=== PATIENT | female | born 1960 | race Caucasian/White ===

== ENCOUNTER → 2017-10-16 12:39 | Outpatient (CLI) | payer MEDICARE, SELFPAY ==
[2017-10-16 13:11] LABS: Alanine Aminotransferase 34 IU/L (9-52); Albumin 4.7 g/dL (3.5-5.0); Albumin Globulin Ratio 1.5 (1.0-2.8); Alkaline Phosphatase 65 U/L (38-126); Aspartate Aminotransferase 27 IU/L (14-36); Bilirubin Total 0.9 mg/dL (0.2-1.3); Blood Urea Nitrogen 12 mg/dL (7-17); Calcium 9.5 mg/dL (8.4-10.2); Carbon Dioxide 27 mmol/L (22-32); Chloride 97 mmol/L (98-107); Estimated Glomerular Filt Rate > 60.0 mL/min (>60); Globulin 3.2 g/dL (1.7-4.1); Glucose 134 mg/dL (70-100); HEMOLYSIS < 15 (0-50); Potassium 3.8 mmol/L (3.4-5.1); Sodium 134 mmol/L (137-145); Total Protein 7.9 g/dL (6.3-8.2)
[2017-10-16 14:11] LABS: Thyroid Stimulating Hormone 2.46 uIU/mL (0.47-4.68)
== END ==
PROVIDERS: PCP Nurse Practitioner; Visit Provider Internal Medicine Cardiovascular Disease
DX: T46.2X5A Adverse effect of other antidysrhythmic drugs, initial encounter (principal); I49.8 Other specified cardiac arrhythmias
CPT/HCPCS: 36415; 80053; 84443

== ENCOUNTER 2018-04-11 13:38 | Observation (INO) | payer MEDICARE, SELFPAY ==
[2018-04-11 13:50] VITALS: BP 202/131; PULSE 72; RESP 18; TEMP 36.3; O2SAT 100; BMI 21.7
--- NOTE | 2018-04-11 13:54 | ED_ITS ---
HPI - General Adult General Chief complaint: Hypertension Stated complaint: HIGH BLOOD PRESSURE Time Seen by Provider: 04/11/18 13:53 Source: patient Mode of arrival: ambulatory Limitations: no limitations History of Present Illness HPI narrative: 57-year-old female with a known history of hypertension currently on amlodipine and metoprolol. She states she did take her medications this morning. She states she was sitting on her couch where she started to not feel very well. Had fairly vague symptoms although did describe a chest tightness. No shortness of breath. She states she went took her blood pressure in the top number was 240. She also states she has slight headache and then noticed she had some redness around her left eye. She states that her blood pressure does fluctuate. She does not know where she ?normally runs ?no lower extremity swelling. Related Data Home Medications Medication Instructions Recorded Confirmed ibuprofen 200 mg PO PRN #0 08/29/10 12/09/17 amiodarone 400 mg PO QDAY #0 10/27/16 12/09/17 propranolol 80 mg PO QDAY #0 10/27/16 12/09/17 metoprolol tartrate 25 mg tablet 25 mg PO BID 12/09/17 12/09/17 Allergies Allergy/AdvReac Type Severity Reaction Status Date / Time duloxetine [DULOXETINE] Allergy Mild RASH, Verified 04/11/18 13:50 INCREASED HEART RATE. Review of Systems Constitutional Reports fatigue, Denies fever(s), Denies frequent falls, Reports headache(s), Reports malaise and Denies weakness Eyes Comments: Redness around the left eye ENT Ears, Nose, Mouth, and Throat: Denies vertigo, Denies dizziness and Reports headache(s) Cardiovascular Reports chest pain, Denies diaphoresis, Denies syncope, Denies rapid heart rate , Denies edema, Denies irregular heart rhythm, Denies leg edema, Denies lightheadedness, Denies palpitations, Denies dyspnea and Denies slow heart rate Respiratory Denies cough, Denies dyspnea and Denies wheezing Gastrointestinal Gastrointestinal: Denies abdominal pain, Denies nausea and Denies vomiting Genitourinary Denies dysuria Musculoskeletal Denies myalgias and Denies arthralgias Integumentary/Breasts Denies lesions Neurologic Denies confusion, Denies vertigo, Denies dizziness, Denies syncope, Denies frequent falls, Reports headache(s) and Denies weakness Psychiatric Denies confusion Endocrine Reports fatigue and Denies palpitations Hematologic/Lymphatic Comments: Not on anticoagulation Allergic/Immunologic Denies wheezing PFSH Medical History Hypertension (Acute) Tachyarrhythmia (Acute) Surgical History History of implantable cardioverter-defibrillator (ICD) placement (Acute) Status post surgery (02/12/09) Status post surgery (09/02/10) Social History Smoking Status: Never smoker Exam Initial Vital Signs Initial Vital Signs: Vital Signs Temperature 97.4 F L 04/11/18 13:50 Pulse Rate 72 04/11/18 13:50 Respiratory Rate 18 04/11/18 13:50 Blood Pressure 202/131 H 04/11/18 13:50 Pulse Oximetry 100 04/11/18 13:50 Const General: cooperative, healthy appearing, comfortable, well developed, well groomed and No acute distress Orientation: alert, awake and oriented x3 Limitations: mental status not altered HENMT Head: normal to inspection and normocephalic Ears: hearing grossly normal bilaterally Nose: external nose normal Face and sinus: normal facial exam Mouth: oral mucosae normal Eyes Pupils: PERRL EOM: EOM intact bilaterally Other: Left-sided temporal subconjunctival hemorrhage Resp Effort & Inspection: normal respiratory effort Auscultation: clear to auscultation bilaterally Cardio Rate: regular rate Rhythm: regular rhythm Pulses: radial pulses present GI Inspection: non-distended Palpation: No firm and No tender Back/Spine/Pelvis Back: No CVA tenderness Skin Lesions: no lesions Rashes: no rashes Neuro General: alert, awake and oriented x3 Cranial Nerves: CN's II-XI intact bilaterally Cognition: normal cognition Speech: speech normal Gait: normal gait Motor: muscle tone normal throughout Sensory Exam: no sensory deficits noted Extrem General: normal to inspection, capillary refill normal and No edema Psych Appearance: grossly normal and well kempt Course Orders Ordered: ED Orders 04/11/18 14:09 CT head/brain wo con Stat XR chest 1V Stat EKG-12 Lead Stat 04/11/18 14:25 B Type Natriuretic Peptide Stat Basic Metabolic Panel Stat Complete Blood Count AUTO DIFF Stat Troponin I Stat 04/11/18 17:05 Troponin I Stat 04/11/18 18:38 Education, smoking cessation ONGOING 04/11/18 23:00 Troponin I Routine Acetaminophen (Tylenol) 650 mg PO Q6HR PRN PRN Reason: As Needed for Fever/Mild Pain Enoxaparin Sodium (Lovenox) 40 mg SUBCUT DAILY [facility] Sodium Chloride (Normal Saline 0.9%) 1,000 mls @ 70 mls/hr IV CONT [facility] Metoprolol Tartrate (Lopressor) 25 mg PO BID [facility] Metoprolol Tartrate (Lopressor) 5 mg IV Q6H PRN PRN Reason: SBP>180 AND/OR HR >110 Morphine Sulfate (Morphine) 2 mg IV Q4HR PRN PRN Reason: Pain, Moderate (4-6) Nitroglycerin (Nitrostat) 0.4 mg SL [id number] PRN PRN Reason: Chest Pain Ondansetron HCl (Zofran) 4 mg IV Q8HR PRN PRN Reason: Nausea And Vomiting Discontinued Medications Acetaminophen (Tylenol) 650 mg PO NOW ONE Stop: 04/11/18 14:08 Last Admin: 04/11/18 14:26 Dose: 650 mg Amiodarone HCl (Cordarone) 400 mg PO DAILY [facility] Aspirin (Aspirin Chew) 324 mg PO NOW ONE Stop: 04/11/18 17:56 Last Admin: 04/11/18 18:18 Dose: 324 mg Lorazepam (Ativan) 1 mg PO NOW ONE Stop: 04/11/18 17:56 Last Admin: 04/11/18 18:18 Dose: 1 mg Ondansetron HCl (Zofran) 4 mg IV NOW ONE Stop: 04/11/18 14:08 Last Admin: 04/11/18 14:26 Dose: 4 mg Vital Signs - 8 hr 04/11/18 13:50 04/11/18 15:30 04/11/18 16:30 Temperature 97.4 F L Pulse Rate 72 60 61 Respiratory Rate 18 21 19 Blood Pressure 202/131 H Blood Pressure [Right Arm] 132/95 H 146/91 H Pulse Oximetry 100 97 100 04/11/18 18:00 Temperature Pulse Rate 76 Respiratory Rate 16 Blood Pressure Blood Pressure [Right Arm] 182/111 H Pulse Oximetry 100 Medical Decision Making Lab Data Lab results reviewed: Yes I reviewed the patient's lab results. Result diagrams: 04/11/18 14:25 04/11/18 14:25 Lab Results 12/30/18 12/30/18 12/30/18 Range/Units 14:25 14:25 17:05 WBC 8.5 (4.5-11.0) X10^3/uL RBC 4.49 (4.0-5.2) X10^6/uL Hgb 14.7 (12.0-16.0) g/dL Hct 41.9 (36-46) % MCV 93.2 (80-100) fL MCH 32.7 (26-34) PG MCHC 35.1 (30-36) % RDW 13.4 (11.6-14.8) % Plt Count 276 (150-400) X10^3/uL Neut % (Auto) 70.6 (50-75) % Lymph % (Auto) 17.4 L (25-40) % [place] % (Auto) 7.3 (3-14) % Eos % (Auto) 3.3 (2-4) % Baso % (Auto) 1.4 (0-2) % Neut # (Auto) 6000 (2290-2697) /uL Sodium 135 L (137-145) mmol/L Potassium 3.8 (3.4-5.1) mmol/L Chloride 99 (98-107) mmol/L Carbon Dioxide 24 (22-32) mmol/L BUN 16 (7-17) mg/dL Creatinine 0.80 (0.52-1.04) mg/dL Estimated GFR > 60.0 (>60) mL/min BUN/Creatinine Ratio 20.0 (6-22) Glucose 98 (70-100) mg/dL Calcium 9.8 (8.4-10.2) mg/dL Troponin I < 0.012 0.019 (0.01-0.034) ng/mL B-Natriuretic Peptide < 100 (<100) Imaging Data Chest x-ray: Radiologist's impression: PROCEDURE: XR CHEST 1V INDICATIONS: CP and SOB TECHNIQUE: One view of the chest was acquired. COMPARISON: [facility], CHEST 2 VIEW, 07/07/2017, 9:10. [facility], CHEST 1 VIEW, 10/27/2016, 10:14. [facility], CHEST 1 VIEW, 09/02/2015, 14:41. [facility], CHEST 2 VIEW, 04/25/2015, 14:30. FINDINGS: Surgical changes and devices: Cardiac pacer device with lead projecting to the right atrium and right ventricle noted. Lungs and pleura: No pleural effusions or pneumothorax. Lungs are clear. Mediastinum: Mediastinal contours appear normal. Heart size is normal. Bones and chest wall: No suspicious bony lesions. Overlying soft tissues appear unremarkable. IMPRESSION: No acute cardiopulmonary disease. Dictated by: Abilio Abernathy M.D. on 04/11/2018 at 14:52 CT scan - head: Radiologist's impression: PROCEDURE: CT HEAD/BRAIN WO CON INDICATIONS: headache/ HTN/ nausea TECHNIQUE: Noncontrast 4.5 mm thick angled axial sections acquired from the foramen magnum to the vertex, with coronal and sagittal reformats. For radiation dose reduction, the following was used: automated exposure control, adjustment of mA and/or kV according to patient size. COMPARISON: [facility], CT, CT ANGIO CHEST PE, 08/12/2017, 19:34. [facility], CT, CT CHEST WITH CONTRAST, 08/01/2017, 22:12. [facility] , CT, C-SPINE WITHOUT CONTRAST, 09/19/2015, 7:51. [facility], CT, HEAD AND NECK ANGIO, 09/19/2015, 7:51. FINDINGS: Image quality: Excellent. CSF spaces: Basal cisterns are patent. No extra-axial fluid collections. Ventricles are normal in size and shape. Brain: No midline shift. No intracranial masses or hemorrhage. Curtis-white matter interface is normal. Calcified plaque of the intracranial vasculature noted. Skull and face: Calvarium and visualized facial bones are intact, without suspicious lesions. Sinuses: Visualized sinuses and mastoids are clear. IMPRESSION: No acute intracranial abnormality. ECG Data Attestation: I personally reviewed and interpreted this ECG as follows: Prior ECG tracings: not available for review Interpretation: Sinus rhythm Ventricular rate is 68 Normal axis Normal intervals Normal QRS No ST T wave changes MDM Narrative Medical decision making narrative: Patient does report an improvement of her symptoms after time here in the emergency department. Her blood pressure did improve. Her initial troponin was negative. The 2nd troponin was detectable however not positive. This is a slight trend in the upper direction. She has no ischemic changes on EKG. She was given an aspirin here in the ER. I have low suspicion for intracranial hemorrhage. Her head CT was negative. She has no neurologic deficits. She does have left-sided conjunctival hemorrhage. Unsure if this is related to the hypertension or unknown trauma to the left eye. I do have some concern given her chest discomfort and her hypertension and the fact that the repeat troponin was trending and upper direction despite not being positive. I feel that admission to the hospital for continued trending of troponins and further observation is warranted. I discussed the case with Dr. Ramirez who accepts the patient for admission. I did inform the patient about the admission. She expressed understanding and agreement with this plan. Discharge Plan Departure Patient Disposition: Admitted As Inpatient Clinical Impression: Hypertension, Chest pain, JORGE (subconjunctival hemorrhage) Admit Date/Time: 04/11/18 18:31 Admit Provider: Alfonso Hutchinson
--- NOTE | 2018-04-11 14:09 | DI.CT.S_ITS ---
PROCEDURE: CT HEAD/BRAIN WO CON INDICATIONS: headache/ HTN/ nausea TECHNIQUE: Noncontrast 4.5 mm thick angled axial sections acquired from the foramen magnum to the vertex, with coronal and sagittal reformats. For radiation dose reduction, the following was used: automated exposure control, adjustment of mA and/or kV according to patient size. COMPARISON: [facility], CT, CT ANGIO CHEST PE, 08/12/2017, 19:34. [facility], CT, CT CHEST WITH CONTRAST, 08/01/2017, 22:12. [facility], CT, C-SPINE WITHOUT CONTRAST, 09/19/2015, 7:51. [facility], CT, HEAD AND NECK ANGIO, 09/19/2015, 7:51. FINDINGS: Image quality: Excellent. CSF spaces: Basal cisterns are patent. No extra-axial fluid collections. Ventricles are normal in size and shape. Brain: No midline shift. No intracranial masses or hemorrhage. Curtis-white matter interface is normal. Calcified plaque of the intracranial vasculature noted. Skull and face: Calvarium and visualized facial bones are intact, without suspicious lesions. Sinuses: Visualized sinuses and mastoids are clear. IMPRESSION: No acute intracranial abnormality. Dictated by: Abilio Abernathy M.D. on 04/11/2018 at 14:47 Approved by: Abilio Abernathy M.D. on 04/11/2018 at 14:52
--- NOTE | 2018-04-11 14:09 | DI.RAD.S_ITS ---
PROCEDURE: XR CHEST 1V INDICATIONS: CP and SOB TECHNIQUE: One view of the chest was acquired. COMPARISON: [facility], CHEST 2 VIEW, 07/07/2017, 9:10. [facility], CHEST 1 VIEW, 10/27/2016, 10:14. [facility], CHEST 1 VIEW, 09/02/2015, 14:41. [facility], CHEST 2 VIEW, 04/25/2015, 14:30. FINDINGS: Surgical changes and devices: Cardiac pacer device with lead projecting to the right atrium and right ventricle noted. Lungs and pleura: No pleural effusions or pneumothorax. Lungs are clear. Mediastinum: Mediastinal contours appear normal. Heart size is normal. Bones and chest wall: No suspicious bony lesions. Overlying soft tissues appear unremarkable. IMPRESSION: No acute cardiopulmonary disease. Dictated by: Abilio Abernathy M.D. on 04/11/2018 at 14:52 Approved by: Abilio Abernathy M.D. on 04/11/2018 at 14:54
[2018-04-11] MEDS: ACETAMINOPHEN 325 MG TABLET 650 MG PO ×2 (14:26→20:01)
[2018-04-11] MEDS: ONDANSETRON 4 MG/2 ML INJ IV (14:26)
[2018-04-11 14:31] LABS: Add Manual Diff / Slide Review NO; Basophils Percent Auto 1.4 % (0-2); Eosinophils Percent Auto 3.3 % (2-4); Hematocrit 41.9 % (36-46); Hemoglobin 14.7 g/dL (12.0-16.0); Lymphocytes Percent Auto 17.4 % (25-40); Mean Corpuscular HGB Conc 35.1 % (30-36); Mean Corpuscular Hemoglobin 32.7 PG (26-34); Mean Corpuscular Volume 93.2 fL (80-100); Monocytes Percent Auto 7.3 % (3-14); Neutrophils Absolute Auto 6000 /uL (1500-7000); Neutrophils Percent Auto 70.6 % (50-75); Platelet Count 276 X10^3/uL (150-400); Red Blood Cell Count 4.49 X10^6/uL (4.0-5.2); Red Cell Distribution Width 13.4 % (11.6-14.8); White Blood Cell Count 8.5 X10^3/uL (4.5-11.0)
[2018-04-11 14:41] LABS: Blood Urea Nitrogen 16 mg/dL (7-17); Calcium 9.8 mg/dL (8.4-10.2); Carbon Dioxide 24 mmol/L (22-32); Chloride 99 mmol/L (98-107); Estimated Glomerular Filt Rate > 60.0 mL/min (>60); Glucose 98 mg/dL (70-100); HEMOLYSIS < 15 (0-50); Potassium 3.8 mmol/L (3.4-5.1); Sodium 135 mmol/L (137-145)
[2018-04-11 14:48] LABS: B Type Natriuretic Peptide < 100 (<100)
[2018-04-11 14:54] LABS: Troponin I < 0.012 ng/mL (0.01-0.034)
--- NOTE | 2018-04-11 14:55 | PC.NURSE ---
Pt noticed eye red and stated feeling crummy. checked bp and was elevated well into the 200s. BP continues to be elevated. Has had head ache and reports pain has increased into back of neck.
[2018-04-11 15:30] VITALS: BP 132/95; PULSE 60; RESP 21; O2SAT 97
[2018-04-11 16:30] VITALS: BP 146/91; PULSE 61; RESP 19; O2SAT 100
[2018-04-11 17:32] LABS: Troponin I 0.019 ng/mL (0.01-0.034)
[2018-04-11 18:00] VITALS: BP 182/111; PULSE 76; RESP 16; O2SAT 100
[2018-04-11] MEDS: ASPIRIN 81 MG TAB 324 MG PO (18:18)
[2018-04-11] MEDS: LORazepam 1 MG TABLET PO (18:18)
[2018-04-11 19:20] VITALS: BP 175/112; PULSE 66; RESP 18; TEMP 36.6; O2SAT 99
[2018-04-11 19:32] VITALS: BMI 21.7
[2018-04-11 19:48] VITALS: BP 175/112; PULSE 66; RESP 18; TEMP 36.6; O2SAT 98
[2018-04-11] MEDS: SODIUM CHLORIDE 0.9% 1,000 ML 70 ML IV (19:59)
[2018-04-11] MEDS: METOPROLOL IR 25 MG TABLET PO (22:10)
[2018-04-11] MEDS: ZOLPIDEM 5 MG TABLET PO (22:10)
[2018-04-11 23:36] LABS: Troponin I < 0.012 ng/mL (0.01-0.034)
[2018-04-12] VITALS: BP 101/61; PULSE 60; RESP 18; TEMP 36.5; O2SAT 95
[2018-04-12 00:45] VITALS: O2SAT 99
--- NOTE | 2018-04-12 01:16 | PC.NURSE ---
0050 Pt. tele showing VT in the monitor, ELECTRONIC TEST TECHNICIAN called reports SVT for almost a minute. Rechecked her B/P 126/92 & HR 68 & she's moving in bed. Pt. reports still having a GOMEZ, but my CP is not that bad. Ambulated to the BR & tolerated activity well. Voiding QS was not able to measure, she missed the hat. Will cont. POC & monitor.
[2018-04-12 05:55] VITALS: BP 94/59; PULSE 60; RESP 16; TEMP 36.4; O2SAT 95
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
[2018-04-12 06:28] VITALS: BP 106/67; PULSE 60
--- NOTE | 2018-04-12 06:44 | PC.NURSE ---
Hospitalist here & seen pt. PHYSICIANS ASSISTANT called tele had a runs of VT/SVT reported to Dr. Ramirez he stated she need to follow up with her Package Checker. Pt. denies any CP & other discomfort, Will report to day RN.
--- NOTE | 2018-04-12 06:52 | PM.DS.1 ---
History of Present Illness Chief complaint: HIGH BLOOD PRESSURE Narrative: This is a 57-year-old female with a past medical history significant for hypertension as well as cardiac arrhythmia. Patient presents to the hospital complaining of chest discomfort. She reported chest pain mostly located at the mid epigastric area. There was no radiation of the pain. There was no nausea or vomiting associated with the symptoms. No syncopal or presyncopal episode. No chest palpitation.. The chest pain was reported as being dull in nature. Nothing made it better or worse. She denies any orthopnea. No shortness of breath or dyspnea on exertion. She denied any dizziness or drowsiness. She does not understand why her blood pressure went high. In any case she stated that she has been compliant with her medications. She followed Dr. Jia jones as a director loss prevention. She has a defibrillator which was changed recently and appeared to be functioning well. She denies any recent weight loss or weight gain. No swelling to the lower extremities. She is not a smoker. She does not abuse alcohol or illicit drugs. She had no other complaints. Discharge Providers Date of admission: 04/11/18 18:31 Primary care physician: ERMELINDA Sanz Discharge provider: Alfonso Hutchinson DO Discharge Date: 04/12/18 Summary Discharge Diagnosis: CHEST PAIN. ATYPICAL IN NATURE. ACS RULED OUT ACCELERATED HYPERTENSION. RESOLVED; BACK TO BASELINE TACHYARRHYTHMIA PER HISTORY. AT BASELINE. PATIENT HAS A DEFIBRILLATOR. NO REPORT OF FIRING HYPONATREMIA. MILD. MONITOR FOR NOW. ADDITIONAL MANAGEMENT OUTPATIENT Hospital Course: THIS IS A VERY PLEASANT 57-YEAR-OLD FEMALE WITH A PAST MEDICAL HISTORY SIGNIFICANT FOR TACHYARRHYTHMIA. PATIENT HAD A DEFIBRILLATOR PLACED ABOUT 4 YEARS AGO WHICH WAS REPLACED THIS YEAR. PATIENT PRESENTED TO THE HOSPITAL COMPLAINING OF CHEST DISCOMFORT AND UNCONTROLLED BLOOD PRESSURE. THIS WAS DESPITE HAVING TAKEN HER HOME MEDICATION REPORTEDLY. PATIENT WAS RESTARTED ON HER HOME MEDICATION HERE. HER BLOOD PRESSURE IS BACK TO NORMAL AND APPEARED TO BE IN A LOW SIDE AT THIS POINT. HER TROPONIN WAS TRENDED AND REMAINED NEGATIVE. HER EKG DID NOT SHOW ANY SIGN OF ACUTE CORONARY SYNDROME. AT THIS TIME SHE WILL BE DISCHARGED TO HOME TO FOLLOW UP WITH HER SALES REPRESENTATIVE SUPERVISOR WHICH SHE SEES LOCALLY. ADDITIONAL MANAGEMENT WILL BE DEFERRED TO THE TEAM Status at Discharge Cognitive/behavioral status at discharge: DISCHARGED TO HOME IN STABLE CONDITION Functional status at discharge: independent ambulation Overall status at discharge: patient is back to baseline Time Spent with Patient Greater than 30 minutes Exam Vital Signs (past 8 hours): - 04/12/18 00:00 04/12/18 00:45 04/12/18 05:55 Temperature 97.7 F 97.5 F L Pulse Rate 60 60 Respiratory Rate 18 16 Blood Pressure 101/61 94/59 L Pulse Oximetry 95 99 95 04/12/18 06:28 Temperature Pulse Rate 60 Respiratory Rate Blood Pressure 106/67 Pulse Oximetry Oxygen Delivery Method Room Air Narrative Exam Narrative: NO ACUTE DISTRESS. PATIENT IS ALERT ORIENTED X3. VITAL SIGNS STABLE HEAD ATRAUMATIC NORMOCEPHALIC NECK : SUPPLE WITHOUT ADENOPATHY NO CAROTID BRUITS EYE: EOMI, PERRLA, NORMAL CONJUNCTIVA; NO JAUNDICE CHEST: REGULAR RATE. NO RUBS. PMI IS NON DISPLACED. NO MURMURS; NORMAL S1-S2 PULMONARY: CLEAR TO AUSCULTATION BILATERALLY. NO WHEEZING. NO RHONCHI. NO INCREASED DULLNESS TO PERCUSSION ABDOMEN: SOFT. NONTENDER. NONDISTENDED. BOWEL SOUNDS ARE PRESENT IN ALL 4 QUADRANTS. NO MASS. EXTREMITIES: NO EDEMA.. NO CYANOSIS CLUBBING NOTED. NEURO: CRANIAL NERVES 2-12 GROSSLY INTACT. NO FOCAL NEUROLOGICAL DEFICIT NOTED. MSK: NORMAL RANGE OF MOTION FOR AGE. NO JOINT EFFUSION. SKIN: NORMAL FOR ETHNICITY; NO ECCHYMOSIS. NO LESION. GOOD TURGOR.; NO RASHES : NORMAL EXTERNAL GENITALIA. PSYCH : APPROPRIATE MOOD AND AFFECT. ALERT AWAKE ORIENTED X3 Objective Labs Result Diagrams: 04/11/18 14:25 04/11/18 14:25 Labs: Laboratory Results - last 24 hr 04/11/18 04/11/18 04/11/18 14:25 14:25 17:05 WBC 8.5 RBC 4.49 Hgb 14.7 Hct 41.9 MCV 93.2 MCH 32.7 MCHC 35.1 RDW 13.4 Plt Count 276 Neut % (Auto) 70.6 Lymph % (Auto) 17.4 L [place] % (Auto) 7.3 Eos % (Auto) 3.3 Baso % (Auto) 1.4 Neut # (Auto) 6000 Sodium 135 L Potassium 3.8 Chloride 99 Carbon Dioxide 24 BUN 16 Creatinine 0.80 Estimated GFR > 60.0 BUN/Creatinine Ratio 20.0 Glucose 98 Calcium 9.8 Troponin I < 0.012 0.019 B-Natriuretic Peptide < 100 04/11/18 22:50 WBC RBC Hgb Hct MCV MCH MCHC RDW Plt Count Neut % (Auto) Lymph % (Auto) [place] % (Auto) Eos % (Auto) Baso % (Auto) Neut # (Auto) Sodium Potassium Chloride Carbon Dioxide BUN Creatinine Estimated GFR BUN/Creatinine Ratio Glucose Calcium Troponin I < 0.012 B-Natriuretic Peptide Discharge Plan Discharge Plan Patient Disposition: Home Discharge comment: DC HOME ACT SHIV CARDIAC DIET F/U WITH SALES REPRESENTATIVE SUPERVISOR 3-7 DAYS Discharge Med Rec/Prescriptions Prescriptions: New aspirin 81 mg Tablet,Delayed Release (Dr/Ec) 81 mg PO DAILY Qty: 30 RF: 0 nitroglycerin [Nitrostat] 0.4 mg Tablet, Sublingual 0.4 mg Sublingual [id number] PRN (Reason: Chest Pain) Qty: 20 RF: 0 omega-3 fatty acids [Fish Oil Concentrate] 1,000 mg capsule 1,000 mg PO DAILY Qty: 30 RF: 0 niacin 500 mg tablet 500 mg PO DAILY Qty: 30 RF: 0 Continue metoprolol tartrate 25 mg tablet 25 mg PO BID RF: 0 ibuprofen 200 MG tablet 200 mg PO PRN Qty: 0 RF: 0 amiodarone 200 MG tablet 400 mg PO QDAY Qty: 0 RF: 0 Provider Discharge Instructions Diet: Low-fat and Low-cholesterol Skin/Wound/Dressing Care Report to your healthcare provider any signs of infection, such as:: chills, fever, night sweats, increased pain, unusual drainage and unusual redness Discharge Data Primary Care Provider: Yaima Ace Attending Provider: Alfonso Hutchinson Admit Date/Time: 04/11/18 18:31
--- NOTE | 2018-04-12 06:55 | P.DS_ITS ---
History of Present Illness Chief complaint: HIGH BLOOD PRESSURE Narrative: This is a 57-year-old female with a past medical history significant for hypertension as well as cardiac arrhythmia. Patient presents to the hospital complaining of chest discomfort. She reported chest pain mostly located at the mid epigastric area. There was no radiation of the pain. There was no nausea or vomiting associated with the symptoms. No syncopal or presyncopal episode. No chest palpitation.. The chest pain was reported as being dull in nature. Nothing made it better or worse. She denies any orthopnea. No shortness of breath or dyspnea on exertion. She denied any dizziness or drowsiness. She does not understand why her blood pressure went high. In any case she stated that she has been compliant with her medications. She followed Dr. Jia jones as a search marketing coordinator. She has a defibrillator which was changed recently and appeared to be functioning well. She denies any recent weight loss or weight gain. No swelling to the lower extremities. She is not a smoker. She does not abuse alcohol or illicit drugs. She had no other complaints. Discharge Providers Date of admission: 04/11/18 18:31 Primary care physician: ERMELINDA Sanz Discharge provider: Alfonso Hutchinson DO Discharge Date: 04/12/18 Summary Discharge Diagnosis: CHEST PAIN. ATYPICAL IN NATURE. ACS RULED OUT ACCELERATED HYPERTENSION. RESOLVED; BACK TO BASELINE TACHYARRHYTHMIA PER HISTORY. AT BASELINE. PATIENT HAS A DEFIBRILLATOR. NO REPORT OF FIRING HYPONATREMIA. MILD. MONITOR FOR NOW. ADDITIONAL MANAGEMENT OUTPATIENT Hospital Course: THIS IS A VERY PLEASANT 57-YEAR-OLD FEMALE WITH A PAST MEDICAL HISTORY SIGNIFICANT FOR TACHYARRHYTHMIA. PATIENT HAD A DEFIBRILLATOR PLACED ABOUT 4 YEARS AGO WHICH WAS REPLACED THIS YEAR. PATIENT PRESENTED TO THE HOSPITAL COMPLAINING OF CHEST DISCOMFORT AND UNCONTROLLED BLOOD PRESSURE. THIS WAS DESPITE HAVING TAKEN HER HOME MEDICATION REPORTEDLY. PATIENT WAS RESTARTED ON HER HOME MEDICATION HERE. HER BLOOD PRESSURE IS BACK TO NORMAL AND APPEARED TO BE IN A LOW SIDE AT THIS POINT. HER TROPONIN WAS TRENDED AND REMAINED NEGATIVE. HER EKG DID NOT SHOW ANY SIGN OF ACUTE CORONARY SYNDROME. AT THIS TIME SHE WILL BE DISCHARGED TO HOME TO FOLLOW UP WITH HER EXHIBIT CARPENTER WHICH SHE SEES LOCALLY. ADDITIONAL MANAGEMENT WILL BE DEFERRED TO THE TEAM Status at Discharge Cognitive/behavioral status at discharge: DISCHARGED TO HOME IN STABLE CONDITION Functional status at discharge: independent ambulation Overall status at discharge: patient is back to baseline Time Spent with Patient Greater than 30 minutes Exam Vital Signs (past 8 hours): - 04/12/18 00:00 04/12/18 00:45 04/12/18 05:55 Temperature 97.7 F 97.5 F L Pulse Rate 60 60 Respiratory Rate 18 16 Blood Pressure 101/61 94/59 L Pulse Oximetry 95 99 95 04/12/18 06:28 Temperature Pulse Rate 60 Respiratory Rate Blood Pressure 106/67 Pulse Oximetry Oxygen Delivery Method Room Air Narrative Exam Narrative: NO ACUTE DISTRESS. PATIENT IS ALERT ORIENTED X3. VITAL SIGNS STABLE HEAD ATRAUMATIC NORMOCEPHALIC NECK : SUPPLE WITHOUT ADENOPATHY NO CAROTID BRUITS EYE: EOMI, PERRLA, NORMAL CONJUNCTIVA; NO JAUNDICE CHEST: REGULAR RATE. NO RUBS. PMI IS NON DISPLACED. NO MURMURS; NORMAL S1- S2 PULMONARY: CLEAR TO AUSCULTATION BILATERALLY. NO WHEEZING. NO RHONCHI. NO INCREASED DULLNESS TO PERCUSSION ABDOMEN: SOFT. NONTENDER. NONDISTENDED. BOWEL SOUNDS ARE PRESENT IN ALL 4 QUADRANTS. NO MASS. EXTREMITIES: NO EDEMA.. NO CYANOSIS CLUBBING NOTED. NEURO: CRANIAL NERVES 2-12 GROSSLY INTACT. NO FOCAL NEUROLOGICAL DEFICIT NOTED. MSK: NORMAL RANGE OF MOTION FOR AGE. NO JOINT EFFUSION. SKIN: NORMAL FOR ETHNICITY; NO ECCHYMOSIS. NO LESION. GOOD TURGOR.; NO RASHES : NORMAL EXTERNAL GENITALIA. PSYCH : APPROPRIATE MOOD AND AFFECT. ALERT AWAKE ORIENTED X3 Objective Labs Result Diagrams: 04/11/18 14:25 04/11/18 14:25 Labs: Laboratory Results - last 24 hr 04/11/18 04/11/18 04/11/18 14:25 14:25 17:05 WBC 8.5 RBC 4.49 Hgb 14.7 Hct 41.9 MCV 93.2 MCH 32.7 MCHC 35.1 RDW 13.4 Plt Count 276 Neut % (Auto) 70.6 Lymph % (Auto) 17.4 L [place] % (Auto) 7.3 Eos % (Auto) 3.3 Baso % (Auto) 1.4 Neut # (Auto) 6000 Sodium 135 L Potassium 3.8 Chloride 99 Carbon Dioxide 24 BUN 16 Creatinine 0.80 Estimated GFR > 60.0 BUN/Creatinine Ratio 20.0 Glucose 98 Calcium 9.8 Troponin I < 0.012 0.019 B-Natriuretic Peptide < 100 04/11/18 22:50 WBC RBC Hgb Hct MCV MCH MCHC RDW Plt Count Neut % (Auto) Lymph % (Auto) [place] % (Auto) Eos % (Auto) Baso % (Auto) Neut # (Auto) Sodium Potassium Chloride Carbon Dioxide BUN Creatinine Estimated GFR BUN/Creatinine Ratio Glucose Calcium Troponin I < 0.012 B-Natriuretic Peptide Discharge Plan Discharge Plan Patient Disposition: Home Discharge comment: DC HOME ACT SHIV CARDIAC DIET F/U WITH EXHIBIT CARPENTER 3-7 DAYS Discharge Med Rec/Prescriptions Prescriptions: New aspirin 81 mg Tablet,Delayed Release (Dr/Ec) 81 mg PO DAILY Qty: 30 RF: 0 nitroglycerin [Nitrostat] 0.4 mg Tablet, Sublingual 0.4 mg Sublingual [id number] PRN (Reason: Chest Pain) Qty: 20 RF: 0 omega-3 fatty acids [Fish Oil Concentrate] 1,000 mg capsule 1,000 mg PO DAILY Qty: 30 RF: 0 niacin 500 mg tablet 500 mg PO DAILY Qty: 30 RF: 0 Continue metoprolol tartrate 25 mg tablet 25 mg PO BID RF: 0 ibuprofen 200 MG tablet 200 mg PO PRN Qty: 0 RF: 0 amiodarone 200 MG tablet 400 mg PO QDAY Qty: 0 RF: 0 Provider Discharge Instructions Diet: Low-fat and Low-cholesterol Skin/Wound/Dressing Care Report to your healthcare provider any signs of infection, such as:: chills, fever, night sweats, increased pain, unusual drainage and unusual redness Discharge Data Primary Care Provider: Yaima Ace Attending Provider: Alfonso Hutchinson Admit Date/Time: 04/11/18 18:31
[2018-04-12] MEDS: SODIUM CHLORIDE 0.9% FLUSH 10 ML IV (07:33)
[2018-04-12 08:00] VITALS: BP 99/70; PULSE 60; RESP 18; TEMP 36.6; O2SAT 95
[2018-04-12 08:30] VITALS: O2SAT 99
[2018-04-12] MEDS: ASPIRIN EC 81 MG TABLET PO (08:30)
--- NOTE | 2018-04-12 09:17 | CM.DANOTE ---
DCP: Case received, EMR reviewed and met with patient. Introduced self and role. DCP template completed with information currently available. Patient is a 57 year old female who admitted yesterday afternoon to the care of the hospitalist team. PCP: Dr. Ace. Payer: confirmed: Medicare. Patient came to hospital for high blood pressure/HTN. Spoke to patient, she stated that her blood pressure was in the 200s over the 100a. Patient has history of cardiac dysrhythmias, and has defibulator implant. Stated that Dr. Zuniga is following her. Her current provider listed, Dr. Ace, is a manager of radiology, and she is currently looking for a provider. Patient is independent, has significant other, and lives here in [place]. P: DCP to continue to follow. Patient may be discharged home today. Will need to follow up with her armament repairer. Kasie Gamino RN/Ornamental Painter
--- NOTE | 2018-04-12 10:20 | PC.NURSE ---
Addendum entered by Miryam Henley R.N. 04/12/18 11:14: DC - Hep lock dc'd, tele dc'd, reviewed dc instructions, scripts provided, dressed and belongings gathered, including cell phone and mouse breeder, glasses, tsf to wc and internet technology manager escorted to her car as pt drove herself. Original Note: AM NOTE - pt is alert, no complaint sob or chest pain, no nausea, earlier headache resolved, hr 60, bp 99/70, 02 sat 99% ra, in and pt will dc home, spoke to him re pt metoprolol dose and it will remain same, pt may hold for low bp.
== END 2018-04-12 10:45 | disposition home or self-care (01) ==
LOC: ED 18:21 → AC 18:43
PROVIDERS: Admitting Provider Hospitalist; Emergency Provider Emergency Medicine; PCP Nurse Practitioner; Visit Provider Hospitalist
DX: I10 Essential (primary) hypertension (principal); R00.0 Tachycardia, unspecified; Z95.810 Presence of automatic (implantable) cardiac defibrillator; E87.1 Hypo-osmolality and hyponatremia; Z79.82 Long term (current) use of aspirin
CPT/HCPCS: 36415; 36591; 70450; 71045; 80048; 83880; 84484; 85025; 93005; 96374; 96376; 99283; 99285; G0378; J2405

== ENCOUNTER 2018-07-19 15:22 | Emergency (ER) | payer MEDICARE, SELFPAY ==
[2018-07-19 15:31] VITALS: PULSE 67; RESP 20; TEMP 36.8; O2SAT 100
--- NOTE | 2018-07-19 15:38 | ED_ITS ---
HPI - Wound/Laceration General Chief Complaint: Wound/Laceration Stated Complaint: RT LEG INJURY Time Seen by Provider: 07/19/18 15:24 Source: patient Mode of arrival: ambulatory Limitations: no limitations History of Present Illness HPI narrative: Patient is a 57-year-old female here for evaluation of an injury to her right stanford. She states that she slipped while getting out of her vehicle and landed on her right stanford on the side of her truck. Has able to ambulate afterwards. Is not on blood thinners but did have bleeding and a cut. Wrapped with a bandage and Cob[place] that she had at home prior to arrival. She is unsure when her last tetanus shot was. Related Data Home Medications Medication Instructions Recorded Confirmed ibuprofen 200 mg PO PRN #0 08/29/10 04/11/18 amiodarone 200 mg PO DAILY #0 10/27/16 07/19/18 metoprolol succinate 50 mg PO BID 07/19/18 Previous Rx's Medication Instructions Recorded aspirin 81 mg PO DAILY #30 tab 04/12/18 niacin 500 mg PO DAILY #30 tab 04/12/18 nitroglycerin [Nitrostat] 0.4 mg SUBLINGUAL [id number] PRN #20 04/12/18 tab omega-3 fatty acids [Fish Oil 1,000 mg PO DAILY #30 cap 04/12/18 Concentrate] Allergies Allergy/AdvReac Type Severity Reaction Status Date / Time duloxetine [DULOXETINE] Allergy Mild RASH, Verified 04/11/18 13:50 INCREASED HEART RATE. Review of Systems Musculoskeletal Comments: No knee or ankle pain Integumentary/Breasts Comments: Cut to the front of her right stanford Neurologic Denies behavioral changes Psychiatric Denies behavioral changes Hematologic/Lymphatic Denies easy bleeding and Denies easy bruising [facility] Medical History Hypertension (Acute) Tachyarrhythmia (Acute) Social History household members: significant other Smoking Status: Never smoker alcohol intake: current Exam Initial Vital Signs Initial Vital Signs: Vital Signs Temperature 98.3 F 07/19/18 15:31 Pulse Rate 67 07/19/18 15:31 Respiratory Rate 20 07/19/18 15:31 Pulse Oximetry 100 07/19/18 15:31 Const General: cooperative, comfortable, well developed, well groomed and No acute distress Orientation: alert and awake Skin Other: 1 cm laceration to the anterior portion of the right stanford that is actively bleeding. Neuro Sensory Exam: no sensory deficits noted Extrem Other: Right knee and right ankle unremarkable Psych Appearance: grossly normal and well kempt Procedures Laceration Repair Laceration 1: Site: lower extremity Side (If applicable): right Size (cm): 1 Description: linear Depth: simple, single layer Local Anesthetic: lidocaine 1% and with epi Amount of anesthesia used (mL): 6 Pre-repair: deep structures intact Skin layer closed with: nylon Size (cm): 3-0 Number of sutures: 3 Technique: simple, interrupted Course Orders Ordered: Discontinued Medications Diphtheria/Tetanus/Acell Pertussis (Adacel) 0.5 ml IM .ONCE ONE Stop: 07/19/18 15:43 Last Admin: 07/19/18 15:43 Dose: 0.5 ml Vital Signs - 8 hr 07/19/18 15:31 Temperature 98.3 F Pulse Rate 67 Respiratory Rate 20 Pulse Oximetry 100 MDM - Wound/Laceration MDM Narrative Medical decision making narrative: Neurovascularly intact. bleeding controlled with lidocaine with epi and pressure. Three stitches were placed. Her tetanus was updated. She was given care instructions. She was given return precautions. She expressed understanding and agreement with plan. Discharge Plan Departure Patient Disposition: Home Clinical Impression: Laceration Instructions: DI for Laceration Repair Activity Restrictions/Additional Instructions: Keep the bandage on for the next 24 hours. After that you can shower like normal. Use soap and water. Do not soak her leg. You can ice it. The stitches do need to be removed in 7-10 days. Her primary care doctor can do that. Return to the emergency department for any new or worsening symptoms Prescriptions: No Action ibuprofen 200 MG tablet 200 mg PO PRN Qty: 0 RF: 0 amiodarone 200 MG tablet 200 mg PO DAILY Qty: 0 RF: 0 aspirin 81 mg Tablet,Delayed Release (Dr/Ec) 81 mg PO DAILY Qty: 30 RF: 0 nitroglycerin [Nitrostat] 0.4 mg Tablet, Sublingual 0.4 mg Sublingual [id number] PRN (Reason: Chest Pain) Qty: 20 RF: 0 omega-3 fatty acids [Fish Oil Concentrate] 1,000 mg capsule 1,000 mg PO DAILY Qty: 30 RF: 0 niacin 500 mg tablet 500 mg PO DAILY Qty: 30 RF: 0 metoprolol succinate 50 mg tablet extended release 24 hr 50 mg PO BID RF: 0 Referrals: Yaima Ace ARNP [Primary Care Provider] -
[2018-07-19] MEDS: TET,DIPH,PERTUSS(ACELL),VAC/PF 0.5 ML SYRINGE IM (15:43)
[2018-07-19 16:20] VITALS: BP 163/106; PULSE 63; RESP 18; O2SAT 98
== END 2018-07-19 16:22 | disposition home or self-care (01) ==
PROVIDERS: Emergency Provider Emergency Medicine; PCP Nurse Practitioner
DX: S81.811A Laceration without foreign body, right lower leg, initial encounter (principal); W19.XXXA Unspecified fall, initial encounter; Z23 Encounter for immunization
CPT/HCPCS: 12001; 90471; 99283; 90715

== ENCOUNTER 2018-07-28 15:04 | Emergency (ER) | payer MEDICARE, SELFPAY ==
[2018-07-28 15:07] VITALS: BP 115/74; PULSE 63; RESP 20; TEMP 36.1; O2SAT 96; BMI 21.6
--- NOTE | 2018-07-28 15:07 | ED.WOUNDLAC ---
HPI - Wound/Laceration <Daniela Dwyer PA-C - Last Filed: 07/28/18 22:20> General Chief Complaint: Recheck/Abnormal Lab/Rx Stated Complaint: SUTURE REMOVAL Time Seen by Provider: 07/28/18 15:07 Source: patient Mode of arrival: ambulatory Limitations: no limitations History of Present Illness HPI narrative: This 57-year-old female comes to ED for suture removal. She was seen here 07/19 for contusions and laceration to the left calf. She has a large puppy who ran into her and scratched her. She states the area is still quite tender and still has a lot of bruising, but she feels like the wound has healed. She has not had any new drainage from the wound, no new fever or other new symptoms. Related Data Home Medications Medication Instructions Recorded Confirmed ibuprofen 200 mg PO PRN #0 08/29/10 04/11/18 amiodarone 200 mg PO DAILY #0 10/27/16 07/19/18 metoprolol succinate 50 mg PO BID 07/19/18 Previous Rx's Medication Instructions Recorded aspirin 81 mg PO DAILY #30 tab 04/12/18 niacin 500 mg PO DAILY #30 tab 04/12/18 nitroglycerin [Nitrostat] 0.4 mg SUBLINGUAL [id number] PRN #20 04/12/18 tab omega-3 fatty acids [Fish Oil 1,000 mg PO DAILY #30 cap 04/12/18 Concentrate] Allergies Allergy/AdvReac Type Severity Reaction Status Date / Time duloxetine [DULOXETINE] Allergy Mild RASH, Verified 04/11/18 13:50 INCREASED HEART RATE. Review of Systems <Daniela Dwyer PA-C - Last Filed: 07/28/18 22:20> Review of Systems ROS Unobtainable: All systems reviewed & are unremarkable except as noted in HPI and below PFSH <Daniela Dwyer PA-C - Last Filed: 07/28/18 22:20> Medical History Hypertension (Acute) Tachyarrhythmia (Acute) Surgical History History of implantable cardioverter-defibrillator (ICD) placement (Acute) Status post surgery (02/12/09) Status post surgery (09/02/10) Social History household members: significant other Smoking Status: Never smoker alcohol intake: current Social History household members: significant other Smoking Status: Never smoker alcohol intake: current Exam <Daniela Dwyer PA-C - Last Filed: 07/28/18 22:20> Narrative Exam Narrative: GENERAL: Well-appearing patient is sitting comfortably DERMATOLOGIC: Right stanford and anterior lower extremity there is extensive ecchymoses, 3 mid stanford sutures are clean, dry, and intact, partly healed over. Sutures removed. Tender to touch over the stanford and around the ecchymoses. Minimal erythema around the sutures, cool to touch Initial Vital Signs Initial Vital Signs: Vital Signs Temperature 97.0 F L 07/28/18 15:07 Pulse Rate 63 07/28/18 15:07 Respiratory Rate 20 07/28/18 15:07 Blood Pressure 115/74 07/28/18 15:07 Pulse Oximetry 96 07/28/18 15:07 <Tarah Johnson DO - Last Filed: 07/29/18 09:03> Initial Vital Signs Initial Vital Signs: Vital Signs Temperature 97.0 F L 07/28/18 15:07 Pulse Rate 63 07/28/18 15:07 Respiratory Rate 20 07/28/18 15:07 Blood Pressure 115/74 07/28/18 15:07 Pulse Oximetry 96 07/28/18 15:07 Course <Daniela Dwyer PA-C - Last Filed: 07/28/18 22:20> Vital Signs - 8 hr 07/28/18 15:07 Temperature 97.0 F L Pulse Rate 63 Respiratory Rate 20 Blood Pressure 115/74 Pulse Oximetry 96 <DO Chastity Harmon Last Filed: 07/29/18 09:03> Vital Signs - 8 hr 07/28/18 15:07 Temperature 97.0 F L Pulse Rate 63 Respiratory Rate 20 Blood Pressure 115/74 Pulse Oximetry 96 Discharge Plan Departure Patient Disposition: Home Clinical Impression: Encounter for removal of sutures Discharge Date/Time: 07/28/18 15:26 Interventions: ED Discharge Assessment Last Done: 07/28/18 15:25 Instructions: DI for Suture Removal Activity Restrictions/Additional Instructions: Your wound appears healed, and I think the swelling and tenderness around are due to the impact on the soft tissues and bone. You still have a lot of bruising. Please monitor for worsening redness, pain, draining pus, or fever, which may be signs of infection. Please return to the ED or walk-in clinic if you have any of these since you do not have a local primary care provider. Otherwise please keep the area covered and protected until feeling better since you have a rambunctious puppy! Good luck with [place]! Prescriptions: No Action ibuprofen 200 MG tablet 200 mg PO PRN Qty: 0 RF: 0 amiodarone 200 MG tablet 200 mg PO DAILY Qty: 0 RF: 0 aspirin 81 mg Tablet,Delayed Release (Dr/Ec) 81 mg PO DAILY Qty: 30 RF: 0 nitroglycerin [Nitrostat] 0.4 mg Tablet, Sublingual 0.4 mg Sublingual [id number] PRN (Reason: Chest Pain) Qty: 20 RF: 0 omega-3 fatty acids [Fish Oil Concentrate] 1,000 mg capsule 1,000 mg PO DAILY Qty: 30 RF: 0 niacin 500 mg tablet 500 mg PO DAILY Qty: 30 RF: 0 metoprolol succinate 50 mg tablet extended release 24 hr 50 mg PO BID RF: 0 <Tarah Johnson DO - Last Filed: 07/29/18 09:03> [facility] ED Attending Marta Attestation: I was immediately available in the department for consultation. Documentation has been reviewed. I agree with assessment and plan.
== END 2018-07-28 15:26 | disposition home or self-care (01) ==
PROVIDERS: Emergency Provider Internal Medicine; PCP Nurse Practitioner
DX: Z48.02 Encounter for removal of sutures (principal)
CPT/HCPCS: 99282

== ENCOUNTER → 2019-01-04 15:40 | Outpatient (CLI) | payer MEDICARE, SELFPAY ==
[2019-01-04 16:19] LABS: RBC Urine None Seen (0-5/HPF)
[2019-01-04 16:38] LABS: Appearance Urine UA CLEAR; Bilirubin Urine UA NEGATIVE (NEGATIVE); Color Urine UA YELLOW; Glucose Urine UA NEGATIVE (Negative); Ketones Urine UA NEGATIVE (NEGATIVE); Leukocyte Esterase Urine UA TRACE (NEGATIVE); Nitrite Urine UA NEGATIVE (Negative); Occult Blood Urine UA NEGATIVE (Negative); Protein Urine UA NEGATIVE (Negative); Urobilinogen Urine UA 0.2 E.U./dL (0.2)
[2019-01-04 16:59] LABS: Bacteria Urine Moderate (10-30); Culture Indicated Urine Cult Not Indicated; Squamous Epithelial Cell Urine 5-10 /HPF (0-5/HPF); WBC Urine 1-5/HPF (0-5/HPF)
== END ==
DX: R30.0 Dysuria (principal)
CPT/HCPCS: 81001

== ENCOUNTER 2019-03-15 12:53 | Day surgery (SDC) | payer MEDICARE, SELFPAY ==
[2019-03-14 09:33] VITALS: BMI 22.6
[2019-03-15] VITALS (10 sets, daily range): BP systolic 146–186; BP diastolic 76–113; PULSE 60–74; RESP 10–19; TEMP 36.1; O2SAT 93–100; BMI 22.8
--- NOTE | 2019-03-15 | PATH_ITS ---
[facility] Accession Number: [id number] . 01 Material submitted: . hemorrhoids - HEMORRHOIDS X2 . 01 Diagnosis: Hemorrhoids, Hemorroidectomy: External and internal hemorrhoidal tissues. Negative for dysplasia. [facility] 03/17/2019 1545 Local . 01 Electronically signed: . Natalia Jimenez MD, Pathologist NPI- [id number] . 01 Gross description: . Received in formalin, labeled hemorrhoids x2, are multiple pieces of sharma-brown and purple bulging skin (3.5 x 1.7 x 0.7 cm in aggregate). The resection margins are inked blue. Director [employer] serial sections submitted in cassette A1. ([id number]) /MRV 03/16/2019 1225 Local . 01 Pathologist provided ICD-10: K64.9 . 01 CPT . 319546 Performed at: [address] [facility] [address], [place], [place] [id number] MD David Gonzalez MD Phone: [phone]
[2019-03-15] MEDS: LACTATED RINGERS 1,000 ML 100 ML IV (13:30)
--- NOTE | 2019-03-15 15:16 | P.OP_ITS ---
Operative Date/Time/Diagnoses Date of procedure: 03/15/19 Time of procedure: 15:16 Pre-op diagnosis: Hemorrhoid Post-op diagnosis: same Procedure & Clinicians Same procedure as scheduled: Yes
--- NOTE | 2019-03-15 15:16 | PM.OP.1 ---
Operative Date/Time/Diagnoses Date of procedure: 03/15/19 Time of procedure: 15:16 Pre-op diagnosis: Hemorrhoid Post-op diagnosis: same Procedure & Clinicians Same procedure as scheduled: Yes
--- NOTE | 2019-03-15 15:25 | PM.PREOP ---
Pre-operative Note Interval Note History & Physical reviewed/Exam performed by Physician: Yes Changes to H&P: No
--- NOTE | 2019-03-15 15:26 | PM.PREOP ---
Pre-operative Note Interval Note History & Physical reviewed/Exam performed by Physician: Yes Changes to H&P: No
--- NOTE | 2019-03-15 15:51 | SUR.OPER ---
Prone on padded OR bed, head in foam head support, gel chest rolls, gel pad under knees, pillow under lower legs, toes free of pressure, arms secured on padded arm boards at <90 degrees abduction. Safety belt at chest. Tape to from buttocks to bed bilaterally.
[2019-03-15] MEDS: BUPIVACAINE 0.25% (PF) VIAL 30 ML INJ (15:57)
[2019-03-15] MEDS: DIBUCAINE 1% OINT 28 GM 1 APPLIC TOP (15:57)
[2019-03-15] MEDS: OXYCODONE/ACETAMINOPHEN 5/325 TABLET 1 TAB PO ×2 (16:46→17:34)
--- NOTE | 2019-03-15 17:03 | SUR.PHASEII ---
Gave po pain medication 2 to c/o of pain. Pt is hypertensive at 173/114. Preop BP:157/112.
--- NOTE | 2019-03-15 17:52 | SUR.PHASEII ---
Kaci pad placed, no drainage. Pt dressed and ready to go, pt left when ready and in stable condition.
--- NOTE | 2019-03-15 18:20 | PM.OP.1 ---
Operative Date/Time/Diagnoses Date of procedure: 03/15/19 Time of procedure: 18:20 Pre-op diagnosis: Hemorrhoids Post-op diagnosis: same Procedure & Clinicians Procedure: Excisional hemorrhoidectomy Same procedure as scheduled: Yes Indications: A 58-year-old woman with symptomatic grade 3 internal hemorrhoids who presents for elective excision. Surgeon: Marcelino Sandoval Click Yes if Unassisted: Yes Anesthesia Type: General Operative Notes Findings: Prolapsing right anterior and posterior hemorrhoid pedicles Specimen(s): other (Hemorrhoid) Estimated Blood Loss (mL): 20 Procedure in detail: The patient was brought to the operating room placed supine on the table. Bilateral lower extremity compression devices were applied. General anesthesia was induced and they were intubated with an LMA. They were then placed into lithotomy position. They were then prepped and draped in usual sterile fashion. Time-out was performed ensure the correct patient procedure necessary equipment within the operating room. Rectal block was performed by injecting 20 mL of 0.25% bupivacaine into the intersphincteric groove. A internal examination of the anal canal was made. The right anterior and right posterior hemorrhoidal pedicles freely prolapsed. They were grasped elevated and excised with electorcautery off the internal spincter. The mucosal defect was then closed with a running 3-0 Vicyrl suture. Hemostasis was checked. The specimens were passed off the field. Wound was irrigated with saline. Gelfoam was then placed into the anal anal. Sponge and instrument counts were correct at the end of the procedure. They emerged from anesthesia were extubated and transferred to the postoperative care unit in stable condition Complications: none Post-operative Condition: stable Disposition: same day surgery
== END 2019-03-15 17:53 | disposition home or self-care (01) ==
PROVIDERS: Visit Provider Surgery
PROC: (CPT 46930; principal; 2019-03-15 14:15)
DX: K64.2 Third degree hemorrhoids (principal); I10 Essential (primary) hypertension
CPT/HCPCS: 46930; J2250; J2704; J3010

== ENCOUNTER 2019-05-07 12:45 | Emergency (ER) | payer MEDICARE, SELFPAY ==
[2019-04-15 10:04] VITALS: BMI 21.7
[2019-05-07 12:59] VITALS: BP 212/124; PULSE 73; RESP 14; TEMP 36.2; O2SAT 99
--- NOTE | 2019-05-07 13:27 | DI.RAD.S_ITS ---
PROCEDURE: XR CHEST 1V INDICATIONS: CHEST PAIN TECHNIQUE: One view of the chest was acquired. COMPARISON: [facility], , XR CHEST 1V, 04/11/2018, 14:33. FINDINGS: Surgical changes and devices: Left-sided cardiac pacer/defibrillator is present. Lungs and pleura: Lungs are clear. No pleural effusions or pneumothorax. Mediastinum: Mediastinal contours appear normal. Heart size is normal. Bones and chest wall: No suspicious bony lesions. Overlying soft tissues appear unremarkable. IMPRESSION: Stable chest. No acute cardiopulmonary process is evident. Dictated by: Cristi Tillman M.D. on 05/07/2019 at 13:09 Approved by: Cristi Tillman M.D. on 05/07/2019 at 13:10
[2019-05-07 13:30] VITALS: BP 219/119; PULSE 77; RESP 15; O2SAT 98
[2019-05-07] MEDS: SODIUM CHLORIDE 0.9% 1,000 ML 150 ML IV (13:35)
[2019-05-07] MEDS: ONDANSETRON 4 MG/2 ML INJ IV (13:35)
[2019-05-07 13:37] LABS: Add Manual Diff / Slide Review NO; Basophils Absolute Auto 0 /uL (0-100); Basophils Percent Auto 0.9 % (0-2); Eosinophils Absolute Auto 100 /uL (0-450); Eosinophils Percent Auto 2.9 % (2-4); Hematocrit 42.9 % (36-46); Hemoglobin 15.2 g/dL (12.0-16.0); Lymphocytes Absolute Auto 1300 /uL (1100-4500); Lymphocytes Percent Auto 26.1 % (25-40); Mean Corpuscular HGB Conc 35.4 % (30-36); Mean Corpuscular Hemoglobin 33.1 PG (26-34); Mean Corpuscular Volume 93.4 fL (80-100); Monocytes Absolute Auto 400 /uL (0-900); Monocytes Percent Auto 8.4 % (3-14); Neutrophils Absolute Auto 3200 /uL (1500-7000); Neutrophils Percent Auto 61.7 % (50-75); Platelet Count 299 X10^3/uL (150-400); Red Cell Distribution Width 14.3 % (11.6-14.8); White Blood Cell Count 5.1 X10^3/uL (4.5-11.0)
[2019-05-07] MEDS: ASPIRIN 81 MG CHEW TAB 324 MG PO (13:38)
--- NOTE | 2019-05-07 13:39 | DI.CT.S_ITS ---
PROCEDURE: CT HEAD/BRAIN WO CON INDICATIONS: bp 140/120, headache TECHNIQUE: Noncontrast 4.5 mm thick angled axial sections acquired from the foramen magnum to the vertex, with coronal and sagittal reformats. For radiation dose reduction, the following was used: automated exposure control, adjustment of mA and/or kV according to patient size. COMPARISON: [facility], CT, CT HEAD/BRAIN WO CON, 04/11/2018, 14:20. FINDINGS: Image quality: Diagnostic. CSF spaces: Basal cisterns are patent. No extra-axial fluid collections. Ventricles are normal in size and shape. Brain: No midline shift. No intracranial masses or hemorrhage. Curtis-white matter interface is normal. Skull and face: Calvarium and visualized facial bones are intact, without suspicious lesions. Sinuses: A small amount of fluid appears to be present within the dependent aspect of the superior right maxillary sinus. Bony wall thickening may be present. There may be fluid within the left mastoid air cells. Otherwise, the imaged paranasal sinuses and right mastoid air cells are clear. IMPRESSION: 1. No acute intracranial hemorrhage. 2. 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 Dictated by: Cristi Tillman M.D. on 05/07/2019 at 13:03 Approved by: Cristi Tillman M.D. on 05/07/2019 at 13:05
[2019-05-07 13:43] LABS: Alanine Aminotransferase 19 IU/L (<35); Albumin 4.9 g/dL (3.5-5.0); Albumin Globulin Ratio 1.4 (1.0-2.8); Alkaline Phosphatase 80 U/L (38-126); Aspartate Aminotransferase 30 IU/L (14-36); BUN Creatinine Ratio 14.3 (6-22); Bilirubin Total 0.9 mg/dL (0.2-1.3); Blood Urea Nitrogen 10 mg/dL (7-17); Calcium 10.5 mg/dL (8.4-10.2); Carbon Dioxide 26 mmol/L (22-32); Chloride 95 mmol/L (98-107); Creatine Kinase 29 U/L (30-135); Estimated Glomerular Filt Rate > 60.0 mL/min (>60); Globulin 3.4 g/dL (1.7-4.1); Glucose 98 mg/dL (70-100); HEMOLYSIS 15 (0-50); Sodium 132 mmol/L (137-145); Total Protein 8.3 g/dL (6.3-8.2)
[2019-05-07 13:55] LABS: Troponin I < 0.012 ng/mL (0.01-0.034)
[2019-05-07 14:10] LABS: B Type Natriuretic Peptide < 100 (<100)
[2019-05-07 14:15] VITALS: BP 177/112; PULSE 64; RESP 15; O2SAT 98
[2019-05-07] MEDS: KETOROLAC 60 MG/2 ML VIAL 30 MG IV (14:37)
[2019-05-07 14:45] VITALS: BP 172/112; PULSE 64; RESP 17; O2SAT 98
[2019-05-07 15:10] VITALS: BP 165/100; PULSE 63; RESP 18; O2SAT 100
[2019-05-07] MEDS: METOCLOPRAMIDE 10 MG/2 ML INJ IV (16:05)
[2019-05-07] MEDS: diphenhydrAMINE 50 MG/ML VIAL 25 MG IV (16:05)
[2019-05-07 16:45] LABS: Creatine Kinase 29 U/L (30-135)
[2019-05-07 16:57] LABS: Troponin I 0.018 ng/mL (0.01-0.034)
[2019-05-07 17:15] VITALS: BP 139/95; PULSE 61; RESP 11; O2SAT 99
--- NOTE | 2019-05-07 20:19 | ED_ITS ---
HPI - General Adult <Khushboo Hough SPEEDER TENDER-BC - Last Filed: 05/07/19 20:30> General Chief complaint: Hypertension Stated complaint: High BP/ severe headache Time Seen by Provider: 05/07/19 13:25 Source: patient and family Mode of arrival: Ambulatory Limitations: no limitations History of Present Illness HPI narrative: The patient is a 58-year-old female nonsmoker with history of hypertension, tachycardia with pacer ICD placement who presents with a chief complaint of hypertension and headache. She states she has been feeling unwell for the past day, is not sure if the hypertension is causing the headache or the headache is causing the hypertension. She has not taken anything at home to feel better. She states her blood pressure was of some nausea, a tightness around her ribs, denies any thunderclap sensation. Related Data Home Medications Medication Instructions Recorded Confirmed ibuprofen 200 mg PO PRN PRN #0 08/29/10 04/18/19 amiodarone 200 mg PO DAILY #0 10/27/16 04/18/19 metoprolol succinate 75 mg PO BID 07/19/18 04/18/19 alprazolam 0.5 mg PO TID PRN 03/14/19 04/18/19 Previous Rx's Medication Instructions Recorded aspirin 81 mg PO DAILY #30 tab 04/12/18 nitrofurantoin 1 cap PO .COMPLEX #30 cap 02/01/19 monohydrate/macrocrystals 100 mg capsule acetaminophen [Tylenol] 650 mg PO QID PRN #60 cap 03/15/19 docusate sodium [Colace] 100 mg PO BID #30 cap 03/15/19 oxycodone 5 mg PO Q6H PRN #60 tab 03/15/19 hydrocodone 7.5 mg-acetaminophen 1 tab PO Q4-6H PRN #30 tab 03/16/19 325 mg tablet hydrocodone-acetaminophen [Vicodin 1 tab PO Q4-6H PRN #30 tab 03/16/19 ES] ondansetron 4 mg PO Q6H PRN #30 tab 03/16/19 ondansetron 8 mg disintegrating 8 mg PO Q8H PRN #10 tab 03/18/19 tablet Allergies Allergy/AdvReac Type Severity Reaction Status Date / Time duloxetine [DULOXETINE] Allergy Mild RASH, Verified 04/18/19 15:01 INCREASED HEART RATE. Review of Systems <ABDOUL Huerta - Last Filed: 05/07/19 20:30> Review of Systems Narrative: GENERAL: Denies chills, fatigue, malaise, fever, sweats. HEENT: Denies sinus pain, ear pain, sore throat, difficulty swallowing, dizziness. RESPIRATORY: Denies dyspnea, cough, wheezing, hemoptysis, sputum. CARDIOVASCULAR: See HPI GASTROINTESTINAL: Denies nausea, vomiting, abdominal pain, diarrhea, constipation, melena. : Denies dysuria, frequency, incontinence, hematuria, urinary retention. MUSCULOSKELETAL: denies weakness, joint pain, or bony pain SKIN: Denies rash, skin lesions, or other NEUROLOGIC: See HPI PSYCHIATRIC: No concerning psychosocial issues. 12 point review of systems is negative except for those stated above Patient History <ABDOUL Huerta - Last Filed: 05/07/19 20:30> Social History household members: significant other Smoking Status: Never smoker alcohol intake: current Smoking Status: Never smoker alcohol intake frequency: holidays/special occasions only Substance Use Type: does not use Exam <ABDOUL Huerta - Last Filed: 05/07/19 20:30> Narrative Exam Narrative: GENERAL: This is a well-nourished, well-developed patient, appears uncomfortable HEAD: Atraumatic. Normocephalic. No temporal or scalp tenderness. EYES: Pupils equal round and reactive. Extraocular motions intact. No scleral icterus. No injection or drainage. ENT: Nose without bleeding, purulent drainage or septal hematoma. Throat without erythema, tonsillar hypertrophy or exudate. Uvula midline. Airway patent. NECK: Trachea midline. No JVD or lymphadenopathy. Supple, nontender, no meningeal signs. CARDIOVASCULAR: Regular rate and rhythm RESPIRATORY: Clear to auscultation. Breath sounds equal bilaterally. No wheezes, rales, or rhonchi. No cough. No increased respiratory effort. No accessory muscle use. GASTROINTESTINAL: Abdomen soft, non-tender, nondistended. No hepato- splenomegaly, or palpable masses. No guarding. EXTREMITIES: No clubbing, cyanosis, or edema. No joint tenderness, effusion, or edema noted. BACK: Nontender without deformity or crepitance. No flank tenderness. NEURO: AOx3. Stable gait. Interactive. No gross cranial nerve deficit. Using all extremities equally. SKIN: No rash or erythema on visible skin Initial Vital Signs Initial Vital Signs: Vital Signs Temperature 97.2 F L 05/07/19 12:59 Pulse Rate 73 05/07/19 12:59 Respiratory Rate 14 05/07/19 12:59 Blood Pressure 212/124 H 05/07/19 12:59 Pulse Oximetry 99 05/07/19 12:59 <Tarah Johnson DO - Last Filed: 05/08/19 08:01> Initial Vital Signs Initial Vital Signs: Vital Signs Temperature 97.2 F L 05/07/19 12:59 Pulse Rate 73 05/07/19 12:59 Respiratory Rate 14 05/07/19 12:59 Blood Pressure 212/124 H 05/07/19 12:59 Pulse Oximetry 99 05/07/19 12:59 Scores <ABDOUL Huerta - Last Filed: 05/07/19 20:30> GCS Bella coma scale eye opening: Spontaneous Bella coma scale verbal response: Orientated [place] coma scale motor response: Obey commands Palmetto coma scale total score: 15 Course <ABDOUL Huerta - Last Filed: 05/07/19 20:30> Orders Ordered: Discontinued Medications Aspirin (Aspirin Chew) 324 mg PO NOW ONE Stop: 05/07/19 13:27 Last Admin: 05/07/19 13:38 Dose: 324 mg Documented by: BEKA Diphenhydramine HCl (Benadryl) 25 mg IV NOW ONE Stop: 05/07/19 15:28 Last Admin: 05/07/19 16:05 Dose: 25 mg Documented by: BEKA Sodium Chloride (Normal Saline 0.9%) 1,000 mls @ 150 mls/hr IV CONT JORGE Last Infusion: 05/07/19 17:17 Dose: 0 mls/hr Documented by: Admin: 05/07/19 13:35 Dose: 150 mls/hr Documented by: BEKA Ketorolac Tromethamine (Toradol) 30 mg IV NOW ONE Stop: 05/07/19 14:29 Last Admin: 05/07/19 14:37 Dose: 30 mg Documented by: BEKA Metoclopramide HCl (Reglan) 10 mg IV NOW ONE Stop: 05/07/19 15:28 Last Admin: 05/07/19 16:05 Dose: 10 mg Documented by: BEKA Ondansetron HCl (Zofran) 4 mg IV NOW ONE Stop: 05/07/19 13:27 Last Admin: 05/07/19 13:35 Dose: 4 mg Documented by: BEKA Vital Signs Vital signs: Vital Signs - 8 hr 05/07/19 12:59 05/07/19 13:30 05/07/19 14:15 Temperature 97.2 F L Pulse Rate 73 77 64 Respiratory Rate 14 15 15 Blood Pressure 212/124 H Blood Pressure [Left Arm] 219/119 H 177/112 H Pulse Oximetry 99 98 98 05/07/19 14:45 05/07/19 15:10 05/07/19 17:15 Temperature Pulse Rate 64 63 61 Respiratory Rate 17 18 11 L Blood Pressure Blood Pressure [Left Arm] 172/112 H 165/100 H 139/95 H Pulse Oximetry 98 100 99 <Tarah Johnson, - Last Filed: 05/08/19 08:01> Orders Ordered: Discontinued Medications Aspirin (Aspirin Chew) 324 mg PO NOW ONE Stop: 05/07/19 13:27 Last Admin: 05/07/19 13:38 Dose: 324 mg Documented by: BEKA Diphenhydramine HCl (Benadryl) 25 mg IV NOW ONE Stop: 05/07/19 15:28 Last Admin: 05/07/19 16:05 Dose: 25 mg Documented by: BEKA Sodium Chloride (Normal Saline 0.9%) 1,000 mls @ 150 mls/hr IV CONT JORGE Last Infusion: 05/07/19 17:17 Dose: 0 mls/hr Documented by: Admin: 05/07/19 13:35 Dose: 150 mls/hr Documented by: BEKA Ketorolac Tromethamine (Toradol) 30 mg IV NOW ONE Stop: 05/07/19 14:29 Last Admin: 05/07/19 14:37 Dose: 30 mg Documented by: BEKA Metoclopramide HCl (Reglan) 10 mg IV NOW ONE Stop: 05/07/19 15:28 Last Admin: 05/07/19 16:05 Dose: 10 mg Documented by: BEKA Ondansetron HCl (Zofran) 4 mg IV NOW ONE Stop: 05/07/19 13:27 Last Admin: 05/07/19 13:35 Dose: 4 mg Documented by: BEKA Vital Signs Vital signs: Vital Signs - 8 hr 05/07/19 12:59 05/07/19 13:30 05/07/19 14:15 Temperature 97.2 F L Pulse Rate 73 77 64 Respiratory Rate 14 15 15 Blood Pressure 212/124 H Blood Pressure [Left Arm] 219/119 H 177/112 H Pulse Oximetry 99 98 98 05/07/19 14:45 05/07/19 15:10 05/07/19 17:15 Temperature Pulse Rate 64 63 61 Respiratory Rate 17 18 11 L Blood Pressure Blood Pressure [Left Arm] 172/112 H 165/100 H 139/95 H Pulse Oximetry 98 100 99 Medical Decision Making <AHMET HuertaP-BC - Last Filed: 05/07/19 20:30> Lab Data Result diagrams: 05/07/19 13:15 05/07/19 13:15 Labs: Lab Results 05/07/19 05/07/19 05/07/19 Range/Units 13:15 13:15 13:15 WBC 5.1 (4.5-11.0) X10^3/uL RBC 4.60 (4.0-5.2) X10^6/uL Hgb 15.2 (12.0-16.0) g/dL Hct 42.9 (36-46) % MCV 93.4 (80-100) fL MCH 33.1 (26-34) PG MCHC 35.4 (30-36) % RDW 14.3 (11.6-14.8) % Plt Count 299 (150-400) X10^3/uL Neut % (Auto) 61.7 (50-75) % Lymph % (Auto) 26.1 (25-40) % Lyman % (Auto) 8.4 (3-14) % Eos % (Auto) 2.9 (2-4) % Baso % (Auto) 0.9 (0-2) % Neut # (Auto) 3200 (0938-9073) /uL Lymph # (Auto) 1300 (6065-9879) /uL Lyman # (Auto) 400 (0-900) /uL Eos # (Auto) 100 (0-450) /uL Baso # (Auto) 0 (0-100) /uL Sodium 132 L (137-145) mmol/L Potassium 4.0 (3.4-5.1) mmol/L Chloride 95 L (98-107) mmol/L Carbon Dioxide 26 (22-32) mmol/L BUN 10 (7-17) mg/dL Creatinine 0.70 (0.52-1.04) mg/dL Estimated GFR > 60.0 (>60) mL/min BUN/Creatinine Ratio 14.3 (6-22) Glucose 98 (70-100) mg/dL Calcium 10.5 H (8.4-10.2) mg/dL Magnesium 2.0 (1.6-2.3) mg/dL Total Bilirubin 0.9 (0.2-1.3) mg/dL AST 30 (14-36) IU/L ALT 19 (<35) IU/L Alkaline Phosphatase 80 (38-126) U/L Total Creatine Kinase 29 L (30-135) U/L CK-MB (CK-2) TNP CK-MB (CK-2) Rel Index TNP Troponin I < 0.012 (0.01-0.034) ng/mL B-Natriuretic Peptide (<100) Total Protein 8.3 H (6.3-8.2) g/dL Albumin 4.9 (3.5-5.0) g/dL Globulin 3.4 (1.7-4.1) g/dL Albumin/Globulin Ratio 1.4 (1.0-2.8) 05/07/19 05/07/19 Range/Units 13:31 16:28 WBC (4.5-11.0) X10^3/uL RBC (4.0-5.2) X10^6/uL Hgb (12.0-16.0) g/dL Hct (36-46) % MCV (80-100) fL MCH (26-34) PG MCHC (30-36) % RDW (11.6-14.8) % Plt Count (150-400) X10^3/uL Neut % (Auto) (50-75) % Lymph % (Auto) (25-40) % Lyman % (Auto) (3-14) % Eos % (Auto) (2-4) % Baso % (Auto) (0-2) % Neut # (Auto) (0624-1389) /uL Lymph # (Auto) (5891-9209) /uL Lyman # (Auto) (0-900) /uL Eos # (Auto) (0-450) /uL Baso # (Auto) (0-100) /uL Sodium (137-145) mmol/L Potassium (3.4-5.1) mmol/L Chloride (98-107) mmol/L Carbon Dioxide (22-32) mmol/L BUN (7-17) mg/dL Creatinine (0.52-1.04) mg/dL Estimated GFR (>60) mL/min BUN/Creatinine Ratio (6-22) Glucose (70-100) mg/dL Calcium (8.4-10.2) mg/dL Magnesium (1.6-2.3) mg/dL Total Bilirubin (0.2-1.3) mg/dL AST (14-36) IU/L ALT (<35) IU/L Alkaline Phosphatase (38-126) U/L Total Creatine Kinase 29 L (30-135) U/L CK-MB (CK-2) TNP CK-MB (CK-2) Rel Index TNP Troponin I 0.018 (0.01-0.034) ng/mL B-Natriuretic Peptide < 100 (<100) Total Protein (6.3-8.2) g/dL Albumin (3.5-5.0) g/dL Globulin (1.7-4.1) g/dL Albumin/Globulin Ratio (1.0-2.8) Urine Dip Bedside Urine Glucose Negative Bedside Urine Bilirubin - Negative Bedside Urine Ketone - Negative Urine Specific Gilbert 1.010 Bedside Urine Occult Blood - Negative Bedside Urine pH 8.0 Bedside Urine Protein - Negative Bedside Urine Urobilinogen - Negative Bedside Urine Nitrite - Negative Bedside Urine Leukocytes - Negative Esterase Point of care testing: Urine Dip Bedside Urine Glucose Negative Bedside Urine Bilirubin - Negative Bedside Urine Ketone - Negative Urine Specific Gilbert 1.010 Bedside Urine Occult Blood - Negative Bedside Urine pH 8.0 Bedside Urine Protein - Negative Bedside Urine Urobilinogen - Negative Bedside Urine Nitrite - Negative Bedside Urine Leukocytes - Negative Esterase Imaging Data CT scan - head: Radiologist's Impression: [facility] [place] [id number] Scan Report Signed Patient: Faustina Aragon AMR#: [id number] : 1960Acct:[id number] Age/Sex: 58 / FDate of Service: 05/07/19 Loc: ED Accession Number: [id number] Procedure: CT head/brain wo con Ordering Provider: Khushboo HoughP-BC PROCEDURE: CT HEAD/BRAIN WO CON INDICATIONS: bp 140/120, headache TECHNIQUE: Noncontrast 4.5 mm thick angled axial sections acquired from the foramen magnum to the vertex, with coronal and sagittal reformats. For radiation dose reduction, the following was used: automated exposure control, adjustment of mA and/or kV according to patient size. COMPARISON: [facility], CT, CT HEAD/BRAIN WO CON, 04/11/2018, 14:20. FINDINGS: Image quality: Diagnostic. CSF spaces: Basal cisterns are patent. No extra-axial fluid collections. Ventricles are normal in size and shape. Brain: No midline shift. No intracranial masses or hemorrhage. Curtis-white matter interface is normal. Skull and face: Calvarium and visualized facial bones are intact, without suspicious lesions. Sinuses: A small amount of fluid appears to be present within the dependent aspect of the superior right maxillary sinus. Bony wall thickening may be present. There may be fluid within the left mastoid air cells. Otherwise, the imaged paranasal sinuses and right mastoid air cells are clear. IMPRESSION: 1. No acute intracranial hemorrhage. 2. 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 Dictated by: Cristi Tillman M.D. on 05/07/2019 at 13:03 Approved by: Cristi Tillman M.D. on 05/07/2019 at 13:05 Chest x-ray: Radiologist's Impression: [address] [place] [id number] XRay Report Signed Patient: Faustina Aragon AMR#: [id number] : 1960Acct:[id number] Age/Sex: 58 / FDate of Service: 05/07/19 Loc: ED Accession Number: [id number] Procedure: XR chest 1V Ordering Provider: Khushboo HoughP-BC PROCEDURE: XR CHEST 1V INDICATIONS: CHEST PAIN TECHNIQUE: One view of the chest was acquired. COMPARISON: [facility], CR, XR CHEST 1V, 04/11/2018, 14:33. FINDINGS: Surgical changes and devices: Left-sided cardiac pacer/defibrillator is present. Lungs and pleura: Lungs are clear. No pleural effusions or pneumothorax. Mediastinum: Mediastinal contours appear normal. Heart size is normal. Bones and chest wall: No suspicious bony lesions. Overlying soft tissues appear unremarkable. IMPRESSION: Stable chest. No acute cardiopulmonary process is evident. Dictated by: Cristi Tillman M.D. on 05/07/2019 at 13:09 Approved by: Cristi Tillman M.D. on 05/07/2019 at 13:10 ECG Data Attestation: I personally reviewed and interpreted this ECG as follows: Interpretation: Sinus rhythm. Ventricular 87. No ectopy noted. P.r. interval 186. QRS duration 98. Viewed by Dr. Johnson MDM Narrative Medical decision making narrative: The patient is a 58-year-old female who presents hypertensive with a headache. Her blood pressures above 220/120. Given her significant hypertension and headache, CT was taken to rule out any acute bleeds. Basic cardiac labs were done as the patient was concerned about chest tightness. Her blood pressure resolved while in the emergency department without direct blood pressure intervention and she felt much better. We elected to treat her headache with migraine cocktail, and she felt much better and ready to go home. Given her significant comorbidities, we did elect to obtain a 3 hour troponin which also resulted negative. Discussed at length patient course and plan with Dr. Johnson given patient complexity and presentation. BNP is negative as well. The patient felt much better and her blood pressure reduced to 139/95. I offered to try to arrange for observation admission, the patient declined. She would much rather go home. I also offered to contact her PCP or regulation supervisor and the patient declines stating she wanted to go home and eat steak. I encouraged a light diet. Discussed at length strict return precautions of chest pain, shortness of breath, concern of heart attack or stroke. Encourage PCP follow-up in the next few days. Patient has no questions or concerns upon discharge and states understanding return precautions as well as follow-up care. <Tarah Johnson, DO - Last Filed: 05/08/19 08:01> Lab Data Lab results reviewed: Yes I reviewed the patient's lab results. Labs: Lab Results 05/07/19 05/07/19 05/07/19 Range/Units 13:15 13:15 13:15 WBC 5.1 (4.5-11.0) X10^3/uL RBC 4.60 (4.0-5.2) X10^6/uL Hgb 15.2 (12.0-16.0) g/dL Hct 42.9 (36-46) % MCV 93.4 (80-100) fL MCH 33.1 (26-34) PG MCHC 35.4 (30-36) % RDW 14.3 (11.6-14.8) % Plt Count 299 (150-400) X10^3/uL Neut % (Auto) 61.7 (50-75) % Lymph % (Auto) 26.1 (25-40) % Lyman % (Auto) 8.4 (3-14) % Eos % (Auto) 2.9 (2-4) % Baso % (Auto) 0.9 (0-2) % Neut # (Auto) 3200 (2594-7856) /uL Lymph # (Auto) 1300 (4569-3148) /uL Lyman # (Auto) 400 (0-900) /uL Eos # (Auto) 100 (0-450) /uL Baso # (Auto) 0 (0-100) /uL Sodium 132 L (137-145) mmol/L Potassium 4.0 (3.4-5.1) mmol/L Chloride 95 L (98-107) mmol/L Carbon Dioxide 26 (22-32) mmol/L BUN 10 (7-17) mg/dL Creatinine 0.70 (0.52-1.04) mg/dL Estimated GFR > 60.0 (>60) mL/min BUN/Creatinine Ratio 14.3 (6-22) Glucose 98 (70-100) mg/dL Calcium 10.5 H (8.4-10.2) mg/dL Magnesium 2.0 (1.6-2.3) mg/dL Total Bilirubin 0.9 (0.2-1.3) mg/dL AST 30 (14-36) IU/L ALT 19 (<35) IU/L Alkaline Phosphatase 80 (38-126) U/L Total Creatine Kinase 29 L (30-135) U/L CK-MB (CK-2) TNP CK-MB (CK-2) Rel Index TNP Troponin I < 0.012 (0.01-0.034) ng/mL B-Natriuretic Peptide (<100) Total Protein 8.3 H (6.3-8.2) g/dL Albumin 4.9 (3.5-5.0) g/dL Globulin 3.4 (1.7-4.1) g/dL Albumin/Globulin Ratio 1.4 (1.0-2.8) 05/07/19 05/07/19 Range/Units 13:31 16:28 WBC (4.5-11.0) X10^3/uL RBC (4.0-5.2) X10^6/uL Hgb (12.0-16.0) g/dL Hct (36-46) % MCV (80-100) fL MCH (26-34) PG MCHC (30-36) % RDW (11.6-14.8) % Plt Count (150-400) X10^3/uL Neut % (Auto) (50-75) % Lymph % (Auto) (25-40) % Lyman % (Auto) (3-14) % Eos % (Auto) (2-4) % Baso % (Auto) (0-2) % Neut # (Auto) (8320-2673) /uL Lymph # (Auto) (2159-4360) /uL Lyman # (Auto) (0-900) /uL Eos # (Auto) (0-450) /uL Baso # (Auto) (0-100) /uL Sodium (137-145) mmol/L Potassium (3.4-5.1) mmol/L Chloride (98-107) mmol/L Carbon Dioxide (22-32) mmol/L BUN (7-17) mg/dL Creatinine (0.52-1.04) mg/dL Estimated GFR (>60) mL/min BUN/Creatinine Ratio (6-22) Glucose (70-100) mg/dL Calcium (8.4-10.2) mg/dL Magnesium (1.6-2.3) mg/dL Total Bilirubin (0.2-1.3) mg/dL AST (14-36) IU/L ALT (<35) IU/L Alkaline Phosphatase (38-126) U/L Total Creatine Kinase 29 L (30-135) U/L CK-MB (CK-2) TNP CK-MB (CK-2) Rel Index TNP Troponin I 0.018 (0.01-0.034) ng/mL B-Natriuretic Peptide < 100 (<100) Total Protein (6.3-8.2) g/dL Albumin (3.5-5.0) g/dL Globulin (1.7-4.1) g/dL Albumin/Globulin Ratio (1.0-2.8) Urine Dip Bedside Urine Glucose Negative Bedside Urine Bilirubin - Negative Bedside Urine Ketone - Negative Urine Specific Gilbert 1.010 Bedside Urine Occult Blood - Negative Bedside Urine pH 8.0 Bedside Urine Protein - Negative Bedside Urine Urobilinogen - Negative Bedside Urine Nitrite - Negative Bedside Urine Leukocytes - Negative Esterase Point of care testing: Urine Dip Bedside Urine Glucose Negative Bedside Urine Bilirubin - Negative Bedside Urine Ketone - Negative Urine Specific Gilbert 1.010 Bedside Urine Occult Blood - Negative Bedside Urine pH 8.0 Bedside Urine Protein - Negative Bedside Urine Urobilinogen - Negative Bedside Urine Nitrite - Negative Bedside Urine Leukocytes - Negative Esterase ECG Data Attestation: I personally reviewed and interpreted this ECG as follows: Prior ECG tracings: available for review Interpretation: Normal sinus rhythm rate 87 p.r. interval 186 QRS [address] elevation depression or T-wave inversion similar to previous EKG Discharge Plan Departure Patient Disposition: Home Clinical Impression: Hypertension Qualifiers: Hypertension type: unspecified Qualified Code(s): I10 - Essential (primary) hypertension Headache Qualifiers: Headache type: unspecified Headache chronicity pattern: acute headache Intractability: not intractable Qualified Code(s): R51 - Headache Discharge Date/Time: 05/07/19 17:26 Instructions: CT Scan of the Head, DI for High Blood Pressure, DI for Headache Activity Restrictions/Additional Instructions: Thank you for trusting us with your care today Today you had blood work, head CT, chest x-ray and everything came back within normal limits. Your blood pressure came down as we treated your headache. Please follow-up with primary care provider as well as your regulation supervisor. Please come back to the emergency department for any acute concerns such as chest pain, shortness of breath, concern of heart attack or stroke Prescriptions: No Action ibuprofen 200 MG tablet 200 mg PO PRN PRN (Reason: Pain) Qty: 0 RF: 0 amiodarone 200 MG tablet 200 mg PO DAILY Qty: 0 RF: 0 nitrofurantoin monohyd/m-cryst [Macrobid] 100 mg capsule 1 cap PO .COMPLEX Qty: 30 RF: 1 hydrocodone-acetaminophen 7.5-325 mg tablet 1 tab PO Q4-6H PRN (Reason: painful procedure) Qty: 30 RF: 0 ondansetron 8 mg tablet,disintegrating 8 mg PO Q8H PRN (Reason: nausea and vomiting) Qty: 10 RF: 0 aspirin 81 mg Tablet,Delayed Release (Dr/Ec) 81 mg PO DAILY Qty: 30 RF: 0 metoprolol succinate 50 mg tablet extended release 24 hr 75 mg PO BID RF: 0 alprazolam 0.5 mg Tablet 0.5 mg PO TID PRN (Reason: Anxiety) RF: 0 docusate sodium [Colace] 100 mg capsule 100 mg PO BID Qty: 30 RF: 0 oxycodone 5 mg tablet 5 mg PO Q6H PRN (Reason: pain) Qty: 60 RF: 0 acetaminophen [Tylenol] 325 mg capsule 650 mg PO QID PRN (Reason: pain) Qty: 60 RF: 0 ondansetron 4 mg tablet,disintegrating 4 mg PO Q6H PRN (Reason: nausea and vomiting) Qty: 30 RF: 0 hydrocodone-acetaminophen [Vicodin ES] 7.5-300 mg tablet 1 tab PO Q4-6H PRN (Reason: pain) Qty: 30 RF: 0 Referrals: [facility] [Outside]
== END 2019-05-07 17:26 | disposition home or self-care (01) ==
PROVIDERS: Emergency Provider Nurse Practitioner Family
DX: I10 Essential (primary) hypertension (principal); R51 Headache; R07.9 Chest pain, unspecified
CPT/HCPCS: 36415; 70450; 71045; 80053; 81003; 82550; 83735; 83880; 84484; 85025; 93005; 93010; 96361; 96374; 96375; 99285; J1200; J1885; J2405; J2765

== ENCOUNTER → 2019-06-14 14:50 | Outpatient (CLI) | payer MEDICARE, SELFPAY ==
[2019-04-15 10:04] VITALS: BMI 21.7
[2019-06-14 15:24] LABS: Appearance Urine UA SL CLOUDY; Bilirubin Urine UA NEGATIVE (NEGATIVE); Color Urine UA YELLOW; Glucose Urine UA NEGATIVE (Negative); Ketones Urine UA NEGATIVE (NEGATIVE); Leukocyte Esterase Urine UA TRACE (NEGATIVE); Nitrite Urine UA NEGATIVE (Negative); Occult Blood Urine UA NEGATIVE (Negative); Protein Urine UA NEGATIVE (Negative); Urobilinogen Urine UA 0.2 E.U./dL (0.2)
[2019-06-14 15:34] LABS: Bacteria Urine Few (2-10); Culture Indicated Urine Specimen Cultured; RBC Urine 0-1/HPF (0-5/HPF); Squamous Epithelial Cell Urine 1-5 /HPF (0-5/HPF); Transitional Epi Cells Urine 1-5/HPF (0-5/HPF); WBC Urine 5-10/HPF (0-5/HPF)
[2019-06-14 15:39] LABS: Alanine Aminotransferase 17 IU/L (<35); Albumin 4.3 g/dL (3.5-5.0); Albumin Globulin Ratio 1.5 (1.0-2.8); Alkaline Phosphatase 64 U/L (38-126); Aspartate Aminotransferase 22 IU/L (14-36); BUN Creatinine Ratio 17.1 (6-22); Bilirubin Total 0.4 mg/dL (0.2-1.3); Blood Urea Nitrogen 12 mg/dL (7-17); Calcium 9.3 mg/dL (8.4-10.2); Carbon Dioxide 29 mmol/L (22-32); Chloride 99 mmol/L (98-107); Estimated Glomerular Filt Rate > 60.0 mL/min (>60); Globulin 2.9 g/dL (1.7-4.1); Glucose 119 mg/dL (70-100); HEMOLYSIS < 15 (0-50); Potassium 4.1 mmol/L (3.4-5.1); Sodium 135 mmol/L (137-145); Total Protein 7.2 g/dL (6.3-8.2)
[2019-06-14 16:10] LABS: Thyroid Stimulating Hormone 3.04 uIU/mL (0.47-4.68)
== END ==
DX: Z79.899 Other long term (current) drug therapy (principal); R39.9 Unspecified symptoms and signs involving the genitourinary system
CPT/HCPCS: 36415; 80053; 81001; 84443; 87077; 87086; 87186

== ENCOUNTER → 2019-09-06 13:59 | Outpatient (CLI) | payer MEDICARE, SELFPAY ==
[2019-04-15 10:04] VITALS: BMI 21.7
[2019-09-06 14:03] LABS: RBC Urine None Seen (0-5/HPF)
[2019-09-06 14:42] LABS: Appearance Urine UA CLEAR; Bilirubin Urine UA NEGATIVE (NEGATIVE); Color Urine UA YELLOW; Glucose Urine UA NEGATIVE (Negative); Ketones Urine UA NEGATIVE (NEGATIVE); Leukocyte Esterase Urine UA 1+ (NEGATIVE); Nitrite Urine UA NEGATIVE (Negative); Occult Blood Urine UA NEGATIVE (Negative); Protein Urine UA NEGATIVE (Negative); Urobilinogen Urine UA 0.2 E.U./dL (0.2)
[2019-09-06 15:01] LABS: Bacteria Urine Few (2-10); Squamous Epithelial Cell Urine 1-5 /HPF (0-5/HPF); WBC Urine 1-5/HPF (0-5/HPF); pH Urine UA 6.5 (4.5-8.0)
[2019-09-06 15:02] LABS: Culture Indicated Urine Specimen Cultured
== END ==
DX: R39.9 Unspecified symptoms and signs involving the genitourinary system (principal)
CPT/HCPCS: 81001; 87086

== ENCOUNTER → 2020-03-05 14:59 | Outpatient (CLI) | payer MEDICARE, SELFPAY ==
[2019-04-15 10:04] VITALS: BMI 21.7
[2020-03-05 15:39] LABS: COVID19 -Nasal RAPID POSITIVE (Negative)
== END ==
PROVIDERS: Visit Provider Physician Assistant
DX: U07.1 COVID-19 (principal)
CPT/HCPCS: 87635

== ENCOUNTER → 2021-07-30 07:57 | Outpatient (CLI) | payer MEDICARE, SELFPAY ==
[2019-04-15 10:04] VITALS: BMI 21.7
[2021-07-30 10:14] LABS: Alanine Aminotransferase 18 IU/L (<35); Albumin 4.2 g/dL (3.5-5.0); Albumin Globulin Ratio 1.5 (1.0-2.8); Alkaline Phosphatase 57 U/L (38-126); Aspartate Aminotransferase 22 IU/L (14-36); BUN Creatinine Ratio 20.2 (6-22); Bilirubin Total 0.6 mg/dL (0.2-1.3); Blood Urea Nitrogen 17 mg/dL (7-17); Calcium 9.5 mg/dL (8.4-10.2); Carbon Dioxide 29 mmol/L (22-32); Chloride 104 mmol/L (98-107); Cholesterol 247 mg/dL (140-199); Estimated Glomerular Filt Rate > 60 mL/min (>60); Globulin 2.8 g/dL (1.7-4.1); Glucose 86 mg/dL (80-110); HDL Cholesterol 61 mg/dL (40-60); HEMOLYSIS < 15 (0-50); LDL Cholesterol Calculated 172 mg/dL (<100); Potassium 4.2 mmol/L (3.4-5.1); Sodium 139 mmol/L (137-145); Triglycerides 69 mg/dL (35-150)
[2021-07-30 10:37] LABS: Free T4, Direct Thyroxine 1.05 ng/dL (0.78-2.19)
[2021-07-30 10:51] LABS: Thyroid Stimulating Hormone 15.2 uIU/mL (0.47-4.68)
== END ==
PROVIDERS: Referring Provider Nurse Practitioner Acute Care; Visit Provider Nurse Practitioner Acute Care
DX: Z79.899 Other long term (current) drug therapy (principal)
CPT/HCPCS: 36415; 80053; 80061; 84439; 84443

== ENCOUNTER → 2021-09-30 10:28 | Outpatient (CLI) | payer MEDICARE, SELFPAY ==
[2019-04-15 10:04] VITALS: BMI 21.7
[2021-09-30 12:19] LABS: COVID19 -Nasal RAPID Negative (Negative)
== END ==
PROVIDERS: PCP Nurse Practitioner; Visit Provider Surgery
DX: Z20.822 Contact with and (suspected) exposure to COVID-19 (principal); Z01.812 Encounter for preprocedural laboratory examination
CPT/HCPCS: 87635; C9803

== ENCOUNTER 2021-10-01 11:02 | Day surgery (SDC) | payer MEDICARE, SELFPAY ==
[2019-04-15 10:04] VITALS: BMI 21.7
[2021-10-01 11:23] VITALS: BP 146/94; PULSE 66; RESP 16; TEMP 36.4; O2SAT 98; BMI 22.7
[2021-10-01] MEDS: LACTATED RINGERS 1,000 ML 200 ML IV (11:38)
--- NOTE | 2021-10-01 11:57 | PM.HP.1 ---
History of Present Illness History of Present Illness Date Patient Seen: 10/01/21 Time Patient Seen: 11:57 Chief complaint: Screening Colonoscopy Narrative: The patient presents for colorectal screening. Previous colonoscopy 10 years ago No personal or family history of colon cancer. On further history denies any recent gastrointestinal symptoms. No nausea, vomiting, abdominal pain, loss of appetite, unexplained weight loss, change in bowel habits, diarrhea, constipation, melena, hematochezia, or bright red blood per rectum. Patient History Medical History (Updated 09/01/21 @ 20:04 by Tia Vail) ADHD Alcohol abuse Allergies Arthritis Basal cell carcinoma Bronchitis Cardiac arrhythmia Carpal tunnel syndrome Chest pain syndrome Chronic back pain Chronic headaches Depression H/O hypertensive crisis Hearing loss Herniated disc Hypertension Hypothyroidism Idiopathic ventricular tachycardia Loss of smell Migraine PTSD (post-traumatic stress disorder) Recurrent sinusitis Skin cancer Spinal stenosis Tachyarrhythmia UTI (urinary tract infection) Surgical History (Updated 09/01/21 @ 20:04 by Tia Vail) Anesthesia H/O laparoscopy H/O: hysterectomy History of bilateral carpal tunnel release History of hysteroscopy History of implantable cardioverter-defibrillator (ICD) placement Hx of arthroscopy of right knee (07/04/15) Status post surgery (02/12/09) Status post surgery (09/02/10) Family & Social History Family History (Updated 09/01/21 @ 20:05 by Tia Vail) Grandfather Stroke Grandmother Dementia Social History: household members significant other Tobacco & Substance use: Smoking Status Never smoker alcohol intake current alcohol intake frequency holiday/special occasion Substance Use Type does not use Meds Home Medications and Allergies Home Medications Medication Instructions Recorded Confirmed Type aspirin 81 mg tablet,delayed 81 mg PO DAILY #30 tabs 04/12/18 03/05/20 Rx release alprazolam 0.5 mg tablet 0.5 mg PO TID PRN Anxiety 08/21/21 10/01/21 History amiodarone 200 mg tablet 100 mg PO DAILY #0 tabs 08/21/21 08/21/21 History metoprolol succinate 50 mg 75 mg PO DAILY #120 tabs 08/21/21 08/21/21 Rx tablet,extended release 24 hr sumatriptan succinate 25 mg tablet See Rx Instructions PO .COMPLEX #9 08/21/21 10/01/21 Rx tabs Allergies Allergy/AdvReac Type Severity Reaction Status Date / Time duloxetine [DULOXETINE] Allergy Mild RASH, Verified 10/01/21 11:13 INCREASED HEART RATE. Exam Vital Signs (past 8 hours): - 10/01/21 11:23 Temperature 97.6 F Pulse Rate 66 Respiratory Rate 16 Blood Pressure 146/94 H Pulse Oximetry 98 Oxygen Delivery Method Room Air Oxygen Delivery Method Room Air Narrative Exam Narrative: General adult woman alert oriented no acute distress Chest nonlabored respiration Extremities warm well perfused Assessment & Plan Assessment & Plan narrative: The patient requires colorectal screening and colonoscopy is recommended. Technical details were discussed. Risks, benefits, alternatives explained. Risks including but not limited to myocardial infarction, aspiration, bleeding, pain, missed lesion, incomplete examination, need for further radiographic studies, colonic perforation, and need for major abdominal surgery were discussed. All questions were answered to their satisfaction, and they are in agreement with this plan. Time Spent With Patient Critical Care time: I spent a total of [] minutes of critical care time on this patient's care today; this time is exclusive of procedural time.
[2021-10-01] MEDS: MIDAZOLAM 5 MG/5 ML VIAL IV (12:03)
[2021-10-01] MEDS: fentaNYL 250 MCG/5 ML INJ 125 MCG IV (12:03)
--- NOTE | 2021-10-01 12:20 | P.OP.COLON_ITS ---
Operative Date/Time/Diagnoses Date of procedure: 10/01/21 Time of procedure: 12:20 Pre-op diagnosis: SCREENING Post-op diagnosis: same Procedure & Clinicians Study performed: Colonoscopy Same procedure as scheduled: Yes Indications: Screening Surgeon: Marcelino Sandoval Procedure Notes Procedure in detail: Medications: Conscious sedation using 5mg IV midazolam and 125mcg IV of fentanyl The history and physical was performed/updated and the patient is ASA class is 2. The procedure was discussed in detail with the patient. Potential risks complications including infection, bleeding, missed diagnosis, perforation, need for surgery, and were explained. Their questions were answered and informed consent was obtained. Patient was brought to the procedure room and placed standard monitoring equipment. The patient's vital signs were monitored continuously throughout the entire procedure. Prior to starting time-out was performed. The patient was placed in the left lateral recumbent position. Procedural sedation was adminis tered. Examination began with a thorough inspection of the perianal area there was no evidence of fissures, fistulae, external hemorrhoids or cutaneous malignancy. The colonoscopy scope was then placed into the anal canal and was advanced to the cecum, which was identified by the ileocecal valve, the appendiceal orifice and the confluence of the taenia. The scope was then slowly withdrawn examining colon thoroughly in all directions, irrigating it of any residual stool. FINDINGS 1. Normal healthy colon. No masses or polyps 2. Diverticulosis mild The patient tolerated the procedure well. They will be discharged once criteria are met. The prep was of good/excellent quality. The withdrawl time was 6 minutes. The sedation time was 16 minutes. Specimen(s): none sent Complications: none Impression: Normal colonoscopy Post-procedure Recommendations: Colonoscopy in 10 years and High fiber diet Disposition: same day surgery
[2021-10-01 12:23] VITALS: BP 102/63; PULSE 61; RESP 12; TEMP 36.3; O2SAT 98
[2021-10-01 12:28] VITALS: BP 97/61; PULSE 61; RESP 14; TEMP 36.3; O2SAT 98
[2021-10-01 12:33] VITALS: BP 104/68; PULSE 66; RESP 16; TEMP 37; O2SAT 100
[2021-10-01 12:38] VITALS: BP 109/71; PULSE 63; RESP 17; TEMP 36.6; O2SAT 99
[2021-10-01 13:15] VITALS: BP 114/83; PULSE 60; RESP 16; TEMP 36.1; O2SAT 100
== END 2021-10-01 13:19 | disposition home or self-care (01) ==
PROVIDERS: PCP Nurse Practitioner; Referring Provider Surgery; Visit Provider Surgery
PROC: 0DJD8ZZ Inspection of Lower Intestinal Tract, Via Natural or Artificial Opening Endoscopic (ICD-10-PCS; CPT 45378; principal; 2021-10-01 12:15)
DX: Z12.11 Encounter for screening for malignant neoplasm of colon (principal); K57.30 Diverticulosis of large intestine without perforation or abscess without bleeding; I10 Essential (primary) hypertension; F43.10 Post-traumatic stress disorder, unspecified
CPT/HCPCS: G0121; 99152; J2250; J3010

== ENCOUNTER → 2021-11-20 12:01 | Outpatient (CLI) | payer MEDICARE, SELFPAY ==
[2019-04-15 10:04] VITALS: BMI 21.7
[2021-11-20 15:33] LABS: Free T3, Triiodothyronine Free 3.03 pg/mL (2.77-5.27); Free T4, Direct Thyroxine 1.05 ng/dL (0.78-2.19)
[2021-11-20 15:47] LABS: Thyroid Stimulating Hormone 3.58 uIU/mL (0.47-4.68)
[2021-11-20 17:30] LABS: Creatinine Urine Random 28.2 mg/dL
[2021-11-20 17:39] LABS: Microalbumin Urine Random < 0.6 mg/dL (0-1.6)
[2021-11-21 05:12] LABS: Thyroid Peroxidase Antibodies <8 IU/mL (0-34)
[2021-11-21 21:48] LABS: Hep C Virus Ab w/Reflex Quant NEGATIVE s/c (NEGATIVE)
== END ==
PROVIDERS: PCP Nurse Practitioner; Referring Provider Nurse Practitioner; Visit Provider Nurse Practitioner
DX: E06.3 Autoimmune thyroiditis (principal); R79.89 Other specified abnormal findings of blood chemistry; Z11.59 Encounter for screening for other viral diseases; I10 Essential (primary) hypertension
CPT/HCPCS: 36415; 82043; 82570; 84439; 84443; 84481; 86376; 86803

== ENCOUNTER → 2021-11-28 08:34 | Outpatient (CLI) | payer MEDICARE, SELFPAY ==
[2019-04-15 10:04] VITALS: BMI 21.7
[2021-11-28 09:41] LABS: COVID19 -Nasal RAPID Negative (Negative)
== END ==
PROVIDERS: PCP Nurse Practitioner; Referring Provider Internal Medicine; Visit Provider Internal Medicine
DX: Z20.822 Contact with and (suspected) exposure to COVID-19 (principal)
CPT/HCPCS: 87635; C9803

== ENCOUNTER → 2022-04-29 14:53 | Outpatient (CLI) | payer MEDICARE, SELFPAY ==
[2019-04-15 10:04] VITALS: BMI 21.7
[2022-04-29 16:58] LABS: Appearance Urine UA CLEAR; Bilirubin Urine UA NEGATIVE (NEGATIVE); Color Urine UA YELLOW; Glucose Urine UA NEGATIVE (Negative); Ketones Urine UA NEGATIVE (NEGATIVE); Leukocyte Esterase Urine UA TRACE (NEGATIVE); Nitrite Urine UA NEGATIVE (Negative); Occult Blood Urine UA NEGATIVE (Negative); Protein Urine UA NEGATIVE (Negative); Specific Gravity Urine UA <=1.005 (1.000-1.035); Urobilinogen Urine UA 0.2 E.U./dL (0.2)
[2022-04-29 17:00] LABS: pH Urine UA 6.5 (4.5-8.0)
[2022-04-29 17:15] LABS: Bacteria Urine None Seen; Culture Indicated Urine Cult Not Indicated; RBC Urine None Seen (0-5/HPF); Squamous Epithelial Cell Urine 0-1 /HPF (0-5/HPF); WBC Urine 0-1/HPF (0-5/HPF)
== END ==
PROVIDERS: PCP Nurse Practitioner; Referring Provider Nurse Practitioner; Visit Provider Nurse Practitioner
DX: R30.0 Dysuria (principal)
CPT/HCPCS: 81001

== ENCOUNTER → 2022-04-30 11:26 | Outpatient (CLI) | payer MEDICARE, SELFPAY ==
[2019-04-15 10:04] VITALS: BMI 21.7
== END ==
PROVIDERS: PCP Nurse Practitioner; Visit Provider Family Medicine
DX: R30.0 Dysuria (principal)
CPT/HCPCS: 87077; 87086; 87186

== ENCOUNTER 2022-05-07 13:14 | Emergency (ER) | payer MEDICARE, SELFPAY ==
[2019-04-15 10:04] VITALS: BMI 21.7
[2022-05-07 13:18] VITALS: BP 212/124; PULSE 62; RESP 15; TEMP 35.6; O2SAT 100; BMI 21.9
--- NOTE | 2022-05-07 13:23 | DI.RAD.S_ITS ---
PROCEDURE: XR CHEST 1V INDICATIONS: chest pain TECHNIQUE: One view of the chest was acquired. COMPARISON: [facility], , XR CHEST 1V, 05/07/2019, 13:37. FINDINGS: Surgical changes and devices: Left chest wall pacemaker leads are in the region of right atrium and right ventricle. Lungs and pleura: Lungs are clear. No pleural effusions or pneumothorax. Mediastinum: Mediastinal contours appear normal. Heart size is normal. Bones and chest wall: No suspicious bony lesions. Overlying soft tissues appear unremarkable. IMPRESSION: No acute cardiopulmonary pathology. Dictated by: Navarro Cintron M.D. on 05/07/2022 at 14:13 Approved by: Navarro Cintron M.D. on 05/07/2022 at 14:19
[2022-05-07 13:45] LABS: Add Manual Diff / Slide Review NO; Basophils Absolute Auto 100 /uL (0-100); Eosinophils Absolute Auto 300 /uL (0-450); Eosinophils Percent Auto 4.3 % (2-4); Hematocrit 41.9 % (36-46); Hemoglobin 14.4 g/dL (12.0-16.0); Lymphocytes Absolute Auto 2000 /uL (1100-4500); Lymphocytes Percent Auto 31.8 % (25-40); Mean Corpuscular HGB Conc 34.4 % (30-36); Mean Corpuscular Hemoglobin 31.1 PG (26-34); Mean Corpuscular Volume 90.2 fL (80-100); Monocytes Absolute Auto 500 /uL (0-900); Monocytes Percent Auto 8.5 % (3-14); Neutrophils Absolute Auto 3400 /uL (1500-7000); Neutrophils Percent Auto 54.4 % (50-75); Platelet Count 275 X10^3/uL (150-400); Red Blood Cell Count 4.64 X10^6/uL (4.0-5.2); Red Cell Distribution Width 13.2 % (11.6-14.8); White Blood Cell Count 6.2 X10^3/uL (4.5-11.0)
[2022-05-07 13:52] LABS: INR 1.1 (0.9-1.3); Prothrombin Time 12.1 SECONDS (10.1-12.7)
[2022-05-07 13:55] LABS: PTT Partial Thromboplastin Tim 32 SECONDS (26-36)
[2022-05-07 13:57] LABS: Alanine Aminotransferase 17 IU/L (<35); Albumin 4.5 g/dL (3.5-5.0); Albumin Globulin Ratio 1.4 (1.0-2.8); Alkaline Phosphatase 64 U/L (38-126); Aspartate Aminotransferase 22 IU/L (14-36); BUN Creatinine Ratio 20.6 (6-22); Bilirubin Total 0.8 mg/dL (0.2-1.3); Blood Urea Nitrogen 14 mg/dL (7-17); Calcium 9.2 mg/dL (8.4-10.2); Carbon Dioxide 27 mmol/L (22-32); Chloride 99 mmol/L (98-107); Creatine Kinase 32 U/L (30-135); Estimated Glomerular Filt Rate > 60 mL/min (>60); Globulin 3.3 g/dL (1.7-4.1); Glucose 102 mg/dL (80-110); HEMOLYSIS < 15 (0-50); Lipase 102 U/L (23-300); Potassium 3.5 mmol/L (3.4-5.1); Sodium 134 mmol/L (137-145); Total Protein 7.8 g/dL (6.3-8.2)
[2022-05-07 14:07] LABS: Troponin I < 0.012 ng/mL (0.01-0.034)
--- NOTE | 2022-05-07 14:18 | DI.CT.S_ITS ---
PROCEDURE: CT HEAD/BRAIN WO CON INDICATIONS: Headache TECHNIQUE: Noncontrast 4.5 mm thick angled axial sections acquired from the foramen magnum to the vertex, with coronal and sagittal reformats. For radiation dose reduction, the following was used: automated exposure control, adjustment of mA and/or kV according to patient size. COMPARISON: [facility], CT, CT HEAD/BRAIN WO CON, 05/07/2019, 13:46. FINDINGS: Image quality: Good CSF spaces: Basal cisterns are patent. Lateral ventricles are symmetric. Xanthogranulomas of the choroid plexuses. Volume: Generally maintained. Brain: No intracranial hemorrhage. Curtis-white differentiation is grossly maintained. Craniofacial structures: Partial opacification and hypoplasia of the left mastoid air cells as before. IMPRESSION: No acute intracranial abnormality. Partial opacification and hypoplasia of the left mastoid air cells, as before. Dictated by: Rocky Eid M.D. on 05/07/2022 at 14:44 Approved by: Rocky Eid M.D. on 05/07/2022 at 14:47
--- NOTE | 2022-05-07 14:20 | ED.GENADULT ---
HPI - General Adult General Chief complaint: Hypertension Stated complaint: Hypertension 184/115, Headache Time Seen by Provider: 05/07/22 14:06 Source: patient Mode of arrival: Ambulatory History of Present Illness HPI narrative: Patient here for high blood pressure and headache. Onset this morning when she awoke with mild headache that is diffuse in pressure. Through the course of day and has elevated. She went to her dental appointment but blood pressure was too high for any procedures and was sent here for re-evaluation. Denies any nausea or vomiting vision changes no chest pain no palpitations no numbness tingling or weakness no syncope. Patient was seen here exactly 3 years ago May 07, 2019. For the same complaint. Headache and high blood pressure. Patient denies any changes in her health or routine or medications or diet. No new stressors in life. Pain is diffuse and retro-orbital. Pressure 8/10. Fast exam is negative. Related Data Home Medications Medication Instructions Recorded Confirmed amiodarone 200 mg tablet 100 mg PO DAILY #0 tabs 11/20/21 05/21/22 Previous Rx's Medication Instructions Recorded aspirin 81 mg tablet,delayed 81 mg PO DAILY #30 tabs 04/12/18 release metoprolol succinate 50 mg 75 mg PO DAILY #120 tabs 08/21/21 tablet,extended release 24 hr sumatriptan succinate 50 mg tablet See Rx Instructions PO .COMPLEX 11/20/21 #20 tabs estradiol 0.01% (0.1 mg/gram) 0.5 appful vaginal DAILY vaginal 04/30/22 vaginal cream (Estrace) dryness #42.5 grams alprazolam 0.5 mg tablet 0.5 mg PO TID PRN Anxiety #10 tabs 05/21/22 lisinopril 5 mg tablet 5 mg PO DAILY #90 tabs 05/21/22 Allergies Allergy/AdvReac Type Severity Reaction Status Date / Time duloxetine [DULOXETINE] Allergy Mild RASH, Verified 05/21/22 10:44 INCREASED HEART RATE. Review of Systems Review of Systems Narrative: GENERAL: negative chills, fatigue, malaise, fever, sweats. HEENT: negative sinus pain, ear pain, sore throat RESPIRATORY: negative dyspnea, cough CARDIOVASCULAR: negative chest pain, palpitations GASTROINTESTINAL: negative nausea, vomiting, abdominal pain : negative dysuria, frequency, hematuria MUSCULOSKELETAL: negative muscle or bony pain SKIN: negative rash, skin lesions NEUROLOGIC: negative weakness, numbness, positive headache/dizziness ROS Unobtainable: All systems reviewed & are unremarkable except as noted in HPI and below Patient History Medical History ADHD Alcohol abuse Allergies Arthritis Basal cell carcinoma Bronchitis Cardiac arrhythmia Carpal tunnel syndrome Chest pain syndrome Chronic back pain Chronic headaches Depression Elevated TSH H/O hypertensive crisis Hearing loss Herniated disc Hypertension Hypertension Idiopathic ventricular tachycardia Loss of smell Migraine PTSD (post-traumatic stress disorder) Recurrent sinusitis Skin cancer Spinal stenosis Tachyarrhythmia UTI (urinary tract infection) Surgical History Anesthesia H/O laparoscopy H/O: hysterectomy History of bilateral carpal tunnel release History of hysteroscopy History of implantable cardioverter-defibrillator (ICD) placement Hx of arthroscopy of right knee (07/04/15) Status post surgery (02/12/09) Status post surgery (09/02/10) Family History Grandfather Stroke Grandmother Dementia Social History household members: significant other Smoking Status: Never smoker alcohol intake: current Smoking Status: Never smoker alcohol intake frequency: holidays/special occasions only Substance Use Type: does not use Exam Narrative Exam Narrative: GENERAL: in no distress, not toxic not dyspneic HEAD: Normocephalic. EYES: Pupils equal round, no photophobia no papilledema ENT: Mucous membranes moist. NECK: Trachea midline. Active range of motion, no meningeal signs CARDIOVASCULAR: Regular rate and rhythm without murmurs RESPIRATORY: Clear to auscultation. Breath sounds equal bilaterally. No wheezes, rales, or rhonchi. GASTROINTESTINAL: Abdomen soft, non-tender EXTREMITIES: No gross deformities. BACK: No flank tenderness. NEURO: AOx4. Clear speech no facial droop light touch intact bilateral face and hands with strong equal pi/senior research associate. Fast exam is negative SKIN: Warm and dry PSYCH: Not anxious, is cooperative Initial Vital Signs Initial Vital Signs: Vital Signs Temperature 96.0 F L 05/07/22 13:18 Pulse Rate 62 05/07/22 13:18 Respiratory Rate 15 05/07/22 13:18 Blood Pressure 212/124 H 05/07/22 13:18 Pulse Oximetry 100 05/07/22 13:18 Oxygen Delivery Method 05/07/22 13:18 Course Orders Ordered: Discontinued Medications Diphenhydramine HCl (Diphenhydramine 50 Mg/Ml Vial) 12.5 mg IV NOW ONE Stop: 05/07/22 14:20 Last Admin: 05/07/22 14:34 Dose: 12.5 mg Documented By: ESA Ketorolac Tromethamine (Ketorolac 30 Mg/Ml Vial) 15 mg IV NOW ONE Stop: 05/07/22 16:40 Last Admin: 05/07/22 16:51 Dose: 15 mg Documented By: ESA Metoclopramide HCl (Metoclopramide 10 Mg/2 Ml Inj) 10 mg IV NOW ONE Stop: 05/07/22 14:20 Last Admin: 05/07/22 14:34 Dose: 10 mg Documented By: ESA Vital Signs Vital signs: Vital Signs - 8 hr 05/07/22 13:18 05/07/22 14:23 05/07/22 14:34 Temperature 96.0 F L 98 F Pulse Rate 62 60 60 Respiratory Rate 15 18 18 Blood Pressure 212/124 H 196/116 H 184/110 H Pulse Oximetry 100 100 Oxygen Delivery Method Room Air 05/07/22 15:00 05/07/22 15:30 Temperature Pulse Rate 62 60 Respiratory Rate Blood Pressure 149/91 H 139/82 Pulse Oximetry 99 96 Oxygen Delivery Method Room Air Room Air Medical Decision Making Medical Records Medical records narrative: Patient here for high blood pressure and headache. Onset this morning when she awoke with mild headache that is diffuse in pressure. Through the course of day and has elevated. She went to her dental appointment but blood pressure was too high for any procedures and was sent here for re-evaluation. Denies any nausea or vomiting vision changes no chest pain no palpitations no numbness tingling or weakness no syncope. Patient was seen here exactly 3 years ago May 07, 2019. For the same complaint. Headache and high blood pressure. Patient denies any changes in her health or routine or medications or diet. No new stressors in life. Pain is diffuse and retro-orbital. Pressure 8/10. Fast exam is negative. After exam and history, CBC CMP head CT EKG troponin have been ordered. Review of last visit here 3 years ago will order Reglan and Benadryl to start for headache cocktail. [facility] CC: Headache/high blood pressure Complicating co-morbidities: Hypertension Data collected from: Patient Medical records reviewed: Visit here May 07, 2023 high blood pressure and headache. Patient was discharged home. Head headache cocktail medication and felt much better and blood pressure improved Differential considered: Includes but not limited to subarachnoid bleed/hypertensive urgency/migraine headache/stroke Exam documented above, pertinent findings include: No meningeal signs. Fast exam is negative Lab Test results independently reviewed as above. Pertinent findings: CBC without leukocytosis, CMP is normal except for sodium of 134, troponin normal Independently reviewed EKG as above Imaging studies independently reviewed: Consultations: Treatments: Re-evaluations: Discussion: Diagnosis: Lab Data 05/07/22 13:28 05/07/22 13:28 Labs: Lab Results 05/07/22 05/07/22 05/07/22 Range/Units 13:28 13:28 13:28 WBC 6.2 (4.5-11.0) X10^3/uL RBC 4.64 (4.0-5.2) X10^6/uL Hgb 14.4 (12.0-16.0) g/dL Hct 41.9 (36-46) % MCV 90.2 (80-100) fL MCH 31.1 (26-34) PG MCHC 34.4 (30-36) % RDW 13.2 (11.6-14.8) % Plt Count 275 (150-400) X10^3/uL Neut % (Auto) 54.4 (50-75) % Lymph % (Auto) 31.8 (25-40) % [place]quois % (Auto) 8.5 (3-14) % Eos % (Auto) 4.3 H (2-4) % Baso % (Auto) 1.0 (0-2) % Neut # (Auto) 3400 (6680-4370) /uL Lymph # (Auto) 2000 (1866-9149) /uL [place]ois # (Auto) 500 (0-900) /uL Eos # (Auto) 300 (0-450) /uL Baso # (Auto) 100 (0-100) /uL PT 12.1 (10.1-12.7) SECONDS INR 1.1 (0.9-1.3) APTT 32 (26-36) SECONDS Sodium 134 L (137-145) mmol/L Potassium 3.5 (3.4-5.1) mmol/L Chloride 99 (98-107) mmol/L Carbon Dioxide 27 (22-32) mmol/L BUN 14 (7-17) mg/dL Creatinine 0.68 (0.52-1.04) mg/dL Estimated GFR > 60 (>60) mL/min BUN/Creatinine Ratio 20.6 (6-22) Glucose 102 (80-110) mg/dL Calcium 9.2 (8.4-10.2) mg/dL Magnesium 2.0 (1.6-2.3) mg/dL Total Bilirubin 0.8 (0.2-1.3) mg/dL AST 22 (14-36) IU/L ALT 17 (<35) IU/L Alkaline Phosphatase 64 (38-126) U/L Total Creatine Kinase 32 (30-135) U/L CK-MB (CK-2) TNP CK-MB (CK-2) Rel Index TNP Troponin I < 0.012 (0.01-0.034) ng/mL Total Protein 7.8 (6.3-8.2) g/dL Albumin 4.5 (3.5-5.0) g/dL Globulin 3.3 (1.7-4.1) g/dL Albumin/Globulin Ratio 1.4 (1.0-2.8) Lipase 102 (23-300) U/L Imaging Data Chest x-ray: Radiologist's Impression: [address] [address] XRay Report Signed Patient: Faustina Aragon MR#: [id number] : 1960 Acct:[id number] Age/Sex: 61 / F Date of Service: 05/07/22 Loc: ED Accession Number: [id number] ?? Procedure: XR chest 1V Ordering Provider: Dwayne Hughes MD PROCEDURE:? XR CHEST 1V ? INDICATIONS:? chest pain ? TECHNIQUE:? One view of the chest was acquired.? ? COMPARISON:? [facility], , XR CHEST 1V, 05/07/2019, 13:37. ? FINDINGS:? ? Surgical changes and devices:? Left chest wall pacemaker leads are in the region of right atrium and right ventricle. ? Lungs and pleura:? Lungs are clear.? No pleural effusions or pneumothorax.? ? Mediastinum:? Mediastinal contours appear normal.? Heart size is normal.? ? Bones and chest wall:? No suspicious bony lesions.? Overlying soft tissues appear unremarkable.? ? IMPRESSION:? No acute cardiopulmonary pathology. ? ? Dictated by: Navarro Cintron M.D. on 05/07/2022 at 14:13 ? ? Approved by: Navarro Cintron M.D. on 05/07/2022 at 14:19 ? CT scan - head: Radiologist's Impression: [address] [address] [address] Scan Report Signed Patient: Faustina Aragon MR#: [id number] : 1960 Acct:[id number] Age/Sex: 61 / F Date of Service: 05/07/22 Loc: ED Accession Number: [id number] ?? Procedure: CT head/brain wo con Ordering Provider: Dwayne Hughes MD PROCEDURE:? CT HEAD/BRAIN WO CON ? INDICATIONS:? Headache ? TECHNIQUE:? Noncontrast 4.5 mm thick angled axial sections acquired from the foramen magnum to the vertex, with coronal and sagittal reformats.? For radiation dose reduction, the following was used:? automated exposure control, adjustment of mA and/or kV according to patient size.? ? COMPARISON:? [facility], CT, CT HEAD/BRAIN WO CON, 05/07/2019, 13:46. ? FINDINGS:? Image quality:? Good ? CSF spaces: Basal cisterns are patent. Lateral ventricles are symmetric. Xanthogranulomas of the choroid plexuses. Volume: Generally maintained. ? Brain: No intracranial hemorrhage. Curtis-white differentiation is grossly maintained. ? Craniofacial structures:? Partial opacification and hypoplasia of the left mastoid air cells as before. ? IMPRESSION:? No acute intracranial abnormality.? Partial opacification and hypoplasia of the left mastoid air cells, as before.? ? ? Dictated by: Rocky Eid M.D. on 05/07/2022 at 14:44 ? ? Approved by: Rocky Eid M.D. on 05/07/2022 at 14:47 ? ECG Data Interpretation: Sinus rhythm rate [address] elevation or depression MDM Narrative Medical decision making narrative: Patient here for high blood pressure and headache. Onset this morning when she awoke with mild headache that is diffuse in pressure. Through the course of day and has elevated. She went to her dental appointment but blood pressure was too high for any procedures and was sent here for re-evaluation. Denies any nausea or vomiting vision changes no chest pain no palpitations no numbness tingling or weakness no syncope. Patient was seen here exactly 3 years ago May 07, 2019. For the same complaint. Headache and high blood pressure. Patient denies any changes in her health or routine or medications or diet. No new stressors in life. Pain is diffuse and retro-orbital. Pressure 8/10. Fast exam is negative. After exam and evaluation. CT head CBC CMP troponin EKG, chest x-ray have been ordered, Toradol Benadryl Reglan ordered as well MDM CC: Headache/high blood pressure Complicating co-morbidities: History of high blood pressure. Data collected from: Patient Medical records reviewed: Medical records reviewed from visit exactly 3 years ago from today for same complaint and treatment plan and results Differential considered: Includes but not limited to hypertensive urgency/migraine headache/intracranial bleed/stroke Exam documented above, pertinent findings include: No neuro deficits. Lab Test results independently reviewed as above. Pertinent findings: CBC without leukocytosis. CMP normal except for sodium 134 Independently reviewed EKG as above Imaging studies independently reviewed: CT head without contrast no acute process. Chest x-ray no acute process Consultations: None indicated at this time Treatments: Toradol Benadryl Reglan Re-evaluations: 128/83, blood pressure has improved periods 6:00 p.m.. Patient states feels much better after Toradol as well as Benadryl and Reglan. Headache nearly gone. She feels much more comfortable and desires discharge home. Return precautions reviewed with her. Discussion: Appropriate for discharge home. Exam and laboratory studies and imaging are reassuring. Patient seen for the same complaint 3 years ago to the day. Same medication regimen used in with good results. Patient understands will need follow up with primary care for blood pressure measurement as well as possible development of migraine headaches and maintenance medications. Not toxic or discharge. She desires discharge home. No lumbar puncture indicated. Patient symptoms resolved with conservative treatment. Diagnosis: Headache/hypertension Discharge Plan Departure Patient Disposition: Home Clinical Impression: Headache, Hypertension Instructions: DI for High Blood Pressure, DI for Headache Activity Restrictions/Additional Instructions: Please see family doctor this week for re-evaluation of your blood pressure and headache. Return if worsening questions or concerns. Please do continue your home medications. You may need Neurology referral regarding possible developing migraine headaches. May need maintenance medications for migraines. Prescriptions: No Action estradiol [Estrace] 0.01 % (0.1 mg/gram) cream 0.5 appful vaginal DAILY Qty: 42.5 11RF Rx Instructions: for 14 days, then 2-3 times per week as needed. lisinopril 5 mg tablet 5 mg PO DAILY Qty: 90 3RF Rx Instructions: Take 1 tab at bedtime daily for HTN, goal of bp under 140/90 consistently alprazolam 0.5 mg tablet 0.5 mg PO TID PRN (Reason: Anxiety) Qty: 10 1RF Rx Instructions: as needed for travel metoprolol succinate 50 mg tablet extended release 24 hr 75 mg PO DAILY Qty: 120 3RF amiodarone 200 mg tablet 100 mg PO DAILY Qty: 0 Rx Instructions: Per Dr. Zuniga sumatriptan succinate 50 mg tablet See Rx Instructions PO .COMPLEX Qty: 20 4RF Rx Instructions: take 1 tab at onset of headache; if no relief may repeat 1 tab after at least 2 hrs; max = 4 tabs/24 hr PO aspirin 81 mg Tablet,Delayed Release (/Ec) 81 mg PO DAILY Qty: 30 0RF Referrals: Andree Wood ARNP [Primary Care Provider] - Stand Alone Forms: Patient Portal/API
[2022-05-07 14:23] VITALS: BP 196/116; PULSE 60; RESP 18; O2SAT 100
[2022-05-07 14:34] VITALS: BP 184/110; PULSE 60; RESP 18; TEMP 36.6
[2022-05-07] MEDS: diphenhydrAMINE 50 MG/ML VIAL 12.5 MG IV (14:34)
[2022-05-07] MEDS: METOCLOPRAMIDE 10 MG/2 ML INJ IV (14:34)
[2022-05-07 15:00] VITALS: BP 149/91; PULSE 62; O2SAT 99
[2022-05-07 15:30] VITALS: BP 139/82; PULSE 60; O2SAT 96
[2022-05-07] MEDS: KETOROLAC 30 MG/ML VIAL 15 MG IV (16:51)
[2022-05-07 18:27] VITALS: BP 128/83; PULSE 60; RESP 16; O2SAT 97
== END 2022-05-07 18:27 | disposition home or self-care (01) ==
PROVIDERS: Emergency Provider Emergency Medicine; PCP Nurse Practitioner
DX: R51.9 Headache, unspecified (principal); I10 Essential (primary) hypertension
CPT/HCPCS: 36415; 70450; 71045; 80053; 82550; 83690; 83735; 84484; 85025; 85610; 85730; 93005; 96374; 96375; 99284; J1200; J1885; J2765

== ENCOUNTER → 2022-10-01 14:26 | Outpatient (CLI) | payer MEDICARE, SELFPAY ==
[2019-04-15 10:04] VITALS: BMI 21.7
--- NOTE | 2022-10-01 14:27 | DI.MG.S_ITS ---
BILATERAL DIGITAL SCREENING MAMMOGRAM 3D/2D WITH CAD: 10/01/2022 CLINICAL: Routine screening. Family history of breast cancer. Comparison is made to exams dated: 01/12/2014 mammogram and 11/25/2012 mammogram - [facility]. There are scattered areas of fibroglandular density in both breasts (category b / 25%-50% glandular tissue). Current study was also evaluated with a Computer Aided Detection (CAD) system. There are benign vascular calcifications in both breasts. No significant masses, calcifications, or other findings are seen in either breast. There has been no significant interval change. IMPRESSION: BENIGN There is no mammographic evidence of malignancy. A 1 year screening mammogram is recommended. Based on the Tyrer Cuzick model (a risk assessment model) the patient's lifetime risk is 5.2% and her 10 year risk is 2.3%. According to the ACR, ACS, and NCCN guidelines, an annual breast MRI exam along with mammogram is recommended if the patient's lifetime risk is 20% or greater. This exam was interpreted at Station ID: [id number]. NOTE: For mammograms, a report in lay terms will be sent to the patient. Approximately 15% of breast malignancies will not be visualized mammographically. In the management of a palpable breast mass, a negative mammogram must not discourage biopsy of a clinically suspicious lesion. Electronically Signed By: Shadi mills/jacob:10/01/2022 16:47:36 letter sent: Normal Exam ACR BI-RADS Category 2: Benign Finding(s) [id number]
== END ==
PROVIDERS: Family Provider Nurse Practitioner; PCP Nurse Practitioner; Referring Provider Nurse Practitioner; Visit Provider Nurse Practitioner
DX: Z12.31 Encounter for screening mammogram for malignant neoplasm of breast (principal); Z80.3 Family history of malignant neoplasm of breast
CPT/HCPCS: 77063; 77067

== ENCOUNTER 2022-11-07 13:02 | Outpatient (RCR) | payer MEDICARE, SELFPAY ==
[2019-04-15 10:04] VITALS: BMI 21.7
--- NOTE | 2022-11-07 15:41 | PT.OIE ---
Current Diagnoses Other specified disorders of muscle (11/07/22) Mixed incontinence (11/07/22) Pelvic and perineal pain (11/07/22) Lower abdominal pain, unspecified (11/07/22) Past Medical History (Last Reviewed 09/15/22 @ 11:52 by ERMELINDA Chowdary) ADHD Alcohol abuse Allergies Arthritis Basal cell carcinoma Bronchitis Cardiac arrhythmia Carpal tunnel syndrome Chest pain syndrome Chronic back pain Chronic headaches Depression Elevated TSH H/O hypertensive crisis Hearing loss Herniated disc Hypertension Hypertension Idiopathic ventricular tachycardia Loss of smell Migraine PTSD (post-traumatic stress disorder) Recurrent sinusitis Skin cancer Spinal stenosis Tachyarrhythmia UTI (urinary tract infection) Past Surgical History (Last Reviewed 09/15/22 @ 11:52 by ERMELINDA Chowdary) Anesthesia H/O laparoscopy H/O: hysterectomy History of bilateral carpal tunnel release History of hysteroscopy History of implantable cardioverter-defibrillator (ICD) placement Hx of arthroscopy of right knee (07/04/15) Status post surgery (02/12/09) Status post surgery (09/02/10) Visit Care Team Role Provider Type ERMELINDA Chowdary Attending Provider Advanced Billing And Quality Technician Family Provider Primary Care Provider Referring Provider Specialty: [facility] Address: [address] [place] [address], [facility] Email: [email or web address] Physical Therapy Initial Evaluation PT-OP-A Visit Information Start: 10/23/22 17:51 Freq: Status: Active Protocol: Document 11/07/22 13:19 LRN (Rec: 11/07/22 15:10 DAMIR [id number]) Out-Patient Physical Therapy Visit Information Visit Information Visit Type Initial Evaluation Visit Start Time 13:19 Visit Stop Time 13:17 Total Visit Minutes 68 Visit Number 1 Evaluation Information Evaluation Date 11/07/22 Precautions Precautions Pacemaker w/defibrilator - 8 yrs ago, spinal stenosis of C/ S, depression, controlled HBP by meds, arthritis. PT-OP-B Current Condition Start: 10/23/22 17:51 Freq: Status: Active Protocol: Document 11/07/22 13:19 LRN (Rec: 11/07/22 15:10 DAMIR [id number]) Current Condition History of Current Condition Onset Date 1995 Current Complaints Urinary urgency and History of Current Condition Pt states she gets a lot of bladder infections and ever since her twins were born (now age 25) she has had urinary leakage and urgency and it has been progressively worsening. Leaks with transfers sitting to standing, with squatting and any kind of up/down motion (ex-running). Leakage with coughing, laughing or sneezing . Wears a few pads daily ( period pantiliners). States she has had UTI symptoms for a couple years, but for the last few months she hasn't had the symptoms of stinging of urethra (stinging feeling like she had to go and with urination), but hasn't had the sensation for the past 2 months and doesn't recall of any change in her life/daily routine. Developmental History Developmental History 6 pregnancies and 7 children with twins as last pregancy ( 1979 - 1995), vaginal births with tearing on 1 ( ). Partial hysterectomy through vagina. Treatment Goals Patient/Caregiver Goals Pt goals: Not have so many bladder, UTI' s Be able to run without leakage Decrease need to go to bathroom (getting up 3-4x per night) to 1x/night. Placement on a HEP. Personal Factors Other Personal Factors That May Effect 6 , 7 Parity (last Therapy/Recovery with twins), Pacemaker w/defibrilator, longstanding history of bladder and urinary tract infections. PT-OP-C Subjective Start: 10/23/22 17:51 Freq: Status: Active Protocol: Document 11/07/22 13:19 LRN (Rec: 11/07/22 15:10 LRN [id number]) Patient Questionnaires Pelvic Pain and Urgency/Frequency Patient Symptom Scale Pelvic Pain Score 14 PT-OP-I Pelvic Floor Start: 10/23/22 17:51 Freq: Status: Active Protocol: Document 11/07/22 13:19 LRN (Rec: 11/07/22 15:34 LRN [id number]) Pelvic Floor Assessment Urine Urinary Symptoms Dribbling After Urination, Falling Out Feeling/Heavy Leakage Cause Cough,Exercise,Sneeze,Urge Other Leakage Causes Transfers sit to stand. Leaks Per Day unknown Voiding Frequency Every 1-2 hours Nocturia 3-4x Pads Used In 24 Hours 3 Urine Pad Type Panty Liner Bowel Bowel Symptoms Uncontrolled Flatulence Pelvic Clock Pelvic Clock 12-3 Tenderness Pelvic Clock 3-6 Tenderness Pelvic Clock 6-9 Tenderness Pelvic Clock 9-12 Tenderness Prolapse Cystocele Grade 2 Rectocele Grade 1 Prolapse Comments Drop of Uterus felt with cough . Perineal Descent Bearing Present Contraction Ability Manual Muscle Testing Left 2 Manual Muscle Testing Right 2 Manual Muscle Testing Anterior 0 Manual Muscle Testing Posterior 3 Muscle Endurance (Seconds) 8 Number of Quick Contractions In 10 6 Seconds Comments Pelvic Floor Comments Tenderness in lower abdomen, external PF and 2-11 of PF Clock PT-OP-J Posture/Palpation/Skin Start: 10/23/22 17:51 Freq: Status: Active Protocol: Document 11/07/22 13:19 LRN (Rec: 11/07/22 15:10 LRN [id number]) Posture Evaluation Position Standing Head/C-Spine Posture Neutral Position Comments Posture Comments Normal with slight elevation or L iliac crest. PT-OP-K Range of Motion Start: 10/23/22 17:51 Freq: Status: Active Protocol: Document 11/07/22 13:19 LRN (Rec: 11/07/22 15:10 LRN [id number]) Lumbar Spine Range of Motion Lumbar Spine Active Degrees Testing Position Standing Flexion 95 Extension 25 Rotation Left 55 Rotation Right 55 Lateral Flexion Left 17 Lateral Flexion Right 15 Comments Trunk AROM: Flexion is 95 deg ?s with 55 deg?s hip flexion, Trunk extension is 25 deg?s with 20 deg?s hip extension. Hip Goniometric Range of Motion Hip Right Passive Testing Position Supine Internal Rotation 20 External Rotation 60 Left Passive Testing Position Supine Internal Rotation 20 External Rotation 70 PT-OP-M Strength Start: 10/23/22 17:51 Freq: Status: Active Protocol: Document 11/07/22 13:19 LRN (Rec: 11/07/22 15:10 LRN [id number]) Trunk Strength Trunk Manual Muscle Testing Core Stabilization Pt able to mostly stabilize the core with MMT of hips ( mild weakness with L trunk rot ). Hip Strength Hip Manual Muscle Testing Right Extension (S1) 3 Fair Internal Rotation 4- Good- Comments Strength is 5/5 except as indicated above. Left Flexion (L2) 3+ Fair+ Extension (S1) 3 Fair External Rotation 4+ Good+ Internal Rotation 3 Fair Comments Strength is 5/5 except as indicated above. PT-OP-Q Treatments Start: 10/23/22 17:51 Freq: Status: Active Protocol: Document 11/07/22 13:19 LRN (Rec: 11/07/22 15:10 LRN [id number]) Therapeutic Exercises Sitting Exercises LE roll in/outs Sitting Exercise Name LE roll in/outs training for HEP Side bilateral Reps/Minutes 3' Self-Care/Home Management Treatment Education Patient Education Home Exercise Program Other Education Discussed at length results of evaluation and educated pt in PF/abdominal pain relation to PF/abdominal tightness and discussed at length goals. Discussed plan of care (POC) with pt agreeable to goals and POC. Activities Self-Care/Home Management Activities I/S pt in HEP: Kegels while doing roll in/outs, 10 sec holds with 20 sec rest. PT-OP-T Assessment and Plan Start: 10/23/22 17:51 Freq: Status: Active Protocol: Document 11/07/22 13:19 LRN (Rec: 11/07/22 15:10 LR [id number]) Physical Therapy Assessment Rehab Potential Rehabilitation Potential Excellent Evaluation Complexity Number of Personal Factors/Comorbidities 1-2 Number of Body Systems Impaired 4 or More Clinical Presentation at Evaluation Evolving Impairments Impairments Pain,ROM,Soft Tissue Mobility, Transfers Goals Four Impairment Increased nighttime voiding frequency. Impairment Voiding 4-5 times per day and 3 times at night. Nursing Home Goal (LTG) Decrease need to go to bathroom (getting up 3-4x per night) to 1x/night. LTG Duration 02/05/23 Three Impairment Decreased PF strength (stress incontinence) Impairment Pt has urinary leakage with walking, running, coughing, sneezing, laughing. Short Term Goal (STG) Pt will be able to perform a PF contraction in the absence of abdominal/gluteal muscles. STG Duration 3 weeks (11/28/22) Nursing Home Goal (LTG) Improve PF strength to 3/5 to be able to walk without leakage, cough, sneeze or laugh without leakage and be educated in program to work towards run without leakage. LTG Duration 02/05/23 Two Impairment Urge incontinence Impairment 6x/year has bladder & UTI's. Short Term Goal (STG) Pt will be educated in Urinary delay technique. STG Duration 1 week (11/14/22) Nursing Home Goal (LTG) Decrease bladder, UTI's infection symptom with no infections during PT PF rehab or Eliminate urinary leakage with a strong urge. LTG Duration 02/05/23 One Impairment Pt lacks an independent self care HEP. Short Term Goal (STG) Pt educated in proper transfers to lessen core abdominal pressure. STG Duration 2 weeks (11/21/22) Farm Adviser Goal (LTG) Pt will be independent in a self care HEP for PF strengthening. Assessment Summary Assessment Pt is a 62 yo female who presents with mixed urinary incontinence, prolapse of urterus, bladder and mildly rectum. Her PUF score indicates possible interstitial cystitis with PF pain of lower abdomen, external and internal PF tissue tenderness. She is limited in use of modalities for PF awareness training due to pacemaker implant. It is expected due to her comorbidities that her PF rehabilitation may require longer therapy time. The pt will benefit from skilled physical therapy to work towards achieving the above stated goals. Physical Therapy Plan Frequency and Duration Frequency of Treatment 1x/Week Duration of treatment (weeks) 12 Plan of Care Start Date 11/07/22 Plan of Care End Date 02/05/23 Therapeutic Interventions Therapeutic Interventions Home Exercise Program,Joint Mobilizations,Manual Therapy, Self-Care/Home Management,Soft Tissue Mobilization, Therapeutic Activities, Therapeutic Exercises Modalities Biofeedback,Electric Stimulation Next Visit Focus/Plan Next Note Type Treatment Note Next Visit Plan Issue bladder diary, Discuss foods, and water intake after bladder diary review. Pt education in bladder retraining with urge deference technique, proper Kegel without use of substitute muscles, reduction of intra- abdominal pressure, proper deep breathing, and proper breathing with transfers and body mechanics. Ther Ex of PF/hip (ext, IR, L ER) strengthening, improve hip (IR, R hip ER) mobility, Improve abdominal soft tissue (uterus, bladder) mobility and Sacral balancing. POC: Pt education, Manual therapy. Biofeedback with vaginal sensor. Therapeutic Exercises, Therapeutic Activities, Neuromuscular Reeducation.
--- NOTE | 2022-11-07 15:42 | PT.OPPOC ---
Physical, Occupational & Speech Therapy At Current Diagnoses Other specified disorders of muscle (11/07/22) Mixed incontinence (11/07/22) Pelvic and perineal pain (11/07/22) Lower abdominal pain, unspecified (11/07/22) Visit Care Team Role Provider Type ERMELINDA Chowdary Attending Provider Advanced Junior Art Director Family Provider Primary Care Provider Referring Provider Specialty: Family Practice Address: [address] [place] [address], [facility] Email: [email or web address] Plan Of Care PT-OP-T Assessment and Plan Start: 10/23/22 17:51 Freq: Status: Active Protocol: Document 11/07/22 13:19 LRN (Rec: 11/07/22 15:10 LRN [id number]) Physical Therapy Assessment Rehab Potential Rehabilitation Potential Excellent Evaluation Complexity Number of Personal Factors/Comorbidities 1-2 Number of Body Systems Impaired 4 or More Clinical Presentation at Evaluation Evolving Impairments Impairments Pain,ROM,Soft Tissue Mobility, Transfers Goals Four Impairment Increased nighttime voiding frequency. Impairment Voiding 4-5 times per day and 3 times at night. Clearance Cutter Goal (LTG) Decrease need to go to bathroom (getting up 3-4x per night) to 1x/night. LTG Duration 02/05/23 Three Impairment Decreased PF strength (stress incontinence) Impairment Pt has urinary leakage with walking, running, coughing, sneezing, laughing. Short Term Goal (STG) Pt will be able to perform a PF contraction in the absence of abdominal/gluteal muscles. STG Duration 3 weeks (11/28/22) [facility] Goal (LTG) Improve PF strength to 3/5 to be able to walk without leakage, cough, sneeze or laugh without leakage and be educated in program to work towards run without leakage. LTG Duration 02/05/23 Two Impairment Urge incontinence Impairment 6x/year has bladder & UTI's. Short Term Goal (STG) Pt will be educated in Urinary delay technique. STG Duration 1 week (11/14/22) [facility] Goal (LTG) Decrease bladder, UTI's infection symptom with no infections during PT PF rehab or Eliminate urinary leakage with a strong urge. LTG Duration 02/05/23 One Impairment Pt lacks an independent self care HEP. Short Term Goal (STG) Pt educated in proper transfers to lessen core abdominal pressure. STG Duration 2 weeks (11/21/22) Clearance Cutter Goal (LTG) Pt will be independent in a self care HEP for PF strengthening. Assessment Summary Assessment Pt is a 62 yo female who presents with mixed urinary incontinence, prolapse of urterus, bladder and mildly rectum. Her PUF score indicates possible interstitial cystitis with PF pain of lower abdomen, external and internal PF tissue tenderness. She is limited in use of modalities for PF awareness training due to pacemaker implant. It is expected due to her comorbidities that her PF rehabilitation may require longer therapy time. The pt will benefit from skilled physical therapy to work towards achieving the above stated goals. Physical Therapy Plan Frequency and Duration Frequency of Treatment 1x/Week Duration of treatment (weeks) 12 Plan of Care Start Date 11/07/22 Plan of Care End Date 02/05/23 Therapeutic Interventions Therapeutic Interventions Home Exercise Program,Joint Mobilizations,Manual Therapy, Self-Care/Home Management,Soft Tissue Mobilization, Therapeutic Activities, Therapeutic Exercises Modalities Biofeedback,Electric Stimulation Next Visit Focus/Plan Next Note Type Treatment Note Next Visit Plan Issue bladder diary, Discuss foods, and water intake after bladder diary review. Pt education in bladder retraining with urge deference technique, proper Kegel without use of substitute muscles, reduction of intra- abdominal pressure, proper deep breathing, and proper breathing with transfers and body mechanics. Ther Ex of PF/hip (ext, IR, L ER) strengthening, improve hip (IR, R hip ER) mobility, Improve abdominal soft tissue (uterus, bladder) mobility and Sacral balancing. POC: Pt education, Manual therapy. Biofeedback with vaginal sensor. Therapeutic Exercises, Therapeutic Activities, Neuromuscular Reeducation. Plan of Care Dates Plan of Care Start Date 11/07/22 Plan of Care End Date 02/05/23 Electronically Signed by: Belkis Rowan, PT 11/07/22 8855 If you are in agreement with this Plan of Care, please return a signed and dated copy. I have reviewed this Plan of Care and certify that the skilled therapy services above are required to meet the patient?s needs. Physician Signature Date Printed Name and Credentials Clinical Instructor Signature Printed Name and Credentials
--- NOTE | 2023-01-06 10:25 | PT.OPDS ---
Current Diagnoses Other specified disorders of muscle (11/07/22) Mixed incontinence (11/07/22) Pelvic and perineal pain (11/07/22) Lower abdominal pain, unspecified (11/07/22) Visit Care Team Role Provider Type ERMELINDA Chowdary Attending Provider Advanced Operational Meteorologist Family Provider Primary Care Provider Referring Provider Specialty: [facility] Practice Address: [address] [place] [address], [facility] Email: [email or web address] Visit Number Visit Number 1 Discharge Summary PT-OP-B Current Condition Start: 10/23/22 17:51 Freq: Status: Active Protocol: Document 11/07/22 13:19 LRN (Rec: 11/07/22 15:10 LRN [id number]) Current Condition History of Current Condition Onset Date 1995 Current Complaints Urinary urgency and History of Current Condition Pt states she gets a lot of bladder infections and ever since her twins were born (now age 25) she has had urinary leakage and urgency and it has been progressively worsening. Leaks with transfers sitting to standing, with squatting and any kind of up/down motion (ex-running). Leakage with coughing, laughing or sneezing . Wears a few pads daily ( period pantiliners). States she has had UTI symptoms for a couple years, but for the last few months she hasn't had the symptoms of stinging of urethra (stinging feeling like she had to go and with urination), but hasn't had the sensation for the past 2 months and doesn't recall of any change in her life/daily routine. Developmental History Developmental History 6 pregnancies and 7 children with twins as last pregancy ( 1979 - 1995), vaginal births with tearing on 1 ( ). Partial hysterectomy through vagina. Treatment Goals Patient/Caregiver Goals Pt goals: Not have so many bladder, UTI' s Be able to run without leakage Decrease need to go to bathroom (getting up 3-4x per night) to 1x/night. Placement on a HEP. Personal Factors Other Personal Factors That May Effect 6 , 7 Parity (last Therapy/Recovery with twins), Pacemaker w/defibrilator, longstanding history of bladder and urinary tract infections. PT-OP-C Subjective Start: 10/23/22 17:51 Freq: Status: Active Protocol: Document 11/07/22 13:19 LRN (Rec: 11/07/22 15:10 LRN [id number]) Patient Questionnaires Pelvic Pain and Urgency/Frequency Patient Symptom Scale Pelvic Pain Score 14 PT-OP-I Pelvic Floor Start: 10/23/22 17:51 Freq: Status: Active Protocol: Document 11/07/22 13:19 LRN (Rec: 11/07/22 15:34 LRN [id number]) Pelvic Floor Assessment Urine Urinary Symptoms Dribbling After Urination, Falling Out Feeling/Heavy Leakage Cause Cough,Exercise,Sneeze,Urge Other Leakage Causes Transfers sit to stand. Leaks Per Day unknown Voiding Frequency Every 1-2 hours Nocturia 3-4x Pads Used In 24 Hours 3 Urine Pad Type Panty Liner Bowel Bowel Symptoms Uncontrolled Flatulence Pelvic Clock Pelvic Clock 12-3 Tenderness Pelvic Clock 3-6 Tenderness Pelvic Clock 6-9 Tenderness Pelvic Clock 9-12 Tenderness Prolapse Cystocele Grade 2 Rectocele Grade 1 Prolapse Comments Drop of Uterus felt with cough . Perineal Descent Bearing Present Contraction Ability Manual Muscle Testing Left 2 Manual Muscle Testing Right 2 Manual Muscle Testing Anterior 0 Manual Muscle Testing Posterior 3 Muscle Endurance (Seconds) 8 Number of Quick Contractions In 10 6 Seconds Comments Pelvic Floor Comments Tenderness in lower abdomen, external PF and 2-11 of PF Clock PT-OP-J Posture/Palpation/Skin Start: 10/23/22 17:51 Freq: Status: Active Protocol: Document 11/07/22 13:19 LRN (Rec: 11/07/22 15:10 LRN [id number]) Posture Evaluation Position Standing Head/C-Spine Posture Neutral Position Comments Posture Comments Normal with slight elevation or L iliac crest. PT-OP-K Range of Motion Start: 10/23/22 17:51 Freq: Status: Active Protocol: Document 11/07/22 13:19 LRN (Rec: 11/07/22 15:10 LRN [id number]) Lumbar Spine Range of Motion Lumbar Spine Active Degrees Testing Position Standing Flexion 95 Extension 25 Rotation Left 55 Rotation Right 55 Lateral Flexion Left 17 Lateral Flexion Right 15 Comments Trunk AROM: Flexion is 95 deg ?s with 55 deg?s hip flexion, Trunk extension is 25 deg?s with 20 deg?s hip extension. Hip Goniometric Range of Motion Hip Right Passive Testing Position Supine Internal Rotation 20 External Rotation 60 Left Passive Testing Position Supine Internal Rotation 20 External Rotation 70 PT-OP-M Strength Start: 10/23/22 17:51 Freq: Status: Active Protocol: Document 11/07/22 13:19 LRN (Rec: 11/07/22 15:10 LRN [id number]) Trunk Strength Trunk Manual Muscle Testing Core Stabilization Pt able to mostly stabilize the core with MMT of hips ( mild weakness with L trunk rot ). Hip Strength Hip Manual Muscle Testing Right Extension (S1) 3 Fair Internal Rotation 4- Good- Comments Strength is 5/5 except as indicated above. Left Flexion (L2) 3+ Fair+ Extension (S1) 3 Fair External Rotation 4+ Good+ Internal Rotation 3 Fair Comments Strength is 5/5 except as indicated above. PT-OP-T Assessment and Plan Start: 10/23/22 17:51 Freq: Status: Active Protocol: Document 01/06/23 10:22 LRN (Rec: 01/06/23 10:23 LRN [id number]) Physical Therapy Assessment Goals Four Impairment Increased nighttime voiding frequency. Impairment Voiding 4-5 times per day and 3 times at night. Winterizer Goal (LTG) Decrease need to go to bathroom (getting up 3-4x per night) to 1x/night. LTG Duration 02/05/23 Three Impairment Decreased PF strength (stress incontinence) Impairment Pt has urinary leakage with walking, running, coughing, sneezing, laughing. Short Term Goal (STG) Pt will be able to perform a PF contraction in the absence of abdominal/gluteal muscles. STG Duration 3 weeks (11/28/22) Winterizer Goal (LTG) Improve PF strength to 3/5 to be able to walk without leakage, cough, sneeze or laugh without leakage and be educated in program to work towards run without leakage. LTG Duration 02/05/23 Two Impairment Urge incontinence Impairment 6x/year has bladder & UTI's. Short Term Goal (STG) Pt will be educated in Urinary delay technique. STG Duration 1 week (11/14/22) Winterizer Goal (LTG) Decrease bladder, UTI's infection symptom with no infections during PT PF rehab or Eliminate urinary leakage with a strong urge. LTG Duration 02/05/23 One Impairment Pt lacks an independent self care HEP. Short Term Goal (STG) Pt educated in proper transfers to lessen core abdominal pressure. STG Duration 2 weeks (11/21/22) Winterizer Goal (LTG) Pt will be independent in a self care HEP for PF strengthening. Assessment Summary Assessment Pt was seen for her initial evaluation on 11/07/22 and cancelled her 2 appointment made. The pt's plan of care has ; therefore the pt will need a new referral if pelvic floor rehab is needed. Physical Therapy Plan Discharge Physical Therapy Discharge Reasons No Longer Attending PT Discharge Comments Thank you for your referral.
== END 2023-01-09 14:03 ==
LOC: PHYS 13:02
PROVIDERS: Family Provider Nurse Practitioner; PCP Nurse Practitioner; Referring Provider Nurse Practitioner; Visit Provider Nurse Practitioner
DX: M62.89 Other specified disorders of muscle (principal); N39.46 Mixed incontinence; R10.2 Pelvic and perineal pain; R10.30 Lower abdominal pain, unspecified
CPT/HCPCS: 97162; 97535

== ENCOUNTER → 2023-02-02 14:30 | Outpatient (CLI) | payer MEDICARE, SELFPAY ==
[2019-04-15 10:04] VITALS: BMI 21.7
--- NOTE | 2023-02-02 14:31 | DI.RAD.S_ITS ---
PROCEDURE: XR CHEST 2V INDICATIONS: Cough TECHNIQUE: 2 views of the chest were acquired. COMPARISON: [facility], , XR CHEST 1V, 05/07/2022, 13:39. FINDINGS: Surgical changes and devices: A cardiac pacemaker is seen with pulse generator in the left chest. Lungs and pleura: Lungs are clear. No pleural effusions or pneumothorax. Mediastinum: Mediastinal contours are normal. Heart size is normal. Bones and chest wall: No suspicious bony abnormalities. Soft tissues appear unremarkable. IMPRESSION: No acute cardiopulmonary abnormality is seen. Approved by: Samuel Batista M.D. on 02/02/2023 at 16:09
== END ==
LOC: RAD 14:31
PROVIDERS: Family Provider Nurse Practitioner; PCP Nurse Practitioner; Referring Provider Nurse Practitioner Family; Visit Provider Nurse Practitioner Family
DX: R05.9 Cough, unspecified (principal)
CPT/HCPCS: 71046

== ENCOUNTER 2023-03-25 15:19 | Emergency (ER) | payer MEDICARE, SELFPAY ==
[2019-04-15 10:04] VITALS: BMI 21.7
[2023-03-25] VITALS (8 sets, daily range): BP systolic 166–201; BP diastolic 85–122; PULSE 60–65; RESP 13–25; TEMP 37.1; O2SAT 100; BMI 21.7
[2023-03-25 17:29] LABS: INR 1.1 (0.9-1.3); Prothrombin Time 12.3 SECONDS (9.4-12.5)
[2023-03-25 17:32] LABS: PTT Partial Thromboplastin Tim 32 SECONDS (25.1-36.5)
[2023-03-25 17:34] LABS: Alanine Aminotransferase 21 IU/L (<35); Albumin 4.9 g/dL (3.5-5.0); Albumin Globulin Ratio 1.4 (1.0-2.8); Alkaline Phosphatase 71 U/L (38-126); Aspartate Aminotransferase 26 IU/L (14-36); BUN Creatinine Ratio 19.4 (6-22); Bilirubin Total 1.3 mg/dL (0.2-1.3); Blood Urea Nitrogen 12 mg/dL (7-17); Calcium 10.5 mg/dL (8.4-10.2); Carbon Dioxide 25 mmol/L (22-32); Chloride 96 mmol/L (98-107); Creatine Kinase 52 U/L (30-135); Estimated Glomerular Filt Rate > 60 mL/min (>60); Globulin 3.6 g/dL (1.7-4.1); Glucose 99 mg/dL (80-110); HEMOLYSIS < 15 (0-50); Lipase 62 U/L (23-300); Potassium 3.7 mmol/L (3.4-5.1); Sodium 131 mmol/L (137-145); Total Protein 8.5 g/dL (6.3-8.2)
[2023-03-25 17:40] LABS: Add Manual Diff / Slide Review NO; Basophils Absolute Auto 100 /uL (0-100); Basophils Percent Auto 0.8 % (0-2); Eosinophils Absolute Auto 200 /uL (0-450); Eosinophils Percent Auto 2.8 % (2-4); Hematocrit 41.7 % (36-46); Hemoglobin 14.6 g/dL (12.0-16.0); Lymphocytes Absolute Auto 1900 /uL (1100-4500); Lymphocytes Percent Auto 28.9 % (25-40); Mean Corpuscular Hemoglobin 31.7 PG (26-34); Mean Corpuscular Volume 90.3 fL (80-100); Monocytes Absolute Auto 600 /uL (0-900); Monocytes Percent Auto 8.6 % (3-14); Neutrophils Absolute Auto 3900 /uL (1500-7000); Neutrophils Percent Auto 58.9 % (50-75); Platelet Count 320 X10^3/uL (150-400); Red Blood Cell Count 4.62 X10^6/uL (4.0-5.2); Red Cell Distribution Width 13.9 % (11.6-14.8); White Blood Cell Count 6.6 X10^3/uL (4.5-11.0)
[2023-03-25 17:45] LABS: Troponin I 0.019 ng/mL (0.01-0.034)
== END 2023-03-25 18:54 | disposition left against medical advice (07) ==
PROVIDERS: Emergency Provider Emergency Medicine; Family Provider Nurse Practitioner; PCP Nurse Practitioner
DX: I10 Essential (primary) hypertension (principal); Z53.21 Procedure and treatment not carried out due to patient leaving prior to being seen by health care provider
CPT/HCPCS: 36415; 80053; 82550; 83690; 83735; 84484; 85025; 85610; 85730; 93005; 93010; 99283

== ENCOUNTER → 2023-04-14 14:41 | Outpatient (CLI) | payer MEDICARE, SELFPAY ==
[2019-04-15 10:04] VITALS: BMI 21.7
--- NOTE | 2023-04-14 14:43 | DI.RAD.S_ITS ---
PROCEDURE: XR CHEST 2V INDICATIONS: cough TECHNIQUE: 2 views of the chest were acquired. COMPARISON: [facility], CR, XR CHEST 2V, 02/02/2023, 14:47. [facility], CR, XR CHEST 1V, 05/07/2022, 13:39. FINDINGS: Surgical changes and devices: Left chest wall generator with cardiac leads. Lungs and pleura: Lungs are clear. No pleural effusions or pneumothorax. Mediastinum: Mediastinal contours are normal. Heart size is normal. Bones and chest wall: No suspicious bony abnormalities. Soft tissues appear unremarkable. IMPRESSION: No acute cardiopulmonary abnormality is seen. Dictated by: Ismael Giron M.D. on 04/14/2023 at 17:07 Approved by: Ismael Giron M.D. on 04/14/2023 at 17:07
== END ==
PROVIDERS: Family Provider Nurse Practitioner; PCP Nurse Practitioner; Referring Provider Nurse Practitioner; Visit Provider Nurse Practitioner
DX: R05.9 Cough, unspecified (principal)
CPT/HCPCS: 71046

== ENCOUNTER → 2023-07-13 10:56 | Outpatient (CLI) | payer MEDICARE, SELFPAY ==
[2019-04-15 10:04] VITALS: BMI 21.7
[2023-07-13 12:57] LABS: Appearance Urine UA CLEAR; Bilirubin Urine UA NEGATIVE (NEGATIVE); Color Urine UA YELLOW; Glucose Urine UA NEGATIVE (Negative); Ketones Urine UA NEGATIVE (NEGATIVE); Leukocyte Esterase Urine UA 2+ (NEGATIVE); Nitrite Urine UA NEGATIVE (Negative); Occult Blood Urine UA NEGATIVE (Negative); Protein Urine UA NEGATIVE (Negative); Urobilinogen Urine UA 0.2 E.U./dL (0.2)
[2023-07-13 13:10] LABS: Bacteria Urine None Seen; Culture Indicated Urine Specimen Cultured; RBC Urine 0-1/HPF (0-5/HPF); Squamous Epithelial Cell Urine None Seen (0-5/HPF); Urine Volume 10mL (spun); WBC Urine 1-5/HPF (0-5/HPF)
== END ==
PROVIDERS: Family Provider Nurse Practitioner; PCP Nurse Practitioner; Visit Provider Nurse Practitioner
DX: R30.0 Dysuria (principal); R82.998 Other abnormal findings in urine
CPT/HCPCS: 81003; 81015; 87086

== ENCOUNTER → 2023-07-13 11:38 | Outpatient (CLI) | payer MEDICARE, SELFPAY ==
[2019-04-15 10:04] VITALS: BMI 21.7
--- NOTE | 2023-07-13 11:40 | DI.RAD.S_ITS ---
PROCEDURE: XR KNEE LT 3V INDICATIONS: medial knee pain x3 weeks TECHNIQUE: 3 views of the knee were acquired. COMPARISON: [facility], , KNEE 3V RIGHT, 02/26/2015, 13:51. [facility], , KNEE 3V LEFT, 08/18/2008, 7:36. FINDINGS: Bones: No fractures or dislocations. No suspicious bony lesions. Soft tissues: No suprapatellar joint effusion. No radiographically evident soft tissue swelling. IMPRESSION: No acute bony abnormality or significant effusion. Dictated by: Yung Sousa M.D. on 07/13/2023 at 13:35 Approved by: Yung Sousa M.D. on 07/13/2023 at 13:36
[2023-07-13 13:27] LABS: Alanine Aminotransferase 17 IU/L (<35); Albumin 4.2 g/dL (3.5-5.0); Albumin Globulin Ratio 1.4 (1.0-2.8); Alkaline Phosphatase 64 U/L (38-126); Aspartate Aminotransferase 22 IU/L (14-36); BUN Creatinine Ratio 18.3 (6-22); Bilirubin Total 0.5 mg/dL (0.2-1.3); Blood Urea Nitrogen 11 mg/dL (7-17); Calcium 9.8 mg/dL (8.4-10.2); Carbon Dioxide 27 mmol/L (22-32); Chloride 100 mmol/L (98-107); Estimated Glomerular Filt Rate > 60 mL/min (>60); Glucose 88 mg/dL (80-110); HEMOLYSIS < 15 (0-50); Potassium 4.7 mmol/L (3.4-5.1); Sodium 133 mmol/L (137-145); Total Protein 7.2 g/dL (6.3-8.2)
[2023-07-15 15:17] LABS: Alpha 1 Globulin 0.2 g/dL (0.0-0.4); Alpha 2 Globulin 0.6 g/dL (0.4-1.0); Beta 1 Globulin 0.9 g/dL (0.7-1.3); Gamma Globulin 1.2 g/dL (0.4-1.8); Protein, Total 6.9 g/dL (6.0-8.5)
== END ==
PROVIDERS: Family Provider Nurse Practitioner; PCP Nurse Practitioner; Referring Provider Nurse Practitioner; Visit Provider Nurse Practitioner
DX: M25.562 Pain in left knee (principal); E83.52 Hypercalcemia; R77.8 Other specified abnormalities of plasma proteins; E87.1 Hypo-osmolality and hyponatremia; R30.0 Dysuria; R82.998 Other abnormal findings in urine
CPT/HCPCS: 36415; 73562; 80053; 81003; 81015; 82330; 82397; 84155; 84165; 87086; 87147

== ENCOUNTER → 2023-08-04 13:03 | Outpatient (CLI) | payer MEDICARE, SELFPAY ==
[2019-04-15 10:04] VITALS: BMI 21.7
[2023-08-04 13:28] LABS: Appearance Urine UA CLEAR; Bilirubin Urine UA NEGATIVE (NEGATIVE); Color Urine UA YELLOW; Glucose Urine UA NEGATIVE (Negative); Ketones Urine UA NEGATIVE (NEGATIVE); Leukocyte Esterase Urine UA 1+ (NEGATIVE); Nitrite Urine UA NEGATIVE (Negative); Occult Blood Urine UA NEGATIVE (Negative); Protein Urine UA NEGATIVE (Negative); Specific Gravity Urine UA <=1.005 (1.000-1.035); Urobilinogen Urine UA 0.2 E.U./dL (0.2)
[2023-08-04 13:29] LABS: pH Urine UA 5.5 (4.5-8.0)
[2023-08-04 13:30] LABS: Urine Volume 10mL (spun)
[2023-08-04 13:33] LABS: Bacteria Urine None Seen; Culture Indicated Urine Specimen Cultured; RBC Urine None Seen (0-5/HPF); Squamous Epithelial Cell Urine None Seen (0-5/HPF); WBC Urine 0-1/HPF (0-5/HPF)
== END ==
PROVIDERS: Family Provider Nurse Practitioner; PCP Nurse Practitioner; Referring Provider Nurse Practitioner; Visit Provider Nurse Practitioner
DX: N39.0 Urinary tract infection, site not specified (principal); R30.0 Dysuria
CPT/HCPCS: 81001; 87086

== ENCOUNTER → 2023-08-07 10:59 | Outpatient (CLI) | payer MEDICARE, SELFPAY ==
[2019-04-15 10:04] VITALS: BMI 21.7
[2023-08-07 12:43] LABS: Appearance Urine UA CLEAR; Bilirubin Urine UA NEGATIVE (NEGATIVE); Color Urine UA YELLOW; Glucose Urine UA NEGATIVE (Negative); Ketones Urine UA NEGATIVE (NEGATIVE); Leukocyte Esterase Urine UA NEGATIVE (NEGATIVE); Nitrite Urine UA NEGATIVE (Negative); Occult Blood Urine UA NEGATIVE (Negative); Protein Urine UA NEGATIVE (Negative); Specific Gravity Urine UA <=1.005 (1.000-1.035); Urobilinogen Urine UA 0.2 E.U./dL (0.2)
[2023-08-07 12:51] LABS: Bacteria Urine None Seen; Culture Indicated Urine Cult Not Indicated; RBC Urine None Seen (0-5/HPF); Squamous Epithelial Cell Urine 1-5 /HPF (0-5/HPF); Urine Volume 10mL (spun); WBC Urine None Seen (0-5/HPF)
== END ==
PROVIDERS: Family Provider Nurse Practitioner; PCP Nurse Practitioner; Referring Provider Nurse Practitioner; Visit Provider Nurse Practitioner
DX: N39.0 Urinary tract infection, site not specified (principal); R30.0 Dysuria; R35.0 Frequency of micturition
CPT/HCPCS: 81001

== ENCOUNTER → 2023-08-11 12:18 | Outpatient (CLI) | payer MEDICARE, SELFPAY ==
[2019-04-15 10:04] VITALS: BMI 21.7
== END ==
PROVIDERS: Family Provider Nurse Practitioner; PCP Nurse Practitioner; Visit Provider Nurse Practitioner
DX: R10.2 Pelvic and perineal pain (principal)
CPT/HCPCS: 87070; 87205

== ENCOUNTER → 2023-08-14 12:45 | Outpatient (CLI) | payer MEDICARE, SELFPAY ==
[2019-04-15 10:04] VITALS: BMI 21.7
--- NOTE | 2023-08-14 12:46 | DI.US.S_ITS ---
PROCEDURE: US PELVIC COMPLETE INDICATIONS: PAIN TECHNIQUE: Real-time scanning was performed of the pelvic organs, with image documentation. Additional endovaginal scanning was necessary due to incomplete visualization of the adnexal and endometrial structures by transabdominal scanning. COMPARISON: [facility], US, PELVIC COMPLETE, 08/23/2010, 10:49. CT, ABDOMEN/PELVIS WITH CONTRAST, 08/04/2008, 8:58. FINDINGS: Uterus: Uterus is surgically absent. Ovaries: The right ovary measures 1.2 x 2.8 x 1.0 cm, with a calculated ovarian volume of 1.8 cc. The left ovary is not visualized. Less than 12 follicles in right ovary. No adnexal masses are seen. Other: No pathologic free abdominal or pelvic fluid. IMPRESSION: 1. A cause for pelvic pain is not identified. 2. Hysterectomy. 3. Normal right ovary. Left ovary is not visualized. We strive to produce accurate, complete, and clear reports of imaging services. To assist us in improving patient care, this report was composed using standard report templates and voice recognition software. Therefore, it may contain abnormal punctuation, insertions and/or omissions. Occasional wrong-word or sound-alike substitutions may occur. Though we review the report and make efforts to correct it, we do recommend that the report be read carefully in proper context to recognize any text inaccuracies. Dictated by: Reny Ramos M.D. on 08/15/2023 at 7:24 Approved by: Reny Ramos M.D. on 08/15/2023 at 7:26
== END ==
PROVIDERS: Family Provider Nurse Practitioner; PCP Nurse Practitioner; Referring Provider Nurse Practitioner; Visit Provider Nurse Practitioner
DX: R10.2 Pelvic and perineal pain (principal); Z90.710 Acquired absence of both cervix and uterus
CPT/HCPCS: 76830; 76856; 93976

== ENCOUNTER → 2023-09-29 13:58 | Outpatient (CLI) | payer MEDICARE, SELFPAY ==
[2019-04-15 10:04] VITALS: BMI 21.7
[2023-09-29 15:13] LABS: BUN Creatinine Ratio 12.5 (6-22); Blood Urea Nitrogen 10 mg/dL (7-17); Calcium 9.2 mg/dL (8.4-10.2); Carbon Dioxide 31 mmol/L (22-32); Chloride 101 mmol/L (98-107); Estimated Glomerular Filt Rate > 60 mL/min (>60); Glucose 101 mg/dL (80-110); HEMOLYSIS < 15 (0-50); Potassium 4.5 mmol/L (3.4-5.1); Sodium 135 mmol/L (137-145)
[2023-09-29 16:06] LABS: Sodium Urine Random 71 mmol/L (30-90)
== END ==
PROVIDERS: Family Provider Nurse Practitioner; PCP Nurse Practitioner; Referring Provider Nurse Practitioner; Visit Provider Nurse Practitioner
DX: E87.1 Hypo-osmolality and hyponatremia (principal)
CPT/HCPCS: 36415; 80048; 83935; 84300

== ENCOUNTER → 2023-11-25 12:49 | Outpatient (CLI) | payer MEDICARE, SELFPAY ==
[2019-04-15 10:04] VITALS: BMI 21.7
[2023-11-25 13:57] LABS: Add Manual Diff / Slide Review NO; Basophils Absolute Auto 0 /uL (0-100); Eosinophils Absolute Auto 200 /uL (0-450); Eosinophils Percent Auto 5.1 % (2-4); Hematocrit 36.1 % (36-46); Hemoglobin 12.3 g/dL (12.0-16.0); Lymphocytes Absolute Auto 1100 /uL (1100-4500); Lymphocytes Percent Auto 23.8 % (25-40); Mean Corpuscular HGB Conc 34.2 % (30-36); Mean Corpuscular Hemoglobin 30.3 PG (26-34); Mean Corpuscular Volume 88.7 fL (80-100); Monocytes Absolute Auto 400 /uL (0-900); Monocytes Percent Auto 9.1 % (3-14); Neutrophils Absolute Auto 2700 /uL (1500-7000); Platelet Count 285 X10^3/uL (150-400); Red Blood Cell Count 4.07 X10^6/uL (4.0-5.2); White Blood Cell Count 4.5 X10^3/uL (4.5-11.0)
[2023-11-25 14:08] LABS: Alanine Aminotransferase 18 IU/L (<35); Albumin 4.3 g/dL (3.5-5.0); Albumin Globulin Ratio 1.6 (1.0-2.8); Alkaline Phosphatase 62 U/L (38-126); Aspartate Aminotransferase 23 IU/L (14-36); BUN Creatinine Ratio 11.2 (6-22); Bilirubin Total 0.8 mg/dL (0.2-1.3); Blood Urea Nitrogen 10 mg/dL (7-17); Calcium 9.6 mg/dL (8.4-10.2); Carbon Dioxide 27 mmol/L (22-32); Chloride 99 mmol/L (98-107); Estimated Glomerular Filt Rate > 60 mL/min (>60); Globulin 2.7 g/dL (1.7-4.1); Glucose 113 mg/dL (80-110); HEMOLYSIS < 15 (0-50); Lactate Dehydrogenase 138 U/L (120-246); Potassium 4.3 mmol/L (3.4-5.1); Sodium 131 mmol/L (137-145)
[2023-11-25 14:38] LABS: Cortisol Random 9.23 ug/dL
[2023-11-25 14:39] LABS: Thyroid Stimulating Hormone 1.48 uIU/mL (0.47-4.68)
== END ==
LOC: LAB 12:54
PROVIDERS: Family Provider Nurse Practitioner; PCP Nurse Practitioner
DX: C30.0 Malignant neoplasm of nasal cavity (principal)
CPT/HCPCS: 36415; 80053; 82533; 83615; 84439; 84443; 85025

== ENCOUNTER → 2024-01-05 11:37 | Outpatient (CLI) | payer MEDICARE, SELFPAY ==
[2019-04-15 10:04] VITALS: BMI 21.7
[2024-01-05 12:26] LABS: Add Manual Diff / Slide Review NO; Basophils Absolute Auto 0 /uL (0-100); Basophils Percent Auto 0.7 % (0-2); Eosinophils Absolute Auto 400 /uL (0-450); Eosinophils Percent Auto 7.6 % (2-4); Hematocrit 36.6 % (36-46); Hemoglobin 12.7 g/dL (12.0-16.0); Lymphocytes Absolute Auto 700 /uL (1100-4500); Lymphocytes Percent Auto 12.9 % (25-40); Mean Corpuscular HGB Conc 34.7 % (30-36); Mean Corpuscular Hemoglobin 30.4 PG (26-34); Mean Corpuscular Volume 87.6 fL (80-100); Monocytes Absolute Auto 700 /uL (0-900); Monocytes Percent Auto 12.8 % (3-14); Neutrophils Absolute Auto 3800 /uL (1500-7000); Platelet Count 343 X10^3/uL (150-400); Red Blood Cell Count 4.18 X10^6/uL (4.0-5.2); Red Cell Distribution Width 15.2 % (11.6-14.8); White Blood Cell Count 5.7 X10^3/uL (4.5-11.0)
[2024-01-05 16:41] LABS: Alanine Aminotransferase 14 IU/L (<35); Albumin 3.7 g/dL (3.5-5.0); Albumin Globulin Ratio 1.3 (1.0-2.8); Alkaline Phosphatase 60 U/L (38-126); Aspartate Aminotransferase 25 IU/L (14-36); BUN Creatinine Ratio 19.4 (6-22); Bilirubin Total 0.9 mg/dL (0.2-1.3); Blood Urea Nitrogen 14 mg/dL (7-17); Calcium 9.3 mg/dL (8.4-10.2); Carbon Dioxide 29 mmol/L (22-32); Chloride 97 mmol/L (98-107); Estimated Glomerular Filt Rate > 60 mL/min (>60); Globulin 2.8 g/dL (1.7-4.1); Glucose 90 mg/dL (80-110); HEMOLYSIS < 15 (0-50); Lactate Dehydrogenase 159 U/L (120-246); Potassium 3.9 mmol/L (3.4-5.1); Sodium 131 mmol/L (137-145); Total Protein 6.5 g/dL (6.3-8.2)
[2024-01-05 17:10] LABS: Cortisol Random 13.6 ug/dL
[2024-01-05 17:11] LABS: Free T4, Direct Thyroxine 1.12 ng/dL (0.78-2.19)
[2024-01-05 18:04] LABS: Thyroid Stimulating Hormone 1.59 uIU/mL (0.47-4.68)
== END ==
LOC: LAB 11:39
PROVIDERS: Family Provider Nurse Practitioner; PCP Nurse Practitioner; Referring Provider Nurse Practitioner Acute Care; Visit Provider Nurse Practitioner Acute Care
DX: C30.0 Malignant neoplasm of nasal cavity (principal)
CPT/HCPCS: 36415; 80053; 82533; 83615; 84439; 84443; 85025

== ENCOUNTER → 2024-02-21 10:39 | Outpatient (CLI) | payer MEDICARE, SELFPAY ==
[2019-04-15 10:04] VITALS: BMI 21.7
--- NOTE | 2024-02-21 10:44 | DI.CT.S_ITS ---
PROCEDURE: CT CHEST ABD PEL W CON INDICATIONS: MALIGNANT MELANOMA OF NOSE,ACUTE SINUSITIS TECHNIQUE: After the administration of intravenous contrast, 5 mm thick sections acquired from the lung apices to the symphysis. 5 mm coronal and sagittal reformats were performed, with additional 7 mm MIP reformats through the lungs. For radiation dose reduction, the following was used: automated exposure control, adjustment of mA and/or kV according to patient size. COMPARISON: None. FINDINGS: Image quality: Excellent. CHEST: Lower Neck: No enlarged lymph nodes. Thyroid: No thyroid nodules which require sonographic follow up, per consensus guidelines. Axillae: No enlarged lymph nodes. Chest Wall: Unremarkable. Lungs and Pleura: No pneumothorax or pleural effusions. No consolidation or suspicious nodules. Heart: Heart size is normal. No pericardial effusion. Pacemaker Thoracic Vessels: The aorta and pulmonary arteries demonstrate normal size. Mediastinum and Randa: No enlarged lymph nodes. Esophagus: No wall thickening. No hiatal hernia. ABDOMEN: Liver: No solid mass. Gallbladder: No radiopaque gallstones or wall thickening. Biliary ducts: No biliary dilation. Pancreas: No ductal dilation. Spleen: Size is within normal limits. Adrenal Glands: No adrenal nodules. Kidneys and Ureters: No hydronephrosis. No solid mass. No complex renal cystic lesion which requires follow up. Stomach and Bowel: Normal colonic caliber, without significant wall thickening. Peritoneum: No abnormal intraperitoneal fluid. No free air. Ventral Wall: No significant ventral hernia. Abdominal Nodes: No retroperitoneal or mesenteric adenopathy by size criteria. Vessels: Aorta and inferior vena cava are normal in size. PELVIS: Pelvic Organs: Unremarkable. Bladder: No bladder wall thickening, accounting for underdistention. Pelvic Nodes: No enlarged lymph nodes. Miscellaneous: No inguinal hernias are seen. Bones: No aggressive osseous abnormality. IMPRESSION: No evidence of metastatic disease in the chest, abdomen, and pelvis. Dictated by: Ap Barragan M.D. on 02/21/2024 at 13:30 Approved by: Ap Barragan M.D. on 02/21/2024 at 13:34
--- NOTE | 2024-02-21 10:46 | DI.CT.S_ITS ---
PROCEDURE: CT SOFT TISSUE NECK W CON INDICATIONS: MALIGNANT MELANOMA OF NOSE,ACUTE SINUSITIS TECHNIQUE: After the administration of intravenous contrast, 3.0 mm axial sections acquired from the sella to the aortic arch. Additional oblique axial 3.0 mm sections acquired through the pharynx. 3 mm thick coronal and sagittal reformats were generated. For radiation dose reduction, the following was used: automated exposure control. COMPARISON: [facility], CT, CT CHEST ABD PEL W CON, 02/21/2024, 12:13. FINDINGS: Image quality: Excellent. Lymph nodes: No enlarged lymph nodes seen throughout the neck. Vessels: Visualized vasculature appears patent. Neck spaces: The oropharynx, nasopharynx, and pharynx demonstrate no mucosal lesions. The vocal cords, false vocal cords, pyriform sinuses, epiglottis, vallecula, and tongue base all appear normal. Extramucosal spaces appear unremarkable. Glands: The parotid and submandibular glands appear normal. Thyroid gland is unremarkable. Miscellaneous: Visualized brain and orbits appear normal. Lung apices appear clear. Superficial soft tissues appear normal. Bones: No suspicious bony lesions. Extensive paranasal sinus surgery. The medial wall of the left maxillary sinus and most of the left ethmoids and the left middle and lower nasal turbinates and the ostiomeatal complex and the nasal septum have been resected, as well as the right middle nasal turbinates. There is a moderate air-fluid level in the right maxillary sinus as well as right maxillary sinus mucosal thickening. There is partial opacification the right ethmoids. The left frontal sinus is clear. The left frontal sinus is hypoaerated. Dependent tissue in the left maxillary sinus region. IMPRESSION: 1. Extensive remote nasal passage and paranasal sinus surgery as described above. 2. Acute on chronic right maxillary sinus. Subtotal opacification the right ethmoids. Dependent tissue in the left maxillary sinus region. 3. No evidence of metastatic disease in the neck. Dictated by: Ap Barragan M.D. on 02/21/2024 at 13:34 Approved by: Ap Barragan M.D. on 02/21/2024 at 13:39
== END ==
PROVIDERS: Family Provider Nurse Practitioner; PCP Nurse Practitioner; Visit Provider Radiology Therapeutic Radiology
DX: C43.31 Malignant melanoma of nose (principal); J01.11 Acute recurrent frontal sinusitis; J01.00 Acute maxillary sinusitis, unspecified; J32.0 Chronic maxillary sinusitis; Z98.890 Other specified postprocedural states
CPT/HCPCS: 70491; 71260; 74177; Q9967

== ENCOUNTER → 2024-08-17 10:46 | Outpatient (CLI) | payer MEDICARE, SELFPAY ==
[2019-04-15 10:04] VITALS: BMI 21.7
--- NOTE | 2024-08-17 11:49 | DI.RAD.S_ITS ---
PROCEDURE: XR CHEST 2V INDICATIONS: cough TECHNIQUE: 2 views of the chest were acquired. COMPARISON: [facility], CR, XR CHEST 2V, 04/14/2023, 15:52. FINDINGS: Heart, mediastinum and pulmonary vascular: Heart is normal in size and configuration. AICD is in stable position without complication Mediastinum is unremarkable. Pulmonary vascular is normal. Lungs: Clear Pleural spaces: Normal-no effusions or pneumothorax. IMPRESSION: No cardiopulmonary disease Dictated by: Ray Armstrong M.D. on 08/18/2024 at 6:22 Approved by: Ray Armstrong M.D. on 08/18/2024 at 6:23
== END ==
PROVIDERS: Family Provider Nurse Practitioner; PCP Nurse Practitioner Family; Referring Provider Nurse Practitioner Family; Visit Provider Nurse Practitioner Family
DX: R05.9 Cough, unspecified (principal); Z95.810 Presence of automatic (implantable) cardiac defibrillator
CPT/HCPCS: 71046

== ENCOUNTER → 2024-08-26 15:36 | Outpatient (CLI) | payer MEDICARE, SELFPAY ==
[2019-04-15 10:04] VITALS: BMI 21.7
--- NOTE | 2024-08-26 15:38 | DI.RAD.S_ITS ---
PROCEDURE: XR CHEST 2V INDICATIONS: coughing TECHNIQUE: 2 views of the chest were acquired. COMPARISON: [facility], CR, XR CHEST 2V, 08/17/2024, 11:44. [facility], CR, XR CHEST 2V, 04/14/2023, 15:52. FINDINGS: Surgical changes and devices: None. Lungs and pleura: More prominent linear parenchymal densities at the left base posteriorly. Mediastinum: Normal size of the heart. Stable cardiac conduction device. Bones and chest wall: No suspicious bony abnormalities. Soft tissues appear unremarkable. IMPRESSION: Increased density at the left base posteriorly, may represent atelectasis, short-term follow-up study may be obtained to exclude developing pneumonia. Dictated by: Jaylen Bucriaga M.D. on 08/26/2024 at 21:51 Approved by: Jaylen Burciaga M.D. on 08/26/2024 at 21:53
== END ==
PROVIDERS: Family Provider Nurse Practitioner; PCP Nurse Practitioner Family; Referring Provider Nurse Practitioner Family; Visit Provider Nurse Practitioner Family
DX: R05.9 Cough, unspecified (principal); R06.02 Shortness of breath; R06.2 Wheezing
CPT/HCPCS: 71046

== ENCOUNTER → 2024-09-14 15:06 | Outpatient (CLI) | payer MEDICARE, SELFPAY ==
[2019-04-15 10:04] VITALS: BMI 21.7
--- NOTE | 2024-09-14 15:09 | DI.RAD.S_ITS ---
PROCEDURE: XR CHEST 2V INDICATIONS: repeat to verify infection resolution TECHNIQUE: 2 views of the chest were acquired. COMPARISON: [facility], CR, XR CHEST 2V, 08/26/2024, 15:33. FINDINGS: Heart, mediastinum and pulmonary vascular: Heart is normal in size and configuration. AICD device in stable satisfactory position without complication . Mediastinum is unremarkable. Pulmonary vascular is normal. Lungs: Clear Pleural spaces: Normal-no effusions or pneumothorax. IMPRESSION: No cardiopulmonary disease. Dictated by: Ray Armstrong M.D. on 09/15/2024 at 12:51 Approved by: Ray Armstrong M.D. on 09/15/2024 at 12:52
== END ==
PROVIDERS: Family Provider Nurse Practitioner; PCP Nurse Practitioner Family; Referring Provider Nurse Practitioner Family; Visit Provider Nurse Practitioner Family
DX: J18.9 Pneumonia, unspecified organism (principal); R06.02 Shortness of breath; R05.9 Cough, unspecified
CPT/HCPCS: 71046

== ENCOUNTER 2024-10-11 09:44 | Emergency (ER) | payer MEDICARE, SELFPAY ==
[2019-04-15 10:04] VITALS: BMI 21.7
[2024-10-11] VITALS (15 sets, daily range): BP systolic 136–186; BP diastolic 77–114; PULSE 69–93; RESP 13–24; TEMP 36.2–36.6; O2SAT 96–100; BMI 19.3
--- NOTE | 2024-10-11 09:51 | EKG_ITS ---
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
--- NOTE | 2024-10-11 09:52 | DI.RAD.S_ITS ---
PROCEDURE: XR CHEST 1V INDICATIONS: seizure activity (1st time) hx of brain tumor TECHNIQUE: One view of the chest was acquired. COMPARISON: [facility], CR, XR CHEST 2V, 09/14/2024, 14:26. [facility], CR, XR CHEST 2V, 08/26/2024, 15:33. FINDINGS: Surgical changes and devices: Left chest wall generator with cardiac leads. Lungs and pleura: Lungs are clear. No pleural effusions or pneumothorax. Mediastinum: Mediastinal contours appear normal. Heart size is normal. Bones and chest wall: No suspicious bony lesions. Overlying soft tissues appear unremarkable. IMPRESSION: No acute cardiopulmonary abnormality is seen. Dictated by: Ismael Giron M.D. on 10/11/2024 at 10:09 Approved by: Ismael Giron M.D. on 10/11/2024 at 10:10
--- NOTE | 2024-10-11 09:52 | DI.CT.S_ITS ---
PROCEDURE: CT HEAD/BRAIN WO CON INDICATIONS: seizure activity (1st time) hx of brain tumor TECHNIQUE: Noncontrast 4.5 mm thick angled axial sections acquired from the foramen magnum to the vertex, with coronal and sagittal reformats. For radiation dose reduction, the following was used: automated exposure control, adjustment of mA and/or kV according to patient size. COMPARISON: [facility], CT, CT HEAD/BRAIN WO CON, 05/07/2022, 14:24. FINDINGS: Image quality: Diagnostic. CSF spaces: Basal cisterns are patent. No extra-axial fluid collections. Ventricles are normal in size and shape. Brain: Hyperattenuating mass in the right frontal lobe with surrounding vasogenic edema. This measures 1.8 x 2.4 x 1.4 centimeter. No significant mass effect. No herniation. Skull and face: Calvarium and visualized facial bones are intact, without suspicious lesions. Sinuses: Surgical changes of the sinuses. Acute on chronic right maxillary sinusitis. IMPRESSION: New right frontal lobe hyperattenuating lesion measuring 2.4 x 1.8 x 1.4 centimeter. There is surrounding vasogenic edema. 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 This can be confirmed with MRI with contrast. No midline shift or herniation. Remote nasal surgery. Dictated by: Ismael Giron M.D. on 10/11/2024 at 10:10 Approved by: Ismael Giron M.D. on 10/11/2024 at 10:12
--- NOTE | 2024-10-11 09:53 | ED.SEIZURE ---
HPI - Seizure General Chief Complaint: Seizure Stated Complaint: seizure Time Seen by Provider: 10/11/24 09:45 Source: patient, EMS, RN notes reviewed and old records reviewed Mode of arrival: EMS Limitations: altered mental status History of Present Illness HPI Narrative: 64-year-old female with reported history of brain tumor, defibrillator who presents with seizure-like activity at home. EMS states patient has has been witnessed tonic-clonic activity they also noted a laceration of the side of the tongue states she appears to be postictal with slowly improving mentation. No reported history of seizure activity but was told she could have one secondary to her tumor and his on gabapentin prophylactically for this. Patient was describes mild headache. She denies chest pain or shortness of breath. She had active nausea and vomiting here in the department, no incontinence appreciated. No numbness tingling or weakness patient has good movement of all of her extremities. She was somewhat conversant but has difficulty remembering things but answers some questions. No family at bedside currently. Glucose in the field was reported normal. No additional to be EMS EN route. 1053: Patient's partner and DPOA presented. 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 Had negative PET scans but had an MR that found a small lesion in the right frontal region and had 2 or 3 rounds of radiation again in the last 6 months. Patient follows with Siva Serrano for her care. Related Data Home Medications ?Medication ?Instructions ?Recorded ?Confirmed acetaminophen 500 mg tablet 1,000 mg PO TID PRN pain 07/13/23 08/26/24 (Tylenol Extra Strength) Previous Rx's ?Medication ?Instructions ?Recorded Estradiol 0.1% Ellage Vaginal Cream See Rx Instructions .Route 07/14/23 .COMPLEX #36 applic amlodipine 5 mg tablet 5 mg PO DAILY #90 tabs 11/18/23 metoprolol succinate 50 mg 75 mg (1.5 x 50 mg) PO DAILY 90 11/18/23 tablet,extended release 24 hr days #135 tabs fluoxetine 60 mg tablet 60 mg PO DAILY #90 tabs 05/26/24 sumatriptan succinate 50 mg tablet See Rx Instructions PO .COMPLEX 05/26/24 #20 tabs buspirone 5 mg tablet 5 mg PO BID #60 tabs 08/17/24 albuterol sulfate 90 mcg/actuation 1 inh inhalation Q6H PRN shortness 08/26/24 aerosol inhaler of breath or wheezing #8.5 grams azithromycin 250 mg tablet See Rx Instructions PO .COMPLEX #6 08/26/24 tabs alprazolam 0.5 mg tablet 0.5 mg PO DAILY PRN anxiety #7 tabs 09/16/24 Allergies Allergy/AdvReac Type Severity Reaction Status Date / Time duloxetine (DULOXETINE) Allergy Mild RASH, Verified 10/11/24 09:55 INCREASED HEART RATE. lisinopril AdvReac Mild sore throat Verified 10/11/24 09:55 Review of Systems Review of Systems ROS Unobtainable: All systems reviewed & are unremarkable except as noted in HPI and below Patient History Medical History Agnosia for taste Agnosia for smell Melanoma Frequent UTI Elevated TSH Herniated disc Basal cell carcinoma Allergies PTSD (post-traumatic stress disorder) ADHD Carpal tunnel syndrome Recurrent sinusitis Hearing loss Cardiac arrhythmia Skin cancer Migraine H/O hypertensive crisis Bronchitis Spinal stenosis Alcohol abuse Idiopathic ventricular tachycardia Depression Chest pain syndrome Chronic back pain Chronic headaches Loss of smell UTI (urinary tract infection) Arthritis Hypertension Tachyarrhythmia Hypertension Surgical History Anesthesia History of bilateral carpal tunnel release H/O: hysterectomy H/O laparoscopy History of hysteroscopy Hx of arthroscopy of right knee (07/04/15) History of implantable cardioverter-defibrillator (ICD) placement Status post surgery (09/02/10) Status post surgery (02/12/09) Family History Grandfather Stroke Grandmother Dementia Social History household members: significant other Smoking Status: Unknown if ever smoked alcohol intake: current alcohol intake frequency: holidays/special occasions only Exam Narrative Exam Narrative: GEN: well nourished, female, alert and oriented to self, patient is oriented to location no she was at a hospital but not which one, patient attempts to answer questions but is slow to respond, patient appears to be in moderate distress. HEENT: Atraumatic, pupils are equal round reactive to light, extraocular movements are intact, nares are clear, TMs are clear with no fluid, there is no conjunctival pallor. Throat is clear without any exudates, erythema, tonsillar enlargement or uvular deviation, no facial droop. Patient does have a small superficial laceration on the right lateral portion of her tongue. No active bleeding. HEART: Regular rate and rhythm without murmur, clicks, rubs. Pulses are equal in upper and lower extremities. Patient was easily visualized and palpated defibrillator present. LUNGS:Lungs clear to auscultation, no wheezes, rales, crackles, chest moves symmetrically ABD:bowel sounds normal, soft, non-tender, no guarding, rebound, rigidity, no masses noted, no hepatosplenomegaly :No CVA tenderness MSCL: Non-tender, no muscle atrophy, muscles strength 5/5 upper and lower extremities, full range of motion. NEURO:CN 2-12 intact, sensation normal, reflexes 2/4 upper and lower extremities, c architect are equal bilaterally. Initial Vital Signs Initial Vital Signs: Vital Signs Temperature 97.2 F L 10/11/24 09:45 Pulse Rate 91 H 10/11/24 09:45 Respiratory Rate 18 10/11/24 09:45 Blood Pressure 171/101 H 10/11/24 09:45 Pulse Oximetry 100 10/11/24 09:45 Oxygen Delivery Method Room Air 10/11/24 09:45 Scores GCS [place] coma scale eye opening: Spontaneous [place] coma scale verbal response: Confused [place] coma scale motor response: Obey commands [place] coma scale total score: 14 Course Orders Ordered: ED Orders 10/11/24 11:54 Urinalysis and Microscopic Stat Urine Drug Screen, Rapid Stat Discontinued Medications Acetaminophen (Acetaminophen 325 Mg Tablet) 650 mg PO NOW ONE Stop: 10/11/24 11:54 Last Admin: 10/11/24 11:56 Dose: 650 mg Documented By: TIFF Dexamethasone (Dexamethasone 10 Mg/Ml Vial) 10 mg IV NOW ONE Stop: 10/11/24 10:22 Last Admin: 10/11/24 10:28 Dose: 10 mg Documented By: TIFF Dexamethasone (Dexamethasone 4 Mg/Ml Vial) 4 mg IV Q6H JORGE Sodium Chloride (Normal Saline 0.9%) 1,000 mls @ 1,000 mls/hr IV BOLUS ONE Stop: 10/11/24 10:50 Last Infusion: 10/11/24 11:52 Dose: Infused Documented By: Admin: 10/11/24 10:09 Dose: 1,000 mls/hr Documented By: TIFF Levetiracetam 1,000 mg/ Sodium (Chloride) 110 mls @ 440 mls/hr IV NOW ONE Stop: 10/11/24 09:53 Last Infusion: 10/11/24 10:43 Dose: Infused Documented By: Admin: 10/11/24 10:09 Dose: 440 mls/hr Documented By: TIFF Levetiracetam 1,000 mg/ Sodium (Chloride) 110 mls @ 440 mls/hr IV Q12H JORGE Midazolam HCl (Midazolam 5 Mg/Ml Vial) 0.5 mg IV NOW ONE Stop: 10/11/24 10:22 Last Admin: 10/11/24 10:28 Dose: 0.5 mg Documented By: TIFF Morphine Sulfate (Morphine 4 Mg/Ml Inj) 4 mg IV NOW ONE Stop: 10/11/24 15:05 Last Admin: 10/11/24 15:22 Dose: 4 mg Documented By: TIFF Ondansetron HCl (Ondansetron 4 Mg/2 Ml Inj) 4 mg IV NOW ONE Stop: 10/11/24 09:59 Last Admin: 10/11/24 10:09 Dose: 4 mg Documented By: TIFF Ondansetron HCl (Ondansetron 4 Mg/2 Ml Inj) 4 mg IV NOW ONE Stop: 10/11/24 15:19 Last Admin: 10/11/24 15:21 Dose: 4 mg Documented By: TIFF Vital Signs Vital signs: Vital Signs - 8 hr 10/11/24 12:00 10/11/24 12:30 10/11/24 13:00 Temperature Pulse Rate 73 73 78 Respiratory Rate 19 15 16 Blood Pressure Pulse Oximetry 97 99 97 10/11/24 13:30 10/11/24 14:00 10/11/24 14:30 Temperature Pulse Rate 78 87 87 Respiratory Rate 13 15 Blood Pressure Pulse Oximetry 97 96 97 10/11/24 15:00 10/11/24 15:13 10/11/24 15:13 Temperature 98 F Pulse Rate 86 87 Respiratory Rate 17 21 Blood Pressure 136/80 136/80 Pulse Oximetry 98 99 MDM - Seizure Lab Data 10/11/24 09:40 10/11/24 09:40 Labs: Lab Results 10/11/24 10/11/24 10/11/24 Range/Units 09:40 11:45 11:54 WBC 6.0 (4.5-11.0) X10^3/uL RBC 4.49 (4.0-5.2) X10^6/uL Hgb 13.6 (12.0-16.0) g/dL Hct 40.8 (36-46) % MCV 91.0 (80-100) fL MCH 30.2 (26-34) PG MCHC 33.2 (30-36) % RDW 14.8 (11.6-14.8) % Plt Count 334 (150-400) X10^3/uL Neut % (Auto) 53.2 (50-75) % Lymph % (Auto) 35.7 (25-40) % [place] % (Auto) 7.8 (3-14) % Eos % (Auto) 2.5 (2-4) % Baso % (Auto) 0.8 (0-2) % Neut # (Auto) 3200 (0921-4827) /uL Lymph # (Auto) 2100 (9920-4400) /uL [place] # (Auto) 500 (0-900) /uL Eos # (Auto) 200 (0-450) /uL Baso # (Auto) 0 (0-100) /uL PT 11.1 (9.4-12.5) SECONDS INR 1.0 (0.9-1.3) APTT 26 (25.1-36.5) SECONDS Sodium 132 L (137-145) mmol/L Potassium 3.8 (3.4-5.1) mmol/L Chloride 101 (98-107) mmol/L Carbon Dioxide 15 L (22-32) mmol/L BUN 14 (7-17) mg/dL Creatinine 0.73 (0.52-1.04) mg/dL Estimated GFR > 60 (>60) mL/min BUN/Creatinine Ratio 19.2 (6-22) Glucose 135 H (70-99) mg/dL Lactate 8.5 H* 1.3 (0.7-2.1) mmol/L Calcium 9.3 (8.4-10.2) mg/dL Total Bilirubin 1.0 (0.2-1.3) mg/dL AST 32 (14-36) IU/L ALT 24 (<35) IU/L Alkaline Phosphatase 81 (38-126) U/L Total Protein 7.8 (6.3-8.2) g/dL Albumin 4.6 (3.5-5.0) g/dL Globulin 3.2 (1.7-4.1) g/dL Albumin/Globulin Ratio 1.4 (1.0-2.8) TSH 4.93 H (0.47-4.68) uIU/mL Prolactin 39.7 H (3.0-18.6) ng/mL Urine Color Yellow Urine Appearance Clear Urine pH 7.0 (4.5-8.0) Ur Specific [place] 1.010 (1.000-1.035) Urine Protein Negative (Negative) Urine Glucose (UA) Negative (Negative) g/dL Urine Ketones Negative (NEGATIVE) Urine Occult Blood Negative (Negative) Urine Nitrate Negative (Negative) Urine Bilirubin Negative (NEGATIVE) Urine Urobilinogen 0.2 (0.2) E.U./dL Ur Leukocyte Esterase Negative (NEGATIVE) Urine RBC None seen (0-5/HPF) Urine WBC None seen (0-5/HPF) Ur Squamous Epith Cells 0-1 /hpf (0-5/HPF) Ur Transition Epith Cell 0-1/hpf (0-5/HPF) Amorphous Sediment 1+ Urine Bacteria None seen (None) Ur Culture Indicated? Cult not indicated Vol Urine Centrifuged 10ml (spun) U Opiates 300ng/mL cut Negative (Negative) Ur Oxycodone Screen Negative (Negative) Urine Methadone Screen Negative (Negative) Ur Barbiturates Screen Negative (Negative) U Tricyclic Antidepress Negative (Negative) Ur Phencyclidine Scrn Negative (Negative) Ur Amphetamines Screen Negative (Negative) U Methamphetamines Scrn Negative (Negative) Ur MDMA Scrn (Ecstasy) Negative (Negative) U Benzodiazepines Scrn Negative (Negative) Urine Cocaine Screen Negative (Negative) U Marijuana (THC) Screen Negative (Negative) Urine Specific [place] (Normal) Ethyl Alcohol < 10 (<10) mg/dL Ur Creatinine (Normal) 10/11/24 Range/Units 11:54 WBC (4.5-11.0) X10^3/uL RBC (4.0-5.2) X10^6/uL Hgb (12.0-16.0) g/dL Hct (36-46) % MCV (80-100) fL MCH (26-34) PG MCHC (30-36) % RDW (11.6-14.8) % Plt Count (150-400) X10^3/uL Neut % (Auto) (50-75) % Lymph % (Auto) (25-40) % [place] % (Auto) (3-14) % Eos % (Auto) (2-4) % Baso % (Auto) (0-2) % Neut # (Auto) (1066-0039) /uL Lymph # (Auto) (5411-7881) /uL [place] # (Auto) (0-900) /uL Eos # (Auto) (0-450) /uL Baso # (Auto) (0-100) /uL PT (9.4-12.5) SECONDS INR (0.9-1.3) APTT (25.1-36.5) SECONDS Sodium (137-145) mmol/L Potassium (3.4-5.1) mmol/L Chloride (98-107) mmol/L Carbon Dioxide (22-32) mmol/L BUN (7-17) mg/dL Creatinine (0.52-1.04) mg/dL Estimated GFR (>60) mL/min BUN/Creatinine Ratio (6-22) Glucose (70-99) mg/dL Lactate (0.7-2.1) mmol/L Calcium (8.4-10.2) mg/dL Total Bilirubin (0.2-1.3) mg/dL AST (14-36) IU/L ALT (<35) IU/L Alkaline Phosphatase (38-126) U/L Total Protein (6.3-8.2) g/dL Albumin (3.5-5.0) g/dL Globulin (1.7-4.1) g/dL Albumin/Globulin Ratio (1.0-2.8) TSH (0.47-4.68) uIU/mL Prolactin (3.0-18.6) ng/mL Urine Color Urine Appearance Urine pH Normal (4.5-8.0) Ur Specific [place] (1.000-1.035) Urine Protein (Negative) Urine Glucose (UA) (Negative) g/dL Urine Ketones (NEGATIVE) Urine Occult Blood (Negative) Urine Nitrate (Negative) Urine Bilirubin (NEGATIVE) Urine Urobilinogen (0.2) E.U./dL Ur Leukocyte Esterase (NEGATIVE) Urine RBC (0-5/HPF) Urine WBC (0-5/HPF) Ur Squamous Epith Cells (0-5/HPF) Ur Transition Epith Cell (0-5/HPF) Amorphous Sediment Urine Bacteria (None) Ur Culture Indicated? Vol Urine Centrifuged U Opiates 300ng/mL cut (Negative) Ur Oxycodone Screen (Negative) Urine Methadone Screen (Negative) Ur Barbiturates Screen (Negative) U Tricyclic Antidepress (Negative) Ur Phencyclidine Scrn (Negative) Ur Amphetamines Screen (Negative) U Methamphetamines Scrn (Negative) Ur MDMA Scrn (Ecstasy) (Negative) U Benzodiazepines Scrn (Negative) Urine Cocaine Screen (Negative) U Marijuana (THC) Screen (Negative) Urine Specific [place] Normal (Normal) Ethyl Alcohol (<10) mg/dL Ur Creatinine Abnormal A (Normal) ECG Data Attestation: I personally reviewed and interpreted this ECG as follows: Prior ECG tracings: available for review Interpretation: Sinus rhythm rate 83 MI 166 QRS 80 QTC of [address] elevation depression noted. Patient was prior from 03/25/2023 which appears similar to today. [facility] Narrative Medical decision making narrative: 64-year-old female with reported history of brain tumor and seizure-like activity witnessed by her no additional activity noted by EMS. Patient appears to be postictal with slowly improving mentation per EMS. Glucose in the field was appropriate. With her history head CT, labs EKG and urine were ordered. 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 Chest x-ray shows no acute cardiopulmonary abnormality. EKG shows sinus rhythm no acute ST changes, appears similar to March 2023. Labs show normal white count, hemoglobin and platelets, coags are negative, sodium is 132 CO2 is 15 electrolytes are otherwise appropriate BUN and creatinine are normal lactate is 8.5 glucose is 135 LFTs are negative TSH Prolactin is 39. ETOH is normal. Repeat lactate is 1.3. Urine Patient received fluids, loaded with Keppra. Patient received Zofran and still had some additional emesis and received midazolam. CT shows what is likely hemorrhagic melena metastases received a dose of dexamethasone as there some surrounding vasogenic edema. Spoke with the patient and family: Patient is still somewhat postictal had also received some Versed to help with nausea and vomiting but has had some slow improvement but not normalization to her mental status. Patient's partner who is also her DPOA notes she gets all of her care through [facility] we will reach out to them. Spoke with coordinator [id number], will page out. [id number] Samuels with neurosurgery at accepts for transfer. He asked that we make sure she was loaded with Keppra and give her 10 mg of dexamethasone if not already don. Plan for transfer today if bed is not available would ask for ED to ED transfer. Discussed we will continue with 4 mg dexamethasone q.6 hours as well as Keppra scheduled. He notes patient can eat today but plan for OR tomorrow morning. Spoke with patient she was agreeable to transfer. She was sleeping but awakens easily he is conversant on repeat exam, no new acute neurologic changes no recurrent seizure activity in the department. Plan for ALS transfer for seizure precautions, hemodynamic and airway monitoring. Critical Care Time Critical Care Time Critical Care Time: Yes Total Critical Care Time: 30 Attestation: The high probability of a clinically significant, sudden or life threatening deterioration of the neurologic system(s) required my full and direct attention, intervention and personal management. The aggregate critical care time was [--] minutes. This time is in addition to time spent performing reported procedures but includes the following: [x] Data Review and interpretation [x] Patient assessment and monitoring of vital signs [x] Documentation [x] Medication orders and management Discharge Plan [facility] Impression: Seizure, Brain mass, Intracranial hemorrhage Prescriptions: No Action Estradiol 0.1% Ellage Vaginal Cream See Rx Instructions .ROUTE .COMPLEX Qty: 36 2RF Rx Instructions: Insert vaginally 2-3 times weekly at bedtime, Disp 90 day supply alprazolam 0.5 mg tablet 0.5 mg PO DAILY PRN (Reason: anxiety) Qty: 7 0RF Rx Instructions: Take 30 minutes prior to travel acetaminophen [Tylenol Extra Strength] 500 mg tablet 1,000 mg PO TID PRN (Reason: pain) Rx Instructions: Not to exceed 3000mg/24 hours, ok to take with Ketorolac for knee pain metoprolol succinate 50 mg tablet extended release 24 hr 75 mg PO DAILY 90 Days Qty: 135 2RF amlodipine 5 mg tablet 5 mg PO DAILY Qty: 90 3RF buspirone 5 mg tablet 5 mg PO BID Qty: 60 0RF sumatriptan succinate 50 mg tablet See Rx Instructions PO .COMPLEX Qty: 20 4RF Rx Instructions: take 1 tab at onset of headache; if no relief may repeat 1 tab after at least 2 hrs; max = 4 tabs/24 hr PO fluoxetine 60 mg tablet 60 mg PO DAILY Qty: 90 3RF albuterol sulfate 90 mcg/actuation HFA aerosol inhaler 1 inh inhalation Q6H PRN (Reason: shortness of breath or wheezing) Qty: 8.5 0RF azithromycin 250 mg tablet See Rx Instructions PO .COMPLEX Qty: 6 0RF Rx Instructions: For 250 mg dose pack: take 500 mg today (day 1), then 250 mg for 4 days (days 2-5) PO Referrals: Mihaela Unger, TRANSITION COACH-BC [Primary Care Provider, Family Practice]
[2024-10-11 10:01] LABS: Add Manual Diff / Slide Review NO; Hematocrit 40.8 % (36-46); Hemoglobin 13.6 g/dL (12.0-16.0); Lymphocytes Absolute Auto 2100 /uL (1100-4500); Mean Corpuscular HGB Conc 33.2 % (30-36); Mean Corpuscular Hemoglobin 30.2 PG (26-34); Mean Corpuscular Volume 91.0 fL (80-100); Platelet Count 334 X10^3/uL (150-400)
[2024-10-11 10:08] LABS: INR 1.0 (0.9-1.3); Prothrombin Time 11.1 SECONDS (9.4-12.5)
[2024-10-11] MEDS: SODIUM CHLORIDE 0.9% 1,000 ML 1000 ML IV (10:09)
[2024-10-11] MEDS: ONDANSETRON 4 MG/2 ML INJ IV ×2 (10:09→15:21)
[2024-10-11 10:10] LABS: PTT Partial Thromboplastin Tim 26 SECONDS (25.1-36.5)
[2024-10-11 10:12] LABS: Alanine Aminotransferase 24 IU/L (<35); Albumin 4.6 g/dL (3.5-5.0); Albumin Globulin Ratio 1.4 (1.0-2.8); Alkaline Phosphatase 81 U/L (38-126); Blood Urea Nitrogen 14 mg/dL (7-17); Calcium 9.3 mg/dL (8.4-10.2); Carbon Dioxide 15 mmol/L (22-32); Chloride 101 mmol/L (98-107); Estimated Glomerular Filt Rate > 60 mL/min (>60); Ethanol (ETOH) < 10 mg/dL (<10); Globulin 3.2 g/dL (1.7-4.1); Glucose 135 mg/dL (70-99); HEMOLYSIS < 15 (0-50); Potassium 3.8 mmol/L (3.4-5.1); Sodium 132 mmol/L (137-145); Total Protein 7.8 g/dL (6.3-8.2)
[2024-10-11] MEDS: DEXAMETHASONE 10 MG/ML VIAL IV (10:28)
[2024-10-11] MEDS: MIDAZOLAM 5 MG/ML VIAL IV (10:28)
[2024-10-11 10:38] LABS: Lactate (Lactic Acid) 8.5 mmol/L (0.7-2.1)
[2024-10-11 10:44] LABS: Thyroid Stimulating Hormone 4.93 uIU/mL (0.47-4.68)
[2024-10-11 11:32] LABS: Reflexed Lactate in 2 Hours Y
[2024-10-11] MEDS: ACETAMINOPHEN 325 MG TABLET 650 MG PO (11:56)
[2024-10-11 11:59] LABS: Lactate 2HR (Lactic Acid Rflx) 1.3 mmol/L (0.7-2.1)
[2024-10-11 12:22] LABS: Appearance Urine UA CLEAR; Bilirubin Urine UA NEGATIVE (NEGATIVE); Color Urine UA YELLOW; Glucose Urine UA NEGATIVE (Negative); Ketones Urine UA NEGATIVE (NEGATIVE); Leukocyte Esterase Urine UA NEGATIVE (NEGATIVE); Nitrite Urine UA NEGATIVE (Negative); Occult Blood Urine UA NEGATIVE (Negative); Protein Urine UA NEGATIVE (Negative); Specific Gravity Urine UA 1.010 (1.000-1.035); Urobilinogen Urine UA 0.2 E.U./dL (0.2)
[2024-10-11 12:45] LABS: pH Urine UA 7.0 (4.5-8.0)
[2024-10-11 12:46] LABS: Culture Indicated Urine Cult Not Indicated
[2024-10-11 12:57] LABS: UR Morphine/Opiate cutoff 300 Negative (Negative); Ur Specific Gravity Normal (Normal); Urine MDMA Negative (Negative); Urine Methamphetamines Negative (Negative); Urine Tetrahydrocannabinol Negative (Negative); Urine Tricyclic Antidepressant Negative (Negative)
[2024-10-11] MEDS: MORPHINE 4 MG/ML INJ IV (15:22)
--- NOTE | 2024-10-11 15:39 | PC.NURSE ---
Report given to MARIN Guevara at
== END 2024-10-11 15:41 | disposition short-term general hospital (02) ==
PROVIDERS: Emergency Provider Emergency Medicine; Family Provider Nurse Practitioner; PCP Nurse Practitioner Family
DX: G93.89 Other specified disorders of brain (principal); I62.9 Nontraumatic intracranial hemorrhage, unspecified; R56.9 Unspecified convulsions; S01.512A Laceration without foreign body of oral cavity, initial encounter; R51.9 Headache, unspecified; R11.2 Nausea with vomiting, unspecified
CPT/HCPCS: 36415; 70450; 71045; 80053; 80305; 80320; 81001; 83605; 84146; 84443; 85025; 85610; 85730; 93005; 93010; 96361; 96365; 96375; 96376; 99284; 99291; J1100; J1953; J2250; J2270; J2405